=== PATIENT | female | born 1990 | race Caucasian/White ===

== ENCOUNTER 2016-06-02 20:57 | Emergency (ER) | payer SELFPAY ==
[2016-06-02 21:16] VITALS: BMI 29.0
--- NOTE | 2016-06-02 22:37 | PDOC ---
History of Present Illness - General History Source: Patient Exam Limitations: No Limitations - History of Present Illness Initial Comments: 06/02/16 22:46 Patient is a 26 year old female, , with no significant past medical history who presents to the ED accompanied by daughter who present to the ED with complaint of nausea, vomiting, cough, fever and headache. Patient reports 3 episodes of vomiting and constant nausea. Patient notes that she took 1 advil to alleviate the fever with no relief. She denies any recent travel. 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 <Marika Patel - Last Filed: 06/02/16 23:20> <Shahnaz Mckeon - Last Filed: 06/03/16 00:25> - General Chief Complaint: SIRS, Suspected/Possible Stated Complaint: HEADACHE/FEVER/PAIN Time Seen by Provider: 06/02/16 22:02 Past History <Marika Patel - Last Filed: 06/02/16 23:20> - Past Medical History Cardiac Disorders: Yes (no meds) HTN: Yes (no meds) Suicide Attempt (Hx): No - Immunization History Immunization Up to Date: Yes - Psycho/Social/Smoking Cessation Hx Anxiety: Yes Suicidal Ideation: No Smoking Status: No Smoking History: Never smoked Number of Cigarettes Smoked Daily: 0 Hx Alcohol Use: No Substance Use Type: None <hSahnaz Mckeon - Last Filed: 06/03/16 00:25> - Past Medical History Allergies/Adverse Reactions: Allergies Allergy/AdvReac Type Severity Reaction Status Date / Time No Known Allergies Allergy Verified 06/02/16 21:12 Home Medications: Ambulatory Orders Ibuprofen [Motrin -] 600 mg PO TID 06/02/16 Review of Systems - Review of Systems Able to Perform ROS?: Yes Comments:: 06/02/16 23:10 CONSTITUTIONAL: Present: fever, chills Absent: diaphoresis, generalized weakness, malaise, loss of appetite HEENT: Absent: rhinorrhea, nasal congestion, throat pain, throat swelling, difficulty swallowing, mouth swelling, ear pain, eye pain, visual Changes CARDIOVASCULAR: Absent: chest pain, syncope, palpitations, irregular heart rate, lightheadedness , peripheral edema RESPIRATORY: Present: cough Absent: shortness of breath, dyspnea with exertion, orthopnea, wheezing, stridor , hemoptysis GASTROINTESTINAL: Present: nausea, vomiting Absent: abdominal pain, abdominal distension, diarrhea, constipation, melena, hematochezia GENITOURINARY: Present: flank pain Absent: dysuria, frequency, urgency, hesitancy, hematuria, genital pain MUSCULOSKELETAL: Absent: myalgia, arthralgia, joint swelling SKIN: Absent: rash, itching, pallor HEMATOLOGIC/IMMUNOLOGIC: Absent: easy bleeding, easy bruising, lymphadenopathy, frequent infections ENDOCRINE: Absent: unexplained weight gain, unexplained weight loss, heat intolerance, cold intolerance NEUROLOGIC: Present: headache Absent:focal weakness or paresthesias, dizziness, unsteady gait, seizure, mental status changes, bladder or bowel incontinence PSYCHIATRIC: Absent: anxiety, depression, suicidal or homicidal ideation, hallucinations. <Marika Patel - Last Filed: 06/02/16 23:20> *Physical Exam - Vital Signs Last Vital Signs Temp Pulse Resp BP Pulse Ox 99 F 112 H 22 117/78 98 06/02/16 21:14 06/02/16 21:14 06/02/16 21:14 06/02/16 21:14 06/02/16 21:14 - Physical Exam Comments: 06/02/16 23:12 GENERAL: Well developed, well nourished. Awake and alert. No acute distress. HEENT: Normocephalic, atraumatic. PERRLA, EOMI. No conjunctival pallor. Sclera are non- icteric. Moist mucous membranes. +Oropharynx is errythematous. NECK: Supple. Full ROM. No JVD. Carotid pulses 2+ and symmetric, without bruits. No thyromegaly. No lymphadenopathy. CARDIOVASCULAR: Regular rate and rhythm. No murmurs, rubs, or gallops. Distal pulses are 2+ and symmetric. PULMONARY: No evidence of respiratory distress. Lungs clear to auscultation bilaterally. No wheezing, rales or rhonchi. ABDOMINAL: Soft. Non-tender. Non-distended. No rebound or guarding. No organomegaly. Normoactive bowel sounds. MUSCULOSKELETAL Normal range of motion at all joints. No bony deformities or tenderness. No CVA tenderness. EXTREMITIES: No cyanosis. No clubbing. No edema. No calf tenderness. SKIN: +Warm to touch and dry. Normal capillary refill. No rashes. No jaundice. NEUROLOGICAL: Alert, awake, appropriate. Cranial nerves 2-12 intact. No deficits to light touch and temperature in face, upper extremities and lower extremities. No motor deficits in the in face, upper extremities and lower extremities. Normoreflexic in the upper and lower extremities. Normal speech. PSYCHIATRIC: Cooperative. Good eye contact. Appropriate mood and affect. <Marika Patel - Last Filed: 06/02/16 23:20> - Vital Signs Last Vital Signs Temp Pulse Resp BP Pulse Ox 99 F 112 H 22 117/78 98 06/02/16 21:14 06/02/16 21:14 06/02/16 21:14 06/02/16 21:14 06/02/16 21:14 <Shahnaz Mckeon - Last Filed: 06/03/16 00:25> ED Treatment Course - LABORATORY CBC & Chemistry Diagram: 06/02/16 23:05 06/02/16 23:05 <Marika Patel - Last Filed: 06/02/16 23:20> - LABORATORY CBC & Chemistry Diagram: 06/02/16 23:05 06/02/16 23:05 <Shahnaz Mckeon - Last Filed: 06/03/16 00:25> *DC/Admit/Observation/Transfer - Attestations Scribe Attestion: 06/02/16 23:13 Documentation prepared by SAIGE Leroy, acting as medical program specialist for Shahnaz Mckeon MD. <Marika Patel - Last Filed: 06/02/16 23:20> <Shahnaz Mckeon - Last Filed: 06/03/16 00:25> Diagnosis at time of Disposition: Influenza due to influenza virus, type B Urinary tract infection Qualifiers: Urinary tract infection type: site unspecified Hematuria presence: without hematuria Qualified Code(s): N39.0 - Urinary tract infection, site not specified - Discharge Dispostion Disposition: HOME Condition at time of disposition: Stable - Patient Instructions Printed Discharge Instructions: DI for Influenza -- Adult, DI for Urinary Tract Infection (UTI) Additional Instructions: yOU HAVE THE FLU YOU ALSO HAVE A MILD UTI PLEASE TAKE MOTRIN OR TYLENOL FOR FEVER AND BODY ACHES STAY HYDRATED PLEASE JACQUARD LOOM CARD CHANGER YOUR PRESCRIPTIONS AT YOUR PHARMACY RETURN FOR ANY WORSENING SYMPTOMS
[2016-06-02] MEDS ORDERED: SODIUM CHLORIDE 1,000 ML IV STA (22:39)
[2016-06-02] MEDS ORDERED: ONDANSETRON 4 MG/2 ML VIAL IVPUSH ONE (22:40)
[2016-06-02] MEDS ORDERED: ACETAMINOPHEN 325 MG TABLET (FP) PO ONE (22:41)
[2016-06-02] MEDS ORDERED: ACETAMINOPHEN 325 MG TABLET (FP) ONE (22:45)
[2016-06-02] MEDS ORDERED: ONDANSETRON 4 MG/2 ML VIAL ONE (22:45)
[2016-06-02 23:16] LABS: BASOPHIL 0.3 % (0-2.0); EOSINOPHIL 0.2 % (0-4.5); MCH 30.7 pg (25.7-33.7); MCHC 33.3 g/dl (32.0-36.0); MEAN CELL VOLUME 92.2 fl (80-96); MEAN PLT VOLUME 9.5 fl (7.5-11.1); NEUTROPHILS 80.6 % (42.8-82.8); PLATELET COUNT 242 K/MM3 (134-434); RDW 13.3 % (11.6-15.6); WHITE BLOOD COUNT 10.4 K/mm3 (4.0-10.0)
[2016-06-02 23:24] LABS: URINE APPEARANCE CLOUDY; URINE BILIRUBIN NEGATIVE (NEGATIVE); URINE COLOR AMBER; URINE GLUCOSE (UA) NEGATIVE (NEGATIVE); URINE KETONE NEGATIVE (NEGATIVE); URINE NITRITE NEGATIVE (NEGATIVE); URINE UROBILINOGEN NEGATIVE E.U./dl (0.2-1.0)
[2016-06-02 23:26] LABS: URINE BLOOD 2+ (NEGATIVE); URINE LEUK ESTERASE 3+ (NEGATIVE); URINE PROTEIN 1+ (NEGATIVE)
[2016-06-02 23:28] LABS: URINE BACTERIA RARE /hpf (NONE SEEN); URINE MUCUS RARE; URINE RBC 11 /hpf (0-3); URINE WBC 99 /hpf (3-5)
[2016-06-03 00:07] LABS: ALBUMIN 3.2 g/dl (3.4-5.0); ANION GAP 10 (8-16); BILIRUBIN,TOTAL 0.5 mg/dL (0.2-1.0); CALCIUM 8.7 mg/dL (8.5-10.1); CO2 24 mmol/L (21-32); COCKROFT - GAULT 179.9195; CREATININE 0.6 mg/dL (0.55-1.02); GLUCOSE,RANDOM 109 mg/dL (74-106); SGOT/AST 11 U/L (15-37); SGPT/ALT 20 U/L (12-78)
[2016-06-03 00:08] LABS: ALK PHOS 86 U/L (45-117); TOT PROT 6.5 g/dl (6.4-8.2)
[2016-06-03] MEDS ORDERED: CEPHALEXIN MONOHYDRATE 500 MG CAPSULE (UD) PO ONE (00:22)
[2016-06-03 00:31] VITALS: BP 114/78; PULSE 116; TEMP 100.8
[2016-06-03] MEDS ORDERED: CEPHALEXIN MONOHYDRATE 250 MG CAPSULE (FP) ONE (00:33)
== END 2016-06-03 00:40 | disposition home or self-care (01) ==
LOC: JER 20:57
PROC: 3E033GC Introduction of Other Therapeutic Substance into Peripheral Vein, Percutaneous Approach (ICD-10-PCS; principal; 2016-06-02)
PROC: 3E0337Z Introduction of Electrolytic and Water Balance Substance into Peripheral Vein, Percutaneous Approach (ICD-10-PCS; 2016-06-02)
DX: N39.0 Urinary tract infection, site not specified (principal); J10.1 Influenza due to other identified influenza virus with other respiratory manifestations; I51.9 Heart disease, unspecified; F41.9 Anxiety disorder, unspecified
CPT/HCPCS: 36415; 80053; 81003; 81015; 84703; 85025; 87040; 87070; 87430; 87804; 99284-25

== ENCOUNTER 2016-06-03 19:03 | Emergency (ER) | payer SELFPAY ==
[2016-06-03 19:24] VITALS: BMI 29.0
--- NOTE | 2016-06-03 19:33 | PDOC ---
History of Present Illness - History of Present Illness Initial Comments: 06/03/16 20:00 Patient is a 26 year old female with no significant medical hx who is presenting to the ED via EMS for fever, body aches, frontal headache, and tachycardia. Patient was seen in the ED yesterday for nausea, vomiting, cough, fever and headache. She states that her nausea and vomiting have resolved. The patient took Tylenol today for her headache which offered no relief and decided to return to the ER for further evaluation. <Gema Gillette - Last Filed: 06/03/16 20:00> <Shahnaz Mckeon - Last Filed: 06/03/16 20:52> - General Chief Complaint: SIRS, Suspected/Possible Stated Complaint: HEADACHE Time Seen by Provider: 06/03/16 19:25 Past History <Gema Gillette - Last Filed: 06/03/16 20:00> - Past Medical History Cardiac Disorders: Yes (no meds) HTN: Yes (no meds) Suicide Attempt (Hx): No - Immunization History Immunization Up to Date: Yes - Psycho/Social/Smoking Cessation Hx Anxiety: Yes Suicidal Ideation: No Smoking Status: No Smoking History: Never smoked Number of Cigarettes Smoked Daily: 0 Hx Alcohol Use: No Drug/Substance Use Hx: No Substance Use Type: None <Shahnaz Mckeon - Last Filed: 06/03/16 20:52> - Past Medical History Allergies/Adverse Reactions: Allergies Allergy/AdvReac Type Severity Reaction Status Date / Time No Known Allergies Allergy Verified 06/03/16 19:17 Home Medications: Ambulatory Orders Ibuprofen [Motrin -] 600 mg PO TID 06/02/16 Cephalexin Monohydrate [Keflex -] 500 mg PO BID #14 capsule 06/03/16 Ondansetron [Zofran Odt -] 4 mg SL TID #6 od.tablet 06/03/16 Review of Systems - Review of Systems Comments:: 06/03/16 20:00 CONSTITUTIONAL: Present: fever, chills Absent: diaphoresis, generalized weakness, malaise, loss of appetite HEENT: Absent: rhinorrhea, nasal congestion, throat pain, throat swelling, difficulty swallowing, mouth swelling, ear pain, eye pain, visual changes CARDIOVASCULAR: Present: tachycardia Absent: chest pain, syncope, palpitations, irregular heart rate, lightheadedness , peripheral edema RESPIRATORY: Absent: cough, shortness of breath, dyspnea with exertion, orthopnea, wheezing, stridor, hemoptysis GASTROINTESTINAL: Absent: abdominal pain, abdominal distension, nausea, vomiting, diarrhea, constipation, melena, hematochezia GENITOURINARY: Absent: dysuria, frequency, urgency, hesitancy, hematuria, flank pain, genital pain MUSCULOSKELETAL: Present: myalgia Absent: arthralgia, joint swelling SKIN: Absent: rash, itching, pallor HEMATOLOGIC/IMMUNOLOGIC: Absent: easy bleeding, easy bruising, lymphadenopathy, frequent infections ENDOCRINE: Absent: unexplained weight gain, unexplained weight loss, heat intolerance, cold intolerance NEUROLOGIC: Present: headache Absent: focal weakness or paresthesia, dizziness, unsteady gait, seizure, mental status changes, bladder or bowel incontinence. PSYCHIATRIC: Absent: anxiety, depression, suicidal or homicidal ideation, hallucinations <Gema Gillette - Last Filed: 06/03/16 20:00> *Physical Exam - Vital Signs Last Vital Signs Temp Pulse Resp BP Pulse Ox 101.7 F H 124 H 24 125/74 98 06/03/16 19:48 06/03/16 19:17 06/03/16 19:17 06/03/16 19:17 06/03/16 19:17 - Physical Exam Comments: 06/03/16 20:01 GENERAL: Well developed, well nourished. Awake and alert. No acute distress. HEENT: Normocephalic, atraumatic. PERRLA, EOMI. No conjunctival pallor. Sclera are non- icteric. Moist mucous membranes. Oropharynx is clear. NECK: Supple. Full ROM. No JVD. Carotid pulses 2+ and symmetric, without bruits. No thyromegaly. No lymphadenopathy. CARDIOVASCULAR: Tachycardia. No murmurs, rubs, or gallops. Distal pulses are 2+ and symmetric. PULMONARY: No evidence of respiratory distress. Lungs clear to auscultation bilaterally. No wheezing, rales or rhonchi. ABDOMINAL: Soft. Non-tender. Non-distended. No rebound or guarding. No organomegaly. Normoactive bowel sounds. MUSCULOSKELETAL: Normal range of motion at all joints. No bony deformities or tenderness. No CVA tenderness. EXTREMITIES: No cyanosis. No clubbing. No edema. No calf tenderness. SKIN: Warm and dry. Normal capillary refill. No rashes. No jaundice. NEUROLOGICAL: Alert, awake, appropriate. Cranial nerves 2-12 intact. Normal speech. Gait is normal without ataxia. PSYCHIATRIC: Cooperative. Good eye contact. Appropriate mood and affect. <Gema Gillette - Last Filed: 06/03/16 20:00> - Vital Signs Last Vital Signs Temp Pulse Resp BP Pulse Ox 99.9 F H 124 H 24 125/74 98 06/03/16 19:17 06/03/16 19:17 06/03/16 19:17 06/03/16 19:17 06/03/16 19:17 <Shahnaz Mckeon - Last Filed: 06/03/16 20:52> ED Treatment Course - Medications Given in the ED: ED Medications Discontinued Medications Generic Name Dose Route Start Last Admin Trade Name Freq PRN Reason Stop Dose Admin Ketorolac Tromethamine 60 mg 06/03/16 19:34 06/03/16 19:43 Toradol Injection - IVPUSH 06/03/16 19:35 60 mg ONCE ONE Administration Ondansetron HCl 4 mg 06/03/16 19:35 06/03/16 19:43 Zofran Injection IVPUSH 06/03/16 19:36 4 mg ONCE ONE Administration <Gema Gillette - Last Filed: 06/03/16 20:00> *DC/Admit/Observation/Transfer - Attestations Scribe Attestion: 06/03/16 20:01 Documentation prepared by Gema Gillette, acting as medical radiation therapist for Shahnaz Mckeon MD. <Gema Gillette - Last Filed: 06/03/16 20:00> <Shahnaz Mckeon - Last Filed: 06/03/16 20:52> Diagnosis at time of Disposition: Influenza B - Discharge Dispostion Disposition: HOME Condition at time of disposition: Stable - Patient Instructions Printed Discharge Instructions: DI for Fever (Symptom) -- Adult, DI for Influenza -- Adult Additional Instructions: PLEASE TAKE TYLENOL OR MOTRIN FOR FEVER AND BODY ACHES TRY TO STAY HYDRATED REST
[2016-06-03] MEDS ORDERED: KETOROLAC TROMETHAMINE 60 MG/2 ML VIAL IVPUSH ONE (19:34)
[2016-06-03] MEDS ORDERED: SODIUM CHLORIDE 1,000 ML IV STA (19:35)
[2016-06-03] MEDS ORDERED: ONDANSETRON 4 MG/2 ML VIAL IVPUSH ONE (19:35)
[2016-06-03] MEDS ORDERED: KETOROLAC TROMETHAMINE 60 MG/2 ML VIAL ONE (19:40)
[2016-06-03] MEDS ORDERED: ONDANSETRON 4 MG/2 ML VIAL ONE (19:40)
[2016-06-03 20:51] VITALS: BP 120/67; PULSE 112; TEMP 98.7
== END 2016-06-03 20:58 | disposition home or self-care (01) ==
LOC: JER 19:03
PROC: 3E0333Z Introduction of Anti-inflammatory into Peripheral Vein, Percutaneous Approach (ICD-10-PCS; principal; 2016-06-03)
PROC: 3E033GC Introduction of Other Therapeutic Substance into Peripheral Vein, Percutaneous Approach (ICD-10-PCS; 2016-06-03)
PROC: 3E0337Z Introduction of Electrolytic and Water Balance Substance into Peripheral Vein, Percutaneous Approach (ICD-10-PCS; 2016-06-03)
DX: J10.1 Influenza due to other identified influenza virus with other respiratory manifestations (principal)
CPT/HCPCS: 99283-25

== ENCOUNTER 2016-12-24 22:59 | Emergency (ER) | payer OTHER ==
[2016-12-25 00:07] VITALS: BP 111/59; PULSE 92; TEMP 98.2; BMI 29.7
--- NOTE | 2016-12-25 01:26 | PDOC ---
*Physical Exam - Vital Signs Last Vital Signs Temp Pulse Resp BP Pulse Ox 98.2 F 92 H 18 111/59 100 12/25/16 00:06 12/25/16 00:06 12/25/16 00:06 12/25/16 00:06 12/25/16 00:06
[2016-12-25 02:03] LABS: URINE APPEARANCE SLCLOUDY; URINE BILIRUBIN NEGATIVE (NEGATIVE); URINE BLOOD 1+ (NEGATIVE); URINE COLOR LTYELLOW; URINE GLUCOSE (UA) NEGATIVE (NEGATIVE); URINE KETONE NEGATIVE (NEGATIVE); URINE NITRITE NEGATIVE (NEGATIVE); URINE PROTEIN NEGATIVE (NEGATIVE); URINE UROBILINOGEN NEGATIVE mg/dL (0.2-1.0)
[2016-12-25 02:10] LABS: URINE MUCUS RARE; URINE RBC 14; URINE WBC 1
[2016-12-25 02:13] LABS: BASOPHIL 0.5 % (0-2.0); EOSINOPHIL 1.5 % (0-4.5); MCHC 33.3 g/dl (32.0-36.0); MEAN CELL VOLUME 93.3 fl (80-96); MEAN PLT VOLUME 9.2 fl (7.5-11.1); NEUTROPHILS 37.3 % (42.8-82.8); PLATELET COUNT 303 K/MM3 (134-434); RDW 13.7 % (11.6-15.6); WHITE BLOOD COUNT 5.9 K/mm3 (4.0-10.0)
[2016-12-25 02:25] LABS: INR 0.99 (0.82-1.09); PROTHROMBIN TIME (PATIENT) 11.2 SEC (9.98-11.88)
[2016-12-25 02:37] LABS: ALBUMIN 3.4 g/dl (3.4-5.0); ANION GAP 8 (8-16); BILIRUBIN,TOTAL 0.2 mg/dL (0.2-1.0); CALCIUM 8.2 mg/dL (8.5-10.1); CO2 25 mmol/L (21-32); CREATININE 0.5 mg/dL (0.55-1.02); GLUCOSE,RANDOM 88 mg/dL (74-106); MAGNESIUM 1.9 mg/dL (1.8-2.4); SGOT/AST 9 U/L (15-37); SGPT/ALT 25 U/L (12-78); TOT PROT 6.8 g/dl (6.4-8.2)
[2016-12-25 02:39] LABS: ALK PHOS 85 U/L (45-117); CPK 114 IU/L (26-192); TROPONIN I < 0.02 ng/ml (0.00-0.05)
[2016-12-25] MEDS ORDERED: MAG HYDROX/AL HYDROX/SIMETH 355 ML ORAL.SUSP PO ONE (03:00)
[2016-12-25] MEDS ORDERED: PANTOPRAZOLE SODIUM 40 MG VIAL IVPUSH ONE (03:00)
[2016-12-25] MEDS ORDERED: FAMOTIDINE 20 MG/50 ML IVPB 20 MG/50 ML MG IVPB ONE ×2 (03:00→03:05)
[2016-12-25] MEDS ORDERED: MAG HYDROX/AL HYDROX/SIMETH 30 ML UNIT-DOSE CUP ONE (03:05)
[2016-12-25] MEDS ORDERED: PANTOPRAZOLE SODIUM 40 MG VIAL ONE (03:05)
--- NOTE | 2016-12-25 03:25 | PDOC ---
History of Present Illness - General Chief Complaint: Chest Pain Stated Complaint: CHES PAIN Time Seen by Provider: 12/25/16 01:23 - History of Present Illness Initial Comments: 12/25/16 03:23 CHIEF COMPLAINT: chest pain HISTORY OF PRESENT ILLNESS: 26 yo F s/p recent elective c/o of midsternal chest pain x 3 days, worse with inspiration. Patient reports as a "burning, or sharp" pain that moves up her down her mid sternum. She denies fever, chills, NVD, shortness of breath, palpitations. 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 PAST MEDICAL HISTORY: Denies past medical history FAMILY HISTORY: Denies SOCIAL HISTORY: Denies tobacco, alcohol, illicit drug use. SURGICAL HISTORY: Denies ALLERGIES: No known drug allergies REVIEW OF SYSTEMS General/Constitutional: Denies fever or chills. Denies weakness, weight change. HEENT: Denies change in vision. Denies ear pain or discharge. Denies sore throat. Cardiovascular: "I have too much pain in the middle here, it goes up and down like this." Respiratory: Denies cough, wheezing, or hemoptysis. Gastrointestinal: Denies nausea, vomiting, diarrhea or constipation. Genitourinary: Denies dysuria, frequency, or change in urination. Musculoskeletal: Denies joint or muscle swelling or pain. Denies neck or back pain. Skin: Denies rash. PHYSICAL EXAM General Appearance: Well-appearing, appropriately dressed. No apparent distress , no intoxication. HEENT: EOMI, PERRLA, normal ENT inspection, normal voice, TMs normal, pharynx normal. No conjunctival pallor. No photophobia, scleral icterus. Respiratory/Chest: Lungs CTAB. Cardiovascular: RRR. S1, S2. Vascular Pulses: Dorsalis-Pedis (R): 2+, Dorsalis-Pedis (L): 2+ Gastrointestinal/Abdominal: Normal bowel sounds. Abdomen soft, non-distended. No tenderness or rebound tenderness. No organomegaly, pulsatile mass, guarding , hernia, hepatomegaly, splenomegaly. Musculoskeletal/Extremities: Normal inspection. FROM of all extremities, normal capillary refill. Pelvis Stable. No CVA tenderness. No tenderness to extremities, pedal edema, swelling, erythema or deformity. Integumentary: Appropriate color, dry, warm. No cyanosis, erythema, jaundice or rash Neurologic: escrow representative II-XII intact. Fully oriented, alert. Appropriate mood/affect. Motor strength 5/5. No appreciable EOM palsy, facial droop or sensory deficit. Past History - Past Medical History Allergies/Adverse Reactions: Allergies Allergy/AdvReac Type Severity Reaction Status Date / Time No Known Allergies Allergy Verified 12/25/16 00:04 Home Medications: Ambulatory Orders Famotidine [Pepcid] 20 mg PO DAILY #10 tablet 12/25/16 Cardiac Disorders: Yes (no meds) COPD: No HTN: Yes (no meds) - Immunization History Immunization Up to Date: Yes - Suicide/Smoking/Psychosocial Hx Smoking Status: No Smoking History: Never smoked Number of Cigarettes Smoked Daily: 0 Hx Alcohol Use: No Drug/Substance Use Hx: No Substance Use Type: None *Physical Exam - Vital Signs Last Vital Signs Temp Pulse Resp BP Pulse Ox 98.2 F 92 H 18 111/59 100 12/25/16 00:06 12/25/16 00:06 12/25/16 00:06 12/25/16 00:06 12/25/16 00:06 ED Treatment Course - LABORATORY CBC & Chemistry Diagram: 12/25/16 01:56 12/25/16 01:56 - ADDITIONAL ORDERS Additional order review: Laboratory Results 12/25/16 12/25/16 12/25/16 01:56 01:56 01:56 PT with INR 11.20 INR 0.99 D-Dimer 269 H Sodium 136 Potassium 3.8 Chloride 103 Carbon Dioxide 25 Anion Gap 8 BUN 12 D Creatinine 0.5 L Creat Clearance w eGFR > 60 Random Glucose 88 Calcium 8.2 L Magnesium 1.9 Total Bilirubin 0.2 D AST 9 L ALT 25 D Alkaline Phosphatase 85 Creatine Kinase 114 Troponin I < 0.02 Total Protein 6.8 Albumin 3.4 Beta HCG, Quant 5340.6 Urine Color Urine Appearance Urine pH Ur Specific [place] Urine Protein Urine Glucose (UA) Urine Ketones Urine Blood Urine Nitrite Urine Bilirubin Urine Urobilinogen Urine WBC (Auto) Urine RBC (Auto) Ur Epithelial Cells Urine Mucus Urine HCG, Qual 12/25/16 01:50 PT with INR INR D-Dimer Sodium Potassium Chloride Carbon Dioxide Anion Gap BUN Creatinine Creat Clearance w eGFR Random Glucose Calcium Magnesium Total Bilirubin AST ALT Alkaline Phosphatase Creatine Kinase Troponin I Total Protein Albumin Beta HCG, Quant Urine Color Ltyellow Urine Appearance Slcloudy Urine pH 5.0 D Ur Specific [place] 1.015 Urine Protein Negative Urine Glucose (UA) Negative Urine Ketones Negative Urine Blood 1+ H Urine Nitrite Negative Urine Bilirubin Negative Urine Urobilinogen Negative Urine WBC (Auto) 1 Urine RBC (Auto) 14 Ur Epithelial Cells Moderate Urine Mucus Rare Urine HCG, Qual Positive 12/25/16 01:56 RBC 3.85 MCV 93.3 MCHC 33.3 RDW 13.7 MPV 9.2 Neutrophils % 37.3 L D Lymphocytes % 54.0 H D Monocytes % 6.7 Eosinophils % 1.5 D Basophils % 0.5 - RADIOLOGY Radiology Studies Ordered: Category Date Time Status CHEST PA & LAT [RAD] Stat Radiology 12/25/16 01:53 Taken - Medications Given in the ED: ED Medications Discontinued Medications Generic Name Dose Route Start Last Admin Trade Name Freq PRN Reason Stop Dose Admin Al Hydroxide/Mg Hydroxide 30 ml 12/25/16 03:00 12/25/16 03:15 Mylanta Suspension - PO 12/25/16 03:01 30 ml ONCE ONE Administration Pantoprazole Sodium 40 mg 12/25/16 03:00 12/25/16 03:15 Protonix Iv IVPUSH 12/25/16 03:01 40 mg ONCE ONE Administration Medical Decision Making - Medical Decision Making 26 yo F s/p recent elective c/o of midsternal chest pain x 3 days, worse with inspiration. Patient is well appearing and in no apparent distress. -EKG, CXR -CBC, CMP, PT/INR, Mg, trop, D-dimer D-dimer 269, unlikely DVT or PE. Clinical presentation most consistent with GERD. -IVF, Pepcid, Protonix, Maalox Patient reports feeling better and states she wants to go home. At this time she reports all her pain has resolved. Advised patient of signs and symptoms for return to ER; patient verbalized understanding and agrees to plan. *DC/Admit/Observation/Transfer Diagnosis at time of Disposition: GERD (gastroesophageal reflux disease) Qualifiers: Esophagitis presence: with esophagitis Qualified Code(s): K21.0 - Gastro- esophageal reflux disease with esophagitis - Discharge Dispostion Disposition: HOME Condition at time of disposition: Stable Admit: No - Prescriptions Prescriptions: Famotidine [Pepcid] 20 mg PO DAILY #10 tablet - Referrals Referrals: Chantal Botello MD [Staff Physician] - - Patient Instructions Printed Discharge Instructions: DI for Gastroesophageal Reflux Disease (GERD), DI for Atypical Chest Pain Additional Instructions: Please take medication as prescribed. Follow up with your primary care doctor within the next 2-3 days. If symptoms persist past 5-7 days, please follow up with gastroenterology. If you develop any new shortness of breath, chest pain, palpitations, or any new or worsening symptoms, please return to the ER immediately. - Post Discharge Activity
--- NOTE | 2016-12-25 10:53 | EKG ---
Test Reason : Blood Pressure : / mmHG Vent. Rate : 089 BPM Atrial Rate : 089 BPM P-R Int : 136 ms QRS Dur : 096 ms QT Int : 368 ms P-R-T Axes : 042 023 020 degrees QTc Int : 447 ms NORMAL SINUS RHYTHM INCOMPLETE RIGHT BUNDLE BRANCH BLOCK BORDERLINE ECG WHEN COMPARED WITH ECG OF 07-JUL-2014 14:07, NO SIGNIFICANT CHANGE WAS FOUND Confirmed by GILBERTO SAWYER MD ([id number]) on 12/25/2016 10:52:35 AM Referred By: Confirmed By:GILBERTO SAWYER MD
== END 2016-12-25 05:22 | disposition home or self-care (01) ==
LOC: JER 22:59
PROC: 3E033GC Introduction of Other Therapeutic Substance into Peripheral Vein, Percutaneous Approach (ICD-10-PCS; principal; 2016-12-24)
DX: K21.0 Gastro-esophageal reflux disease with esophagitis (principal); I10 Essential (primary) hypertension
CPT/HCPCS: 36415; 71020-TC; 80053; 81003; 81015; 82550; 83735; 84484; 84702; 84703; 85025; 85379; 85610; 87086; 93005; 93010; 99284-25

== ENCOUNTER 2017-01-04 23:25 | Emergency (ER) | payer OTHER ==
[2017-01-05 00:20] VITALS: BP 120/76; PULSE 88; TEMP 97.6; BMI 27.4
[2017-01-05 00:30] LABS: BASOPHIL 0.8 % (0-2.0); EOSINOPHIL 2.8 % (0-4.5); MCH 31.4 pg (25.7-33.7); MCHC 33.7 g/dl (32.0-36.0); MEAN CELL VOLUME 92.9 fl (80-96); MEAN PLT VOLUME 9.3 fl (7.5-11.1); NEUTROPHILS 49.5 % (42.8-82.8); PLATELET COUNT 309 K/MM3 (134-434); RDW 13.1 % (11.6-15.6); WHITE BLOOD COUNT 5.7 K/mm3 (4.0-10.0)
[2017-01-05] MEDS ORDERED: ACETAMINOPHEN 500 MG TABLET (FP) PO STA (01:11)
[2017-01-05] MEDS ORDERED: ACETAMINOPHEN 325 MG TABLET (FP) ONE (01:12)
--- NOTE | 2017-01-05 01:44 | PDOC ---
History of Present Illness - General History Source: Patient Exam Limitations: No Limitations - History of Present Illness Initial Comments: 01/05/17 01:46 The patient is a 26 year old female, A2, with no significant past medical history, who presents to the emergency department with vaginal bleeding and abdominal pain onset today. She reports that [facility]. Today she notes that she has gone through roughly 5-6 pads due to the heavy bleeding. She reports that her regular menstrual periods are not as heavy as this current vaginal bleeding. She describes her abdominal pain as a cramping sensation, without radiation or modifying factors. The patient denies chest pain, shortness of breath, headache and dizziness. Denies fever, chills, nausea, vomit, diarrhea and constipation. Denies dysuria, frequency, urgency and hematuria. Allergies: None Past surgical history: None reported Social history: No alcohol, tobacco or drug use reported <Doug Niño - Last Filed: 01/05/17 01:46> <Shahnaz Mckeon - Last Filed: 01/05/17 03:24> - General Chief Complaint: Vaginal Bleeding Stated Complaint: VAGINAL BLEEDING Time Seen by Provider: 01/04/17 23:33 Past History <Doug Niño - Last Filed: 01/05/17 01:46> - Past Medical History Cardiac Disorders: Yes (no meds) COPD: No HTN: Yes (no meds) - Immunization History Immunization Up to Date: Yes - Suicide/Smoking/Psychosocial Hx Smoking Status: No Smoking History: Never smoked Have you smoked in the past 12 months: No Number of Cigarettes Smoked Daily: 0 Information on smoking cessation initiated: No Hx Alcohol Use: No Drug/Substance Use Hx: No Substance Use Type: None <Shahnaz Mckeon - Last Filed: 01/05/17 03:24> - Past Medical History Allergies/Adverse Reactions: Allergies Allergy/AdvReac Type Severity Reaction Status Date / Time No Known Allergies Allergy Verified 01/05/17 00:18 Home Medications: Ambulatory Orders Famotidine [Pepcid] 20 mg PO DAILY #10 tablet 12/25/16 Review of Systems - Review of Systems Able to Perform ROS?: Yes Comments:: 01/05/17 01:46 GENERAL/CONSTITUTIONAL: No fever or chills. No weakness. HEAD, EYES, EARS, NOSE AND THROAT: No change in vision. No ear pain or discharge. No sore throat.- CARDIOVASCULAR: No chest pain or shortness of breath RESPIRATORY: No cough, wheezing, or hemoptysis. GASTROINTESTINAL: (+) Abdominal pain. No nausea, vomiting, diarrhea or constipation. GENITOURINARY: (+) Vaginal bleeding. No dysuria, frequency, or change in urination. MUSCULOSKELETAL: No joint or muscle swelling or pain. No neck or back pain. SKIN: No rash NEUROLOGIC: No headache, vertigo, loss of consciousness, or change in strength/ sensation. ENDOCRINE: No increased thirst. No abnormal weight change HEMATOLOGIC/LYMPHATIC: No anemia, easy bleeding, or history of blood clots. ALLERGIC/IMMUNOLOGIC: No hives or skin allergy. <Doug Niño - Last Filed: 01/05/17 01:46> *Physical Exam - Vital Signs Last Vital Signs Temp Pulse Resp BP Pulse Ox 97.6 F 88 20 120/76 100 01/05/17 00:18 01/05/17 00:18 01/05/17 00:18 01/05/17 00:18 01/05/17 00:18 - Physical Exam Comments: 01/05/17 01:47 GENERAL: Awake, alert, and fully oriented, in no acute distress HEAD: No signs of trauma, normocephalic, atraumatic EYES: PERRLA, EOMI, sclera anicteric, conjunctiva clear ENT: Auricles normal inspection, hearing grossly normal, nares patent, oropharynx clear without exudates. Moist mucosa NECK: Normal ROM, supple, no lymphadenopathy, JVD, or masses LUNGS: No distress, speaks full sentences, clear to auscultation bilaterally HEART: Regular rate and rhythm, normal S1 and S2, no murmurs, rubs or gallops, peripheral pulses normal and equal bilaterally. ABDOMEN: Soft, nontender, normoactive bowel sounds. No guarding, no rebound. No masses EXTREMITIES : Normal inspection, Normal range of motion, no edema. No clubbing or cyanosis. NEUROLOGICAL: Cranial nerves II through XII grossly intact. Normal speech, normal gait, no focal sensorimotor deficits SKIN: Warm, Dry, normal turgor, no rashes or lesions noted. VAGINAL EXAM: No huge blood clots noted. Mild to moderate blood in vaginal canal. <Doug Niño - Last Filed: 01/05/17 01:46> - Vital Signs Last Vital Signs Temp Pulse Resp BP Pulse Ox 97.6 F 88 20 120/76 100 01/05/17 00:18 01/05/17 00:18 01/05/17 00:18 01/05/17 00:18 01/05/17 00:18 <Shahnaz Mckeon - Last Filed: 01/05/17 03:24> ED Treatment Course - LABORATORY CBC & Chemistry Diagram: 01/05/17 00:16 - ADDITIONAL ORDERS Additional order review: Laboratory Results 01/05/17 01/05/17 00:16 00:16 Beta HCG, Quant 1627.3 Serum , Qual Positive 01/05/17 00:16 RBC 3.85 MCV 92.9 MCHC 33.7 RDW 13.1 MPV 9.3 Neutrophils % 49.5 D Lymphocytes % 36.9 D Monocytes % 10.0 Eosinophils % 2.8 D Basophils % 0.8 - Medications Given in the ED: ED Medications Discontinued Medications Generic Name Dose Route Start Last Admin Trade Name Freq PRN Reason Stop Dose Admin Acetaminophen 975 mg 01/05/17 01:11 01/05/17 01:17 Tylenol - PO 01/05/17 01:12 Not Given ONCE STA <Doug Niño - Last Filed: 01/05/17 01:46> - LABORATORY CBC & Chemistry Diagram: 01/05/17 00:16 - ADDITIONAL ORDERS Additional order review: Laboratory Results 01/05/17 01/05/17 00:16 00:16 Beta HCG, Quant 1627.3 Serum , Qual Positive 01/05/17 00:16 RBC 3.85 MCV 92.9 MCHC 33.7 RDW 13.1 MPV 9.3 Neutrophils % 49.5 D Lymphocytes % 36.9 D Monocytes % 10.0 Eosinophils % 2.8 D Basophils % 0.8 - RADIOLOGY Radiology Studies Ordered: Category Date Time Status TRANSVAGINAL US PREG [US] Stat Ultrasound 01/05/17 01:13 Ordered - Medications Given in the ED: ED Medications Discontinued Medications Generic Name Dose Route Start Last Admin Trade Name Freq PRN Reason Stop Dose Admin Acetaminophen 975 mg 01/05/17 01:11 01/05/17 01:17 Tylenol - PO 01/05/17 01:12 Not Given ONCE STA <Shahnaz Mckeon - Last Filed: 01/05/17 03:24> Medical Decision Making - Medical Decision Making 01/05/17 03:04 26-year-old female presents because her IUD that was placed December 29 spontaneous came out. SHe is not having sexual intercourse at the time. She didn't pull the string. She said she just started to have significant cramping and vaginal bleeding and the bleeding became severe and she noted that the IUD was in one of the clots. The patient was on December 13 and went to [facility] and was given methot[facility]ate. She said she was given 4 pills to take She then returned to [facility] on December 29 and had pelvic ultrasound done and she was told everything was okay and she had the IUD placed that day -she said she was 9 weeks 1 day on Dec 13 today her bhcg is about 1600. On Dec 25 is was > 5000 pelvic US no pole ,? some retained products PLAN [facility] FOLLOW UP . 01/05/17 03:15 <Shahnaz Mckeon - Last Filed: 01/05/17 03:24> *DC/Admit/Observation/Transfer - Attestations Scribe Attestion: 01/05/17 01:47 Documentation prepared by Doug Niño, acting as medical billing and coding specialist for Shahnaz Mckeon MD <Doug Niño - Last Filed: 01/05/17 01:46> <Shahnaz Mckeon - Last Filed: 01/05/17 03:24> Diagnosis at time of Disposition: Prior methotrexate therapy, Pelvic cramping, Positive blood test IUD migration Qualifiers: Encounter type: initial encounter Qualified Code(s): T83.89XA - Other specified complication of genitourinary prosthetic devices, implants and grafts , initial encounter - Discharge Dispostion Disposition: HOME Condition at time of disposition: Stable - Referrals Referrals: Radha Moreno [Primary Care Provider] - - Patient Instructions Printed Discharge Instructions: DI for Vaginal Bleeding During Additional Instructions: YOUR IUD CAME OUT AND YOU NEED TO SEE YOUR CARDIAC CATHETERIZATION TECHNOLOGIST SOON POSSIBLE ALSO YOUR BHCG IS 1627 AND THIS NEEDS TO BE FOLLOWED AND REPEATED YOU NEED TO HAVE A REPEAT PELVIC ULTRASOUND - Post Discharge Activity
== END 2017-01-05 03:38 | disposition home or self-care (01) ==
LOC: JER 23:25
DX: T83.89XA Other specified complication of genitourinary prosthetic devices, implants and grafts, initial encounter (principal); O03.6 Delayed or excessive hemorrhage following complete or unspecified spontaneous abortion
CPT/HCPCS: 36415; 76817-TC; 84702; 84703; 85025; 99283-25

== ENCOUNTER 2018-02-06 01:56 | Emergency (ER) | payer SELFPAY ==
[2018-02-06 02:32] VITALS: BMI 28.2
--- NOTE | 2018-02-06 02:40 | PDOC ---
History of Present Illness - General Chief Complaint: Facial Droop Stated Complaint: ALLERGIC REACTION Time Seen by Provider: 02/06/18 02:40 History Source: Patient - History of Present Illness Timing/Duration: momentarily Severity: mild Past History - Travel Traveled outside of the country in the last 30 days: No Close contact w/someone who was outside of country & ill: No - Past Medical History Allergies/Adverse Reactions: Allergies Allergy/AdvReac Type Severity Reaction Status Date / Time No Known Allergies Allergy Verified 01/05/17 00:18 Home Medications: Ambulatory Orders Valacyclovir HCl [Valtrex] 1,000 mg PO TID #21 tablet 02/06/18 predniSONE [Deltasone -] 60 mg PO DAILY #15 tablet 02/06/18 Cardiac Disorders: Yes (no meds) COPD: No HTN: Yes (no meds) - Immunization History Immunization Up to Date: Yes - Suicide/Smoking/Psychosocial Hx Smoking Status: No Smoking History: Never smoked Have you smoked in the past 12 months: No Number of Cigarettes Smoked Daily: 0 Hx Alcohol Use: No Drug/Substance Use Hx: No Substance Use Type: None Review of Systems - Review of Systems Constitutional: No: Symptoms Reported, See HPI, Chills, Diaphoresis, Fever, Loss of Appetite, Malaise, Night Sweats, Weakness, Weight Stable, Unintentional Wgt. Loss, Unexplained wgt Loss, Other HEENTM: Yes: Mouth Pain (on left), Other (facial paralyisis on the right.) Respiratory: No: Symptoms reported, See HPI, Cough, Orthopnea, Shortness of Breath, SOB with Exertion, SOB at Rest, Stridor, Wheezing, Productive cough, Hemoptysis, Other Cardiac (ROS): No: Symptoms Reported, See HPI, Chest Pain, Edema, Irregular Heart Rate, Lightheadedness, Palpitations, Syncope, Chest Tightness, Other ABD/GI: No: Symptoms Reported, See HPI, Abdominal Distended, Abd. Pain w/ defecation, Blood Streaked Bowels, Constipated, Diarrhea, Difficulty Swallowing , Nausea, Poor Appetite, Poor Fluid Intake, Rectal Bleeding, Vomiting, Indigestion, Abdominal cramping, Tarry Stools, Other : No: Symptoms Reported, See HPI, Burning, Dysuria, Discharge, Frequency, Flank Pain, Hematuria, Incontinence, Pain, Urgency, Testicular Mass, Testicular Swelling, Lesions, Testicular Pain, Other Musculoskeletal: No: Symptoms Reported, See HPI, Back Pain, Gout, Joint Pain, Joint Swelling, Muscle Pain, Muscle Weakness, Neck Pain, Joint Stiffness, Other Integumentary: No: Symptoms Reported, See HPI, Bruising, Change in Color, Change in Hair/Nails, Dryness, Erythema, Flushing, Lesions, Lumps, Pallor, Pruritus, Rash, Sweating, Other Neurological: No: Symptoms reported, See HPI, Headache, Numbness, Paresthesia, Pre-Existing Deficit, Seizure, Tingling, Tremors, Weakness, Unsteady Gait, Ataxia, Dizziness, Other *Physical Exam - Vital Signs Last Vital Signs Temp Pulse Resp BP Pulse Ox 98.2 F 101 H 19 121/82 98 02/06/18 02:08 02/06/18 02:08 02/06/18 02:08 02/06/18 02:08 02/06/18 02:08 - Physical Exam General Appearance: Yes: Nourished, Appropriately Dressed HEENT: positive: EOMI, SUSI, Normal ENT Inspection, Normal Voice, TMs Normal, Pharynx Normal, Other (Pt has left face movement and movement of the left forehead; unclear right forehead wrinking - I will get a CT scan to evaluate for central deficits.) Neck: positive: Trachea midline, Supple. negative: Tender Respiratory/Chest: positive: Lungs Clear, Normal Breath Sounds. negative: Chest Tender Cardiovascular: positive: Regular Rhythm, Regular Rate, S1, S2 Gastrointestinal/Abdominal: positive: Normal Bowel Sounds, Soft Musculoskeletal: positive: Normal Inspection. negative: CVA Tenderness Extremity: positive: Normal Capillary Refill, Normal Inspection, Normal Range of Motion Integumentary: positive: Normal Color, Dry, Warm Neurologic: positive: Fully Oriented, Alert, Normal Mood/Affect, Normal Response , Motor Strength 5/5, Other (facial paralysis). negative: teaching specialists II-XII NML intact , Facial Droop Moderate Sedation - Procedure Monitoring Vital Signs: Procedure Monitoring Vital Signs Temperature 98.2 F 02/06/18 02:08 Pulse Rate 101 H 02/06/18 02:08 Respiratory Rate 19 02/06/18 02:08 Blood Pressure 121/82 02/06/18 02:08 O2 Sat by Pulse Oximetry (%) 98 02/06/18 02:08 Medical Decision Making - Medical Decision Making 02/06/18 05:16 Patient Name: JAZMINE SOLIS THIS IS A PRELIMINARY REPORT FROM [facility] DATE OF SERVICE: 2018-02-06 04:26:00 IMAGES: 141 Exam: CT head without IV contrast. Clinical indication:Right facial decreased movement. Comparison:None available. Technique: Axial unenhanced CT images from the skull base through the brain were obtained followed by coronal and sagital reformats. Findings: The visualized bony structures are unremarkable. The visualized paranasal sinuses and mastoid air cells are clear. There is no evidence of intra-or extra-axial hemorrhage. The ventricles and basilar cisterns are unremarkable. There is no evidence of intracranial mass, acute infarct, or midline shift. Impression: Negative unenhanced CT of the brain Pt stable for D/C with meds for bells palsy *DC/Admit/Observation/Transfer Diagnosis at time of Disposition: Eisenberg's palsy - Discharge Dispostion Disposition: HOME Condition at time of disposition: Stable Decision to Admit order: No - Prescriptions Prescriptions: predniSONE [Deltasone -] 60 mg PO DAILY #15 tablet Valacyclovir HCl [Valtrex] 1,000 mg PO TID #21 tablet - Referrals - Patient Instructions Printed Discharge Instructions: Eisenberg's Palsy - Post Discharge Activity
[2018-02-06] MEDS ORDERED: valACYclovir HCL 1000 MG TABLET PO ONE (02:44)
[2018-02-06] MEDS ORDERED: ARTIFICIAL TEARS (POLYVINYL ALCOHOL) OPTH DROPS OU ONE (02:44)
[2018-02-06] MEDS ORDERED: predniSONE 10 MG TABLET (UD) ONE (03:31)
[2018-02-06] MEDS ORDERED: predniSONE 20 MG TABLET (UD) ONE (03:31)
[2018-02-06] MEDS ORDERED: predniSONE 20 MG TABLET (UD) PO SCH ×3 (03:34→10:00)
[2018-02-06 04:23] VITALS: BP 123/78; PULSE 99; TEMP 97.6
== END 2018-02-06 05:55 | disposition home or self-care (01) ==
LOC: JER 01:56
DX: G51.0 Bell's palsy (principal); I10 Essential (primary) hypertension
CPT/HCPCS: 70450-TC; 84703; 99284-25

== ENCOUNTER 2018-04-13 14:00 | Emergency (ER) | payer OTHER ==
[2018-04-13 14:12] VITALS: BP 127/79; PULSE 87; TEMP 98.6; BMI 96.8
--- NOTE | 2018-04-13 14:15 | PDOC ---
Rapid Medical Evaluation Chief Complaint: Respiratory Time Seen by Provider: 04/13/18 14:14 Medical Evaluation: Allergies Allergy/AdvReac Type Severity Reaction Status Date / Time No Known Allergies Allergy Verified 04/13/18 14:08 Vital Signs Temp Pulse Resp BP Pulse Ox 98.6 F 87 18 127/79 100 04/13/18 14:10 04/13/18 14:10 04/13/18 14:10 04/13/18 14:10 04/13/18 14:10 04/13/18 14:14 I have performed a brief in-person evaluation of this patient. The patient presents with a chief complaint of: Tactile fever, chills, sore throat, body aches and headache since last night Pertinent physical exam findings:heart: RRR. lungs CTAB. no acute distress I have ordered the following: rapid flu. rapid strep test The patient will proceed to the ED for further evaluation. Discharge Disposition - Diagnosis Malaise and fatigue - Discharge Dispostion Condition at time of disposition: Stable - Referrals - Patient Instructions - Post Discharge Activity
--- NOTE | 2018-04-13 14:45 | PDOC ---
History of Present Illness - General Chief Complaint: Respiratory Stated Complaint: Nausea/Vomiting Time Seen by Provider: 04/13/18 14:14 History Source: Patient Exam Limitations: No Limitations - History of Present Illness Initial Comments: 04/13/18 14:46 Here with complaints of acute onset of chills, body aches, fevers with sore throat pain and moist nonproductive cough since yesterday evening. Timing/Duration: reports: getting worse Severity: reports: mild, moderate Associated Symptoms: reports: chest pain/soreness, cough, dizziness, fever/ chills, headache, nasal congestion Past History - Travel Traveled outside of the country in the last 30 days: No Close contact w/someone who was outside of country & ill: No - Past Medical History Allergies/Adverse Reactions: Allergies Allergy/AdvReac Type Severity Reaction Status Date / Time No Known Allergies Allergy Verified 04/13/18 14:08 Home Medications: Ambulatory Orders Oseltamivir Phosphate [Tamiflu -] 75 mg PO BID #10 capsule 04/13/18 Cardiac Disorders: Yes (no meds) COPD: No HTN: Yes (no meds) - Immunization History Immunization Up to Date: Yes - Suicide/Smoking/Psychosocial Hx Smoking Status: No Smoking History: Never smoked Have you smoked in the past 12 months: No Number of Cigarettes Smoked Daily: 0 Hx Alcohol Use: No Drug/Substance Use Hx: No Substance Use Type: None Review of Systems - Review of Systems Able to Perform ROS?: Yes Is the patient limited [place] proficient: Yes Constitutional: Yes: Symptoms Reported, See HPI, Chills, Fever, Loss of Appetite , Malaise HEENTM: Yes: Symptoms Reported, See HPI, Nose Congestion, Throat Pain, Difficulty Swallowing Respiratory: Yes: Symptoms reported, See HPI, Cough. No: Wheezing Musculoskeletal: Yes: Symptoms Reported, See HPI, Muscle Pain All Other Systems: Reviewed and Negative *Physical Exam - Vital Signs Last Vital Signs Temp Pulse Resp BP Pulse Ox 98.6 F 87 18 127/79 100 04/13/18 14:10 04/13/18 14:10 04/13/18 14:10 04/13/18 14:10 04/13/18 14:10 - Physical Exam General Appearance: Yes: Nourished, Appropriately Dressed, Apparent Distress, Mild Distress HEENT: positive: SUSI, TMs Normal, Pharynx Normal Neck: positive: Supple. negative: Tender Respiratory/Chest: positive: Lungs Clear, Normal Breath Sounds Gastrointestinal/Abdominal: positive: Normal Bowel Sounds, Soft. 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 NML intact, Fully Oriented, Alert, Normal Mood/ Affect, Normal Response, Motor Strength 5/5 Moderate Sedation - Procedure Monitoring Vital Signs: Procedure Monitoring Vital Signs Temperature 98.6 F 04/13/18 14:10 Pulse Rate 87 04/13/18 14:10 Respiratory Rate 18 04/13/18 14:10 Blood Pressure 127/79 04/13/18 14:10 O2 Sat by Pulse Oximetry (%) 100 04/13/18 14:10 Progress Note - Progress Note Progress Note: Influenza testing negative however patient has all clinical evidence of influenza therefore will treat with Tamiflu *DC/Admit/Observation/Transfer Diagnosis at time of Disposition: Influenzal acute upper respiratory infection - Discharge Dispostion Disposition: HOME Condition at time of disposition: Stable Decision to Admit order: No - Prescriptions Prescriptions: Oseltamivir Phosphate [Tamiflu -] 75 mg PO BID #10 capsule - Referrals - Patient Instructions Printed Discharge Instructions: DI for Viral Upper Respiratory Infection -- Adult Additional Instructions: Rest, drink lots of fluids: Teas, water, soups, Pedialyte Saltwater gargles Steamy showers/seem to face break up mucus Old-fashioned treatments help! Avoid contact with others until fevers and cough resolved as this is very contagious Lots of handwashing and good hygiene Continue [id number] medications for symptomatic relief Tylenol or Motrin for fever and pain Take all of Tamiflu as directed: 1 tab every 12 hours for 5 days Followup with private physician in one to 2 days as needed or if worsening Return to emergency department for worsened symptoms, fevers, dehydration Influenza takes between 5 and 7 days for resolution To not participate in any activity, work, or school until fevers and cough are gone for at least one day - Post Discharge Activity Forms/Work/School Notes: Back to Work
== END 2018-04-13 15:26 | disposition home or self-care (01) ==
LOC: JERFT 14:00
DX: J11.1 Influenza due to unidentified influenza virus with other respiratory manifestations (principal)
CPT/HCPCS: 87070; 87804; 87880; 99281-25

== ENCOUNTER 2018-04-21 17:58 | Emergency (ER) | payer OTHER ==
[2018-04-21 18:05] VITALS: BP 130/87; PULSE 101; TEMP 97.4; BMI 29.7
[2018-04-21] MEDS ORDERED: diphenhydrAMINE HCL 25 MG CAPSULE (FP) PO ONE ×2 (18:05→18:42)
[2018-04-21] MEDS ORDERED: RANITIDINE HCL 150 MG TABLET (FP) PO ONE (18:05)
--- NOTE | 2018-04-21 18:05 | PDOC ---
Rapid Medical Evaluation Time Seen by Provider: 04/21/18 18:02 Medical Evaluation: Allergies Allergy/AdvReac Type Severity Reaction Status Date / Time No Known Allergies Allergy Verified 04/13/18 14:08 04/21/18 18:02 I have performed a brief in-person evaluation of this patient. The patient presents with a chief complaint of: Rash after eating lentil soup and taking APAP Pertinent physical exam findings: No drooling/stridor/wheezing. Hives present to trunk and extremities. I have ordered the following: Benadryl, zantac The patient will proceed to the ED for further evaluation. Discharge Disposition - Diagnosis Urticaria - Referrals - Patient Instructions - Post Discharge Activity
[2018-04-21] MEDS ORDERED: RANITIDINE HCL 150 MG TABLET (FP) ONE (18:42)
[2018-04-21] MEDS ORDERED: DEXAMETHASONE SOD PHOSPHATE 10 MG/1 ML VIAL ONE (18:45)
[2018-04-21] MEDS ORDERED: DEXAMETHASONE LIQUID 0.5 MG/5 ML 240 ML BULK BOTTLE PO ONE (18:46)
--- NOTE | 2018-04-21 18:51 | PDOC ---
History of Present Illness - General Chief Complaint: Allergic Reaction Stated Complaint: ALLERGIC REACTION Time Seen by Provider: 04/21/18 18:02 - History of Present Illness Initial Comments: 04/21/18 18:47 28-year-old female without comorbidities presents for evaluation of an itchy rash which developed after eating a bowl of lentil soup she has no difficulty breathing or shortness of breath Past History - Past Medical History Allergies/Adverse Reactions: Allergies Allergy/AdvReac Type Severity Reaction Status Date / Time No Known Allergies Allergy Verified 04/13/18 14:08 Home Medications: Ambulatory Orders Oseltamivir Phosphate [Tamiflu -] 75 mg PO BID #10 capsule 04/13/18 Cardiac Disorders: Yes (no meds) COPD: No HTN: Yes (no meds) - Immunization History Immunization Up to Date: Yes - Suicide/Smoking/Psychosocial Hx Smoking Status: No Smoking History: Never smoked Have you smoked in the past 12 months: No Number of Cigarettes Smoked Daily: 0 Hx Alcohol Use: No Drug/Substance Use Hx: No Substance Use Type: None Review of Systems - Review of Systems Respiratory: No: Cough, Shortness of Breath, Wheezing Integumentary: Yes: Pruritus, Rash *Physical Exam - Vital Signs Last Vital Signs Temp Pulse Resp BP Pulse Ox 97.4 F L 101 H 20 130/87 100 04/21/18 18:02 04/21/18 18:02 04/21/18 18:02 04/21/18 18:02 04/21/18 18:02 - Physical Exam Comments: 04/21/18 18:49 HEAD: NC/AT EYES: Conjuntiva clear Ears: Canals and TM's normal NOSE: No d/c THROAT: Moist mucous membrances, oral pharanx clear, uvula midline NECK: Supple without adenopathy CARDIAC: S1 S2 LUNGS: CTA Full and Equal breath sounds ABDOMEN: Soft NT ND MS: Full ROM in all joints without edema NEUROLOGIC: No gross sensory or motor deficits, NVID SKIN: Normal color and temperature resolving wheals on bilateral upper extremities and shoulders as compared to a picture she showed me on her cell phone which showed raised wheals Moderate Sedation - Procedure Monitoring Vital Signs: Procedure Monitoring Vital Signs Temperature 97.4 F L 04/21/18 18:02 Pulse Rate 101 H 04/21/18 18:02 Respiratory Rate 20 04/21/18 18:02 Blood Pressure 130/87 03/13/19 18:02 O2 Sat by Pulse Oximetry (%) 100 04/21/18 18:02 ED Treatment Course - Medications Given in the ED: ED Medications Discontinued Medications Generic Name Dose Route Start Last Admin Trade Name Dani PRN Reason Stop Dose Admin Diphenhydramine HCl 50 mg 04/21/18 18:05 04/21/18 18:43 Benadryl - PO 04/21/18 18:06 50 mg ONCE ONE Administration Ranitidine HCl 150 mg 04/21/18 18:05 04/21/18 18:43 Zantac - PO 04/21/18 18:06 150 mg ONCE ONE Administration Medical Decision Making - Medical Decision Making 04/21/18 18:50 Resolving ALLERGIC rash. Will treat with Decadron H2-monica and the drill follow-up with PCP *DC/Admit/Observation/Transfer Diagnosis at time of Disposition: Urticaria - Discharge Dispostion Disposition: HOME Condition at time of disposition: Stable Decision to Admit order: No - Referrals Referrals: Yoanna Rodriguez FNP [Primary Care Provider] - - Patient Instructions Printed Discharge Instructions: DI for General Allergic Reactions Additional Instructions: He may continue with Benadryl at home for itching as directed. Return to the emergency room should symptoms worsen and follow-up with your primary care physician in one to 2 days for further evaluation and treatment options. - Post Discharge Activity
== END 2018-04-21 18:59 | disposition home or self-care (01) ==
LOC: JERFT 17:58
DX: L50.0 Allergic urticaria (principal); T78.1XXA Other adverse food reactions, not elsewhere classified, initial encounter
CPT/HCPCS: 99281-25

== ENCOUNTER 2018-08-25 22:20 | Emergency (ER) | payer OTHER ==
[2018-08-25 22:33] VITALS: BMI 29.8
[2018-08-26] MEDS ORDERED: METOCLOPRAMIDE HCL INJECTION 10 MG/2 ML VIAL IVPUSH ONE (00:09)
[2018-08-26] MEDS ORDERED: KETOROLAC TROMETHAMINE 30 MG/1 ML VIAL IVPUSH ONE (00:09)
[2018-08-26] MEDS ORDERED: SODIUM CHLORIDE 0.9% 500 ML INFUS.BAG IV ONE (00:09)
--- NOTE | 2018-08-26 00:09 | PDOC ---
History of Present Illness - General Chief Complaint: Headache Stated Complaint: HEADACHE Time Seen by Provider: 08/25/18 23:14 - History of Present Illness Initial Comments: 08/26/18 00:06 CHIEF COMPLAINT: headache HISTORY OF PRESENT ILLNESS: 28 yo 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 Patient reports she has taking ibuprofen w/o relief. Denies nausea but endorses photophobia. Patient states she has had history of headaches "but not as bad as this." LMP 2 days ago. Denies any chance of . No recent travel or sick contacts. PAST MEDICAL HISTORY: Denies past medical history FAMILY HISTORY: Denies SOCIAL HISTORY: Denies tobacco, alcohol, illicit drug use. SURGICAL HISTORY: Denies ALLERGIES: No known drug allergies REVIEW OF SYSTEMS General/Constitutional: Denies fever or chills. Denies weakness, weight change. HEENT: Photophobia. Denies change in vision. Denies ear pain or discharge. Denies sore throat. Cardiovascular: Denies chest pain or shortness of breath. Respiratory: Denies cough, wheezing, or hemoptysis. Gastrointestinal: Denies nausea, vomiting, diarrhea or constipation. Denies rectal bleeding. Genitourinary: Denies dysuria, frequency, or change in urination. Musculoskeletal: Denies joint or muscle swelling or pain. Denies neck or back pain. Skin and breasts: Denies rash or easy bruising. Neurologic: Headache x 1 week. Denies vertigo, loss of consciousness, or loss of sensation. PHYSICAL EXAM General Appearance: Well-appearing, appropriately dressed. No apparent distress , no intoxication. HEENT: EOMI, PERRLA, normal ENT inspection, normal voice, TMs normal, pharynx normal. No conjunctival pallor. No photophobia, scleral icterus. Neck: Supple. Trachea midline. No tenderness, rigidity, carotid bruit, stridor , lymphadenopathy, or thyromegaly. Respiratory/Chest: Lungs CTAB. No shortness of breath, chest tenderness, respiratory distress, accessory muscle use. No crackles, rales, rhonchi, stridor , wheezing, dullness Cardiovascular: RRR. S1, S2. No JVD, murmur, bradycardia, tachycardia. Vascular Pulses: Dorsalis-Pedis (R): 2+, Dorsalis-Pedis (L): 2+ Gastrointestinal/Abdominal: Normal bowel sounds. Abdomen soft, non-distended. No tenderness or rebound tenderness. No organomegaly, pulsatile mass, guarding , hernia, hepatomegaly, splenomegaly. Lymphatic: No adenopathy, tenderness. Musculoskeletal/Extremities: Normal inspection. FROM of all extremities, normal capillary refill. Pelvis Stable. No CVA tenderness. No tenderness to extremities, pedal edema, swelling, erythema or deformity. Integumentary: Appropriate color, dry, warm. 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 Fully oriented, alert. Appropriate mood/affect. Motor strength 5/5. No appreciable EOM palsy, facial droop or sensory deficit. A&Ox3, follow commands, respond appropriately CN2-12: conjugate gaze, pupil round, equal and reactive to light. Visual field full to confrontation. EOMI without nystagmus, pursuit is smooth without saccade. Facial sensation and muscle activation intact bilaterally. Hearing intact bilaterally. Palate elevate symmetrically. Shoulder shrug and neck turn full strength. Tongue protrude midline. Motor: UE and LE strength 5/5 throughout bilaterally. Muscle tone and bulk normal. Reflex: biceps brachioradialis triceps patellar achilles L 2+ 2+ 2+ 2+ 2+ R 2+ 2+ 2+ 2+ 2+ Plantar reflex downwards bilaterally. Cerebellar: Rapid-alternating movement with regular rhythm without bradykinesia. Eatiso-ba-oqgp and xdby-oa-anqj intact bilaterally without dysmetria or overshoot. Gait narrow based. No shuffling. Full hip flexion and knee flexion. Negative Romberg No involuntary movement noted. No pronator drift. No clonus. 08/26/18 01:39 Past History - Past Medical History Allergies/Adverse Reactions: Allergies Allergy/AdvReac Type Severity Reaction Status Date / Time No Known Allergies Allergy Verified 08/25/18 22:34 Home Medications: Ambulatory Orders Oseltamivir Phosphate [Tamiflu -] 75 mg PO BID #10 capsule 04/13/18 Cardiac Disorders: Yes (no meds) COPD: No HTN: Yes (no meds) - Immunization History Immunization Up to Date: Yes - Suicide/Smoking/Psychosocial Hx Smoking Status: No Smoking History: Never smoked Have you smoked in the past 12 months: No Number of Cigarettes Smoked Daily: 0 Hx Alcohol Use: No Drug/Substance Use Hx: No Substance Use Type: None *Physical Exam - Vital Signs Last Vital Signs Temp Pulse Resp BP Pulse Ox 98.0 F 86 18 134/94 99 08/25/18 22:30 08/25/18 22:30 08/25/18 22:30 08/25/18 22:30 08/25/18 22:30 Medical Decision Making - Medical Decision Making 08/26/18 00:25 28 yo 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 -Toradol, Reglan, Benadryl -Fluids 08/26/18 01:39 Patient reassessed, at this time she states she feels better and is ready to go home. Advised patient to take medication as prescribed and follow up with neurology if symptoms persist. Advised patient of signs and symptoms for return to ED. Patient verbalized understanding and agrees to plan. *DC/Admit/Observation/Transfer Diagnosis at time of Disposition: Migraine Qualifiers: Migraine type: unspecified Status migrainosus presence: without status migrainosus Intractability: not intractable Qualified Code(s): G43.909 - Migraine, unspecified, not intractable, without status migrainosus - Discharge Dispostion Disposition: HOME Condition at time of disposition: Stable Decision to Admit order: No - Referrals Referrals: Bobby Montero [Primary Care Provider] - Abdullahi Birmingham MD [Staff Physician] - - Patient Instructions Printed Discharge Instructions: DI for Migraine Print Language: UPPER SORBIAN - Post Discharge Activity
[2018-08-26] MEDS ORDERED: METOCLOPRAMIDE HCL INJECTION 10 MG/2 ML VIAL ONE (00:48)
[2018-08-26] MEDS ORDERED: KETOROLAC TROMETHAMINE 30 MG/1 ML VIAL ONE (00:48)
[2018-08-26 02:07] VITALS: BP 130/72; PULSE 74; TEMP 98.6
== END 2018-08-26 02:13 | disposition home or self-care (01) ==
LOC: JER 22:20
PROC: 3E0333Z Introduction of Anti-inflammatory into Peripheral Vein, Percutaneous Approach (ICD-10-PCS; principal; 2018-08-25)
PROC: 3E0337Z Introduction of Electrolytic and Water Balance Substance into Peripheral Vein, Percutaneous Approach (ICD-10-PCS; 2018-08-25)
PROC: 3E033GC Introduction of Other Therapeutic Substance into Peripheral Vein, Percutaneous Approach (ICD-10-PCS; 2018-08-25)
DX: G43.909 Migraine, unspecified, not intractable, without status migrainosus (principal)
CPT/HCPCS: 99282-25

== ENCOUNTER 2018-10-08 22:34 | Emergency (ER) | payer OTHER ==
[2018-10-08 22:55] VITALS: BMI 29.7
--- NOTE | 2018-10-09 01:06 | PDOC ---
History of Present Illness <Eduin Dodson - Last Filed: 10/09/18 06:19> - History of Present Illness Initial Comments: Ms. Glenda Santana is a 28 y/o female with PMH of left mireles's palsy, presenting today with headache and lightheadedness that started 3 days ago associated with photophobia. Reports that the headache is bilateral and in the temporal/frontal areas. Reports that the headache worsens at 5pm every day and goes on throughout the night. Difficulty sleeping. Denies nausea/vomiting. Reports 1 day of fever that resolved on its own. Denies weakness, chest pain, shortness of breath. PMH: no hx of migraines, no hx of strokes or brain bleeds SurgHx: none SocHx: no etoh, no drugs <Roel Lindsey - Last Filed: 10/09/18 07:04> - General Chief Complaint: Headache Stated Complaint: HEADACHES Time Seen by Provider: 10/09/18 00:39 Past History <Eduin Dodson - Last Filed: 10/09/18 06:19> - Past Medical History Cardiac Disorders: Yes (no meds) COPD: No HTN: Yes (no meds) - Immunization History Immunization Up to Date: Yes - Suicide/Smoking/Psychosocial Hx Smoking Status: No Smoking History: Never smoked Have you smoked in the past 12 months: No Number of Cigarettes Smoked Daily: 0 Information on smoking cessation initiated: No Hx Alcohol Use: No Drug/Substance Use Hx: No Substance Use Type: None <Roel Lindsey - Last Filed: 10/09/18 07:04> - Past Medical History Allergies/Adverse Reactions: Allergies Allergy/AdvReac Type Severity Reaction Status Date / Time No Known Allergies Allergy Verified 10/09/18 00:25 Home Medications: Ambulatory Orders NK [No Known Home Medication] 10/09/18 Review of Systems - Review of Systems Comments:: GENERAL/CONSTITUTIONAL: Reports fever. No chills. No weakness._ HEAD, EYES, EARS, NOSE AND THROAT: No change in vision. Reports photophobia. No change in hearing. No sore throat._ CARDIOVASCULAR: No chest pain or shortness of breath. RESPIRATORY: Denies cough, hemoptysis_ GASTROINTESTINAL: No nausea, vomiting, diarrhea or constipation._ GENITOURINARY: No dysuria, frequency, or change in urination._ MUSCULOSKELETAL: No joint or muscle swelling or pain. Reports neck pain. No back pain. SKIN: No rash_ NEUROLOGIC: Reports headache and lightheadedness. No vertigo, loss of consciousness, or change in strength/sensation._ ENDOCRINE: No increased thirst. No abnormal weight change_ HEMATOLOGIC/LYMPHATIC: No anemia, easy bleeding, or history of blood clots._ ALLERGIC/IMMUNOLOGIC: No hives or skin allergy._ <Roel Lindsey - Last Filed: 10/09/18 07:04> *Physical Exam - Vital Signs Last Vital Signs Temp Pulse Resp BP Pulse Ox 97.6 F 79 20 90/53 L 98 10/09/18 05:05 10/09/18 05:05 10/09/18 05:05 10/09/18 05:05 10/09/18 05:05 <Eduin Dodson - Last Filed: 10/09/18 06:19> - Vital Signs Last Vital Signs Temp Pulse Resp BP Pulse Ox 98.0 F 94 H 18 128/74 100 10/08/18 22:52 10/08/18 22:52 10/08/18 22:52 10/08/18 22:52 10/08/18 22:52 - Physical Exam Comments: GENERAL: Awake, alert, and oriented to person/place/time, in no acute distress_ HEAD: No signs of trauma, normocephalic, atraumatic _ EYES: PERRLA, EOMI, sclera anicteric, conjunctiva clear. No papilledema. ENT: Hearing grossly normal, nares patent, oropharynx clear without exudates. No uvular deviation. Moist mucosa_ NECK: Normal ROM, supple, no lymphadenopathy, JVD, or masses_ LUNGS: No distress, speaks in full sentences, clear to auscultation bilaterally _ HEART: Regular rate and rhythm, normal S1 and S2, no murmurs appreciated, peripheral pulses normal and equal bilaterally._ ABDOMEN: Soft, nontender, normoactive bowel sounds. No guarding, no rebound. No masses_ EXTREMITIES: Normal inspection, Normal range of motion, no edema. No clubbing or cyanosis_ SKIN: Warm, Dry, normal turgor, no rashes or lesions noted_ Neuro CN II-XII tested and intact. Sensation intact to sharp/dull differentiation in all extremities. Motor: Normal tone and bulk. No abnormal movements appreciated. No pronator drift. Strength tested and 5/5 in bilateral wrist flexion/extension, elbow flexion/extension, shoulder abduction, straight leg raise, knee flexion/ extension, ankle dorsiflexion/plantarflexion. Patient ambulates with a steady gait. Coordination: Finger to nose and heel to baptiste testing intact bilaterally. Reflexes: Brachioradialis, biceps, and patellar reflexes WNL and symmetric bilaterally. Babinski with downgoing toes bilaterally. <Roel Lindsey - Last Filed: 10/09/18 07:04> Procedures - Lumbar Puncture Indication: Pseudotumor Cerebri, Headache CT Scan: Yes Betadine Prep: Yes Position: Right lateral decubitus Site: L3-L4 Local Anesthesia: 1% Lidocaine with epi Volume(ml): 0 Lumbar Puncture Kit: Adult Needle Size(gauge): 25 Opening Pressure(mmHg): unable to obtain Closing Pressure(mmHg): unable to obtain Traumatic Tap: No Complications: Dry Tap <Eduin Dodson - Last Filed: 10/09/18 06:19> ED Treatment Course - LABORATORY CBC & Chemistry Diagram: 10/09/18 01:35 10/09/18 01:35 - ADDITIONAL ORDERS Additional order review: Laboratory Results 10/09/18 10/09/18 10/09/18 01:35 01:35 01:35 PT with INR 11.80 INR 1.00 PTT (Actin FS) 32.2 Sodium Potassium Chloride Carbon Dioxide Anion Gap BUN Creatinine Est GFR (CKD-EPI)AfAm Est GFR (CKD-EPI)NonAf Random Glucose Calcium Total Bilirubin AST ALT Alkaline Phosphatase Total Protein Albumin Serum , Qual Negative 10/09/18 01:35 PT with INR INR PTT (Actin FS) Sodium 140 Potassium 4.2 Chloride 107 Carbon Dioxide 28 Anion Gap 5 L BUN 10.1 Creatinine 0.6 Est GFR (CKD-EPI)AfAm 141.76 Est GFR (CKD-EPI)NonAf 122.31 Random Glucose 119 H Calcium 9.0 Total Bilirubin 0.2 AST 21 ALT 25 Alkaline Phosphatase 111 Total Protein 6.2 L Albumin 3.2 L Serum , Qual 10/09/18 01:35 RBC 3.87 MCV 92.6 MCHC 32.4 RDW 13.5 MPV 9.3 Neutrophils % 29.2 L D Lymphocytes % 57.8 H D Monocytes % 7.4 Eosinophils % 4.9 H Basophils % 0.7 - RADIOLOGY Radiology Studies Ordered: Category Date Time Status HEAD CT WITHOUT CONTRAST [CT] Stat CT Scan 10/09/18 01:[address] W/O CONTRAST [CT] Stat CT Scan 10/09/18 01:18 Taken - Medications Given in the ED: ED Medications Discontinued Medications Generic Name Dose Route Start Last Admin Trade Name Dani PRN Reason Stop Dose Admin Diphenhydramine HCl 25 mg 10/09/18 01:19 10/09/18 01:47 Benadryl Injection - IVPUSH 10/09/18 01:20 25 mg ONCE ONE Administration Ketorolac Tromethamine 30 mg 10/09/18 05:56 10/09/18 06:19 Toradol Injection - IVPUSH 10/09/18 05:57 30 mg ONCE ONE Administration Metoclopramide HCl 10 mg 10/09/18 01:19 10/09/18 01:47 Reglan Injection - IVPUSH 10/09/18 01:20 10 mg ONCE ONE Administration <Eduin Dodson - Last Filed: 10/09/18 06:19> - LABORATORY CBC & Chemistry Diagram: 10/09/18 01:35 10/09/18 01:35 <Roel Lindsey - Last Filed: 10/09/18 07:04> Medical Decision Making - Medical Decision Making 28F presenting with 3 days of bilateral frontal/temporal headache and photophobia. No nausea/vomiting. 1 day fever. DDx includes cluster WATKINS vs migraines vs less likely meningitis or SAH. -CBC, CMP, coags, test -CT head and sinuses -reglan and benadryl 10/09/[address] head and sinuses show no acute process or pathology. Labs reviewed and wnl. 10/09/18 05:49 LP attempted. Unable to obtain CSF fluid. 10/09/18 07:02 Patient reports headache has improved. Plan to d/c home, f/u with neurologist. <Roel Lindsey - Last Filed: 10/09/18 07:04> *DC/Admit/Observation/Transfer <Eduin Dodson - Last Filed: 10/09/18 06:19> <Roel Lindsey - Last Filed: 10/09/18 07:04> Diagnosis at time of Disposition: Headache Qualifiers: Headache type: unspecified Headache chronicity pattern: unspecified pattern Intractability: not intractable Qualified Code(s): R51 - Headache - Discharge Dispostion Disposition: HOME Condition at time of disposition: Stable - Referrals Referrals: Josh Neumann DO [Staff Physician] - - Patient Instructions Printed Discharge Instructions: DI for Headache Additional Instructions: Please make a follow up appointment with neurology (Dr. Neumann or a neurologist of your choice). If you experience any new, worsening, or concerning symptoms, including severe headache, changes in vision, high fever, weakness, chest pain, shortness of breath, or any other symptoms, please return to the emergency department.
[2018-10-09] MEDS ORDERED: METOCLOPRAMIDE HCL INJECTION 10 MG/2 ML VIAL IVPUSH ONE (01:19)
[2018-10-09] MEDS ORDERED: METOCLOPRAMIDE HCL INJECTION 10 MG/2 ML VIAL ONE (01:26)
[2018-10-09 01:48] LABS: BASO % 0.7 % (0-2.0); EOS % 4.9 % (0-4.5); HEMATOCRIT 35.9 % (32.4-45.2); HEMOGLOBIN 11.6 GM/dL (10.7-15.3); LYMPH % 57.8 % (8-40); MCHC 32.4 g/dl (32.0-36.0); MEAN CELL VOLUME 92.6 fl (80-96); MEAN PLT VOLUME 9.3 fl (7.5-11.1); MONO % 7.4 % (3.8-10.2); NEUT % 29.2 % (42.8-82.8); PLATELET COUNT 299 K/MM3 (134-434); RBC 3.87 M/mm3 (3.60-5.2); RDW 13.5 % (11.6-15.6); WHITE BLOOD COUNT 6.3 K/mm3 (4.0-10.0)
--- NOTE | 2018-10-09 01:59 | PDOC ---
Documentation entered by Diana Hoffman SCRIBE, acting as scribe for Amanda Cade MD. Amanda Cade MD: This documentation has been prepared by the Yasmin costello Xhesika, SCRIBE, under my direction and personally reviewed by me in its entirety. I confirm that the documentation accurately reflects all work, treatment, procedures, and medical decision making performed by me. Attending Attestation - Resident Resident Name: Roel Lindsey - ED Attending Attestation I have performed the following: I have examined & evaluated the patient, The case was reviewed & discussed with the resident, I agree w/resident's findings & plan - HPI HPI: 10/09/18 01:23 The patient is a 28 year old female with a significant PMH of L [place] Palsy who presents to the emergency department for 3 days of headache. The patient describes the headache as gradual, located at her temporal and frontal regions, worsened at night and associated with photophobia, lightheadedness, nausea, and fever (yesterday, resolved). The patient notes she took Tylenol and Motrin with no relief of symptoms. Patient denies any family history of migraines or HTN. The patient denies chest pain, shortness of breath. Denies chills, cough, vomiting, diarrhea and constipation. Denies dysuria, frequency, urgency and hematuria. Allergies: NKDA - Physicial Exam PE: 10/09/18 01:24 GENERAL: Awake, alert, and fully oriented, in no acute distress. HEAD: No signs of trauma. (+) photophobia. EYES: PERRLA, EOMI, sclera anicteric, conjunctiva clear ENT: Auricles normal inspection, hearing grossly normal, nares patent, oropharynx clear without exudates. Moist mucosa NECK: Normal ROM, supple, no lymphadenopathy, JVD, or masses LUNGS: Breath sounds equal, clear to auscultation bilaterally. No wheezes, and no crackles HEART: Regular rate and rhythm, normal S1 and S2, no murmurs, rubs or gallops ABDOMEN: Soft, nontender, normoactive bowel sounds. No guarding, no rebound. No masses EXTREMITIES: Normal range of motion, no edema. No clubbing or cyanosis. No cords, erythema, or tenderness NEUROLOGICAL: Cranial nerves II through XII grossly intact. Normal speech, normal gait SKIN: Warm, Dry, normal turgor, no rashes or lesions noted. - Medical Decision Making 10/09/18 04:13 Patient Name: JAZMINE SOLIS THIS IS A PRELIMINARY REPORT FROM [facility] DATE OF SERVICE: 2018-10-09 03:05:23 IMAGES: 191 EXAM: HEAD CT WITHOUT CONTRAST HISTORY: Headache COMPARISON: None. FINDINGS: No evidence of hemorrhage, acute territorial infarction, mass effect, midline shift, hydrocephalus, or extra-axial collections. No hyperdense arterial or venous sign Clear paranasal sinuses are mastoid air cells, middle ear cavities The calvarium and overlying soft tissues are unremarkable. IMPRESSION: 1. No acute intracranial pathology 10/09/18 19:25 Attempt at spinal tap unsuccessful and pt is refusing further attempts. She understands that an intracranial bleed cannot be definitively diagnosed any other way. Pt is feeling better after treatment in the ER and she will follow with neurology.
[2018-10-09 02:01] LABS: PROTHROMBIN TIME (PATIENT) 11.8 SEC (9.7-13.0)
[2018-10-09 02:23] LABS: ALBUMIN 3.2 g/dl (3.4-5.0); BILIRUBIN,TOTAL 0.2 mg/dL (0.2-1); BLOOD UREA NITROGEN 10.1 mg/dL (7-18); CREATININE 0.6 mg/dL (0.55-1.3); POTASSIUM 4.2 mmol/L (3.5-5.1); TOT PROT 6.2 g/dl (6.4-8.2)
[2018-10-09] MEDS ORDERED: LIDOCAINE HCL 2% (20ML MULTI-DOSE VIAL) NR ONE (05:11)
[2018-10-09] MEDS ORDERED: KETOROLAC TROMETHAMINE 30 MG/1 ML VIAL IVPUSH ONE (05:56)
[2018-10-09] MEDS ORDERED: KETOROLAC TROMETHAMINE 30 MG/1 ML VIAL ONE (06:13)
[2018-10-09] MEDS ORDERED: ACETAMINOPHEN/CAFFEINE/BUTALBITAL 1 TAB PO ONE (06:40)
[2018-10-09] MEDS ORDERED: ACETAMINOPHEN/CAFFEINE/BUTALBITAL 1 TAB ONE (07:15)
[2018-10-09 07:30] VITALS: BP 108/77; PULSE 85; TEMP 97.8
== END 2018-10-09 07:28 | disposition home or self-care (01) ==
LOC: JER 22:34
PROC: 00JU3ZZ Inspection of Spinal Canal, Percutaneous Approach (ICD-10-PCS; principal; 2018-10-08)
PROC: 3E0333Z Introduction of Anti-inflammatory into Peripheral Vein, Percutaneous Approach (ICD-10-PCS; 2018-10-08)
PROC: 3E033GC Introduction of Other Therapeutic Substance into Peripheral Vein, Percutaneous Approach (ICD-10-PCS; 2018-10-08)
PROC: 3E033GC Introduction of Other Therapeutic Substance into Peripheral Vein, Percutaneous Approach (ICD-10-PCS; 2018-10-08)
DX: R51 Headache (principal)
CPT/HCPCS: 36415; 62270; 70450-TC; 70486-TC; 80053; 84703; 85025; 85610; 85730; 96374; 96375; 99283-25

== ENCOUNTER 2019-02-10 22:21 | Emergency (ER) | payer OTHER ==
[2019-02-10 22:34] VITALS: BP 118/71; PULSE 94; TEMP 98.2; BMI 29.0
[2019-02-11] MEDS ORDERED: diphenhydrAMINE HCL 25 MG CAPSULE (FP) PO ONE ×2 (01:14→01:27)
--- NOTE | 2019-02-11 01:14 | PDOC ---
History of Present Illness - General Chief Complaint: Itching Stated Complaint: ALLERGY History Source: Patient Exam Limitations: No Limitations - History of Present Illness Initial Comments: 02/11/19 01:20 28F denies pmh here with diffuse urticaria. Pt states that she noted itchiness to her arms and trunk starting yesterday and saw raised welts where she was itching and where ever she scratched. Denies any new soaps, detergents, perfumes, changes in living situation, exposures to novel substances or environmental irritants. No sick contacts, recent travel, f/c, n/v, d/c Past History - Past Medical History Allergies/Adverse Reactions: Allergies Allergy/AdvReac Type Severity Reaction Status Date / Time No Known Allergies Allergy Verified 02/11/19 00:09 Home Medications: Ambulatory Orders NK [No Known Home Medication] 10/09/18 Cardiac Disorders: Yes (no meds) COPD: No HTN: Yes (no meds) - Immunization History Immunization Up to Date: Yes - Psycho Social/Smoking Cessation Hx Smoking Status: No Smoking History: Never smoked Have you smoked in the past 12 months: No Number of Cigarettes Smoked Daily: 0 Hx Alcohol Use: No Drug/Substance Use Hx: No Substance Use Type: None Review of Systems - Review of Systems Able to Perform ROS?: Yes Constitutional: No: Symptoms Reported, See HPI, Chills, Diaphoresis, Fever, Loss of Appetite, Malaise, Night Sweats, Weakness, Weight Stable, Unintentional Wgt. Loss, Unexplained wgt Loss, Other HEENTM: No: Symptoms Reported, See HPI, Eye Pain, Blurred Vision, Tearing, Recent change in vision, Double Vision, Cataracts, Ear Pain, Ocular Prothesis, Ear Discharge, Nose Pain, Nose Congestion, Tinnitus, Nose Bleeding, Hearing Loss , Throat Pain, Throat Swelling, Mouth Pain, Dental Problems, Difficulty Swallowing, Mouth Swelling, Other Respiratory: No: Symptoms reported, See HPI, Cough, Orthopnea, Shortness of Breath, SOB with Exertion, SOB at Rest, Stridor, Wheezing, Productive cough, Hemoptysis, Other Cardiac (ROS): No: Symptoms Reported, See HPI, Chest Pain, Edema, Irregular Heart Rate, Lightheadedness, Palpitations, Syncope, Chest Tightness, Other ABD/GI: No: Symptoms Reported, See HPI, Abdominal Distended, Abd. Pain w/ defecation, Blood Streaked Bowels, Constipated, Diarrhea, Difficulty Swallowing , Nausea, Poor Appetite, Poor Fluid Intake, Rectal Bleeding, Vomiting, Indigestion, Abdominal cramping, Tarry Stools, Other : No: Symptoms Reported, See HPI, Burning, Dysuria, Discharge, Frequency, Flank Pain, Hematuria, Incontinence, Pain, Urgency, Testicular Mass, Testicular Swelling, Lesions, Testicular Pain, Other Musculoskeletal: No: Symptoms Reported, See HPI, Back Pain, Gout, Joint Pain, Joint Swelling, Muscle Pain, Muscle Weakness, Neck Pain, Joint Stiffness, Other Integumentary: Yes: See HPI, Pruritus Psychiatric: No: Anxiety, Depression, Frequent Crying, Stressors, Sleep Pattern Change, Emotional Problems, Mood Swings, Change in Appetite, Other Endocrine: No: Symptoms Reported, See HPI, Excessive Sweating, Flushing, Intolerance to Cold, Intolerance to Heat, Increased Hunger, Increased Thirst, Increased Urine, Unexplained Weight Gain, Unexplained Weight Loss, Change in Weight, Other Hematologic/Lymphatic: No: Symptoms Reported, See HPI, Anemia, Blood Clots, Easy Bleeding, Easy Bruising, Bleeding Diathesis, Lymph Node Abnormalities, Swollen Glands, Other *Physical Exam - Vital Signs Last Vital Signs Temp Pulse Resp BP Pulse Ox 98.2 F 94 H 19 118/71 99 02/10/19 22:31 02/10/19 22:31 02/10/19 22:31 02/10/19 22:31 02/10/19 22:31 - Physical Exam 02/11/19 01:23 GENERAL: Well-appearing, well-nourished. No apparent distress. HEENT: Normocephalic, atraumatic. PERRL, EOM intact, no oral swelling, masses CARDIOVASCULAR: Normal S1, S2. Regular rate and rhythm. PULMONARY: Clear to auscultation bilaterally. normal wob, no stridor ABDOMEN: Soft, non-distended, non-tender. EXTREMITIES: Normal ROM in all four extremities. No gross deformities. SKIN: diffuse urticaria, blanching, faint excoriations on arms NEUROLOGICAL: No focal neurological deficits. Medical Decision Making - Medical Decision Making 02/11/19 01:24 Patient here with about a day of urticaria unclear provocation No respiratory symptoms, no signs/symptoms of infectious etiology, No stigmata of infestation will give diphenhydramine and re-assess dispo per clinical course 02/11/19 03:32 Patient was not found when called for re-evaluation Likely eloped with friend who was seen and discharge earlier Discharge - Discharge Information Problems reviewed: Yes Clinical Impression/Diagnosis: Rash Condition: Improved Disposition: ELOPED - Admission No - Follow up/Referral - Patient Discharge Instructions - Post Discharge Activity
== END 2019-02-11 03:01 | disposition left against medical advice (07) ==
LOC: JER 22:21
DX: L50.9 Urticaria, unspecified (principal)
CPT/HCPCS: 99281-25

== ENCOUNTER 2019-09-20 16:12 | Inpatient (IN) | payer OTHER ==
[2019-09-20] MEDS ORDERED: LACTATED RINGERS SOLUTION 1,000 ML IV SCH (17:00)
[2019-09-20 18:26] LABS: EPI CELLS 32 /uL (0-25.1); HYALINE CASTS 1 /uL (0-3.1); URINE APPEARANCE CLOUDY; URINE BACTERIA 2891 /uL (0-1359); URINE BILIRUBIN NEGATIVE (NEGATIVE); URINE COLOR YELLOW; URINE GLUCOSE (UA) NEGATIVE (NEGATIVE); URINE KETONE NEGATIVE (NEGATIVE); URINE LEUK ESTERASE 3+ (NEGATIVE); URINE NITRITE NEGATIVE (NEGATIVE); URINE PROTEIN NEGATIVE (NEGATIVE); URINE RBC 12 /uL (0-23.9); URINE UROBILINOGEN 0.2 mg/dL (0.2-1.0); URINE WBC 224 /uL (0-25.8)
[2019-09-20 19:26] LABS: BASO % 0.4 % (0-2.0); HEMOGLOBIN 11.2 GM/dL (10.7-15.3); LYMPH % 33.2 % (8-40); MCH 29.5 pg (25.7-33.7); MCHC 33.1 g/dl (32.0-36.0); MEAN CELL VOLUME 89.1 fl (80-96); MEAN PLT VOLUME 11.3 fl (7.5-11.1); MONO % 8.5 % (3.8-10.2); NEUT % 56.9 % (42.8-82.8); PLATELET COUNT 112 K/MM3 (134-434); RBC 3.81 M/mm3 (3.60-5.2); RDW 15.9 % (11.6-15.6)
--- NOTE | 2019-09-20 19:58 | PD.OB.PROG ---
Past Medical History - Primary Care Physician Documenting Provider Type: Attending (Dr burch) - Admission Chief Complaint: 29 yo EGA 37 + weeks send from doctor's office for PIH evaluation, r/o labor History of Present Illness: 29 yo EGA 37 + weeks send from doctor's office for PIH evaluation, r/o labor denies WATKINS, visual disturbances, epigastric pain History Source: Patient Limitations to Obtaining History: No Limitations Patient Type: Established - Nursing Documentation Maternal Triage Index: Maternal Triage Index ( Priority 4, Non-urgent MFTI) Nursing Documentation Reviewed: Yes - Past Medical History ...: 3 ...Para: 1 ...Term: 1 ...: 0 ...Spon : 0 ...Induced : 1 ...Living Children: 1 ...LMP: 01/10/20 ... Weeks Gestation by Dates: 36.2 ...EDC by Dates: 10/16/19 ...EDC by Sono: 10/06/19 Heme/Onc: Thrombocytopenia Infectious Disease: Denies/None Psych: Denies/None Musculoskeletal: Denies/None Rheumatology: Denies/None ENT: Denies/None Endocrine: Denies/None Dermatology: Denies/None - Past Surgical History Past Surgical History: Yes: None - Smoking History Smoking history: Never smoked Have you smoked in the past 12 months: No Aproximately how many cigarettes per day: 0 - Alcohol/Substance Use Hx Alcohol Use: No History of Substance Use: reports: None - Social History History of Recent Travel: No Review of Systems - Review of Systems Constitutional: reports: Weakness Eyes: reports: No Symptoms HENT: reports: No Symptoms Neck: reports: No Symptoms Cardiovascular: reports: No Symptoms Respiratory: reports: No Symptoms Gastrointestinal: reports: No Symptoms Genitourinary: reports: Pain Breasts: reports: No Symptoms Reported Musculoskeletal: reports: No Symptoms Integumentary: reports: No Symptoms Neurological: reports: No Symptoms Endocrine: reports: No Symptoms Hematology/Lymphatic: reports: No Symptoms Psychiatric: reports: No Symptoms Physical Exam - Obstetrical Vital Signs: Vital Signs Temperature 98.0 F 09/20/19 17:28 Pulse Rate 92 H 09/20/19 17:28 Respiratory Rate 18 09/20/19 17:28 Blood Pressure 146/94 08/11/20 17:28 O2 Sat by Pulse Oximetry (%) Constitutional: Yes: Well Nourished, Anxious Cardiovascular: Yes: WNL Lungs: Clear to auscultation Breast(s): Yes: WNL - Abdominal Exam/OB Fundal Height: 38 Number of Fetuses: Single Presentation: Vertex Contractions: Yes Regularity: Irregular Intensity: Mild Monitor Mode: External Heart Rate Location: [facility] Category: I Accelerations: Uniform Decelerations: None - Vaginal Exam/OB Vaginal Exam Deferred: No Dilatation (cm): 1 Effacement (%): 50 Amniotic Membrane Status: Intact Presentation: Vertex/Position Station: -3 - Physical Exam Musculoskeletal: Yes: WNL Edema: LLE: 1+, RLE: 1+ Deep Tendon Reflex Grade: Normal +2 ...Motor Strength: WNL Psychiatric: Yes: WNL - Labs Lab Results: CBC, BMP 09/20/19 19:20 Problem List - Problems (1) PIH ( induced hypertension) Code(s): O13.9 - GESTATIONAL HTN W/O SIGNIFICANT PROTEINURIA, UNSP TRIMESTER (2) 37 weeks gestation of Code(s): Z3A.37 - 37 WEEKS GESTATION OF (3) Thrombocytopenia Code(s): D69.6 - THROMBOCYTOPENIA, UNSPECIFIED Assessment/Plan continue observation
[2019-09-20 20:06] LABS: BILIRUBIN,TOTAL 0.9 mg/dL (0.2-1); BLOOD UREA NITROGEN 4.1 mg/dL (7-18); CALCIUM 8.1 mg/dL (8.5-10.1); CREATININE 0.5 mg/dL (0.55-1.3); POTASSIUM 3.8 mmol/L (3.5-5.1); TOT PROT 5.3 g/dl (6.4-8.2)
[2019-09-20 20:24] LABS: URIC ACID 5.2 mg/dL (2.6-7.2)
[2019-09-20] MEDS ORDERED: DINOPROSTONE 10 MG VAGINAL SUPPOSITORY VG ONE ×2 (22:00→23:13)
[2019-09-20 22:05] LABS: INR 0.97 (0.83-1.09); PROTHROMBIN TIME (PATIENT) 11.4 SEC (9.7-13.0)
[2019-09-20 22:08] LABS: ACTIVATED PTT 26.9 SECONDS (25.2-36.5)
[2019-09-20 22:49] VITALS: BMI 36.3
--- NOTE | 2019-09-20 23:09 | HP ---
Past Medical History - Admission History Source: Patient Limitations to Obtaining History: No Limitations - Past Medical History ...: 3 ...Para: 1 ...Term: 1 ...: 0 ...Spon : 0 ...Induced : 1 ...Living Children: 1 ...Multiple Gestation: 0 ...LMP: 01/09/19 ... Weeks Gestation by Dates: 36.0 ...EDC by Dates: 10/18/19 ...EDC by Sono: 10/06/19 - Past Surgical History Past Surgical History: Yes: None Hx Myomectomy: No Hx Transabdominal Cerclage: No - Smoking History Smoking history: Never smoked Have you smoked in the past 12 months: No Aproximately how many cigarettes per day: 0 - Alcohol/Substance Use Hx Alcohol Use: No History of Substance Use: reports: None - Social History History of Recent Travel: No Home Medications - Allergies Allergies/Adverse Reactions: Allergies Allergy/AdvReac Type Severity Reaction Status Date / Time No Known Allergies Allergy Verified 06/22/19 18:27 - Home Medications Home Medications: Ambulatory Orders Pnv No.95/Ferrous Fum/Folic AC [ Vitamin Tablet] 1 each PO DAILY MDD 1 06/22/19 Review of Systems - Review of Systems Constitutional: reports: No Symptoms Cardiovascular: reports: No Symptoms Respiratory: reports: No Symptoms Gastrointestinal: reports: No Symptoms Genitourinary: reports: No Symptoms Physical Exam - Maternity Vital Signs: Vital Signs Temperature 98.3 F 09/20/19 22:00 Pulse Rate 94 H 09/20/19 20:45 Respiratory Rate 20 09/20/19 20:45 Blood Pressure 128/80 09/20/19 20:45 O2 Sat by Pulse Oximetry (%) Cardiovascular: Yes: WNL Lungs: Clear to auscultation - Abdominal Exam/OB Fundal Height: 40 Number of Fetuses: Single Presentation: Vertex Contractions: Yes Regularity: Irregular Intensity: Mild Monitor Mode: External Heart Rate (range): 140 Category: I Accelerations: Uniform Decelerations: None - Vaginal Exam/OB Vaginal Bleeding: No Amniotic Membrane Status: Intact Presentation: Vertex/Position Station: -3 - Labs Lab Results: CBC, BMP 09/20/19 19:20 09/20/19 19:20 Problem List - Problems (1) 37 weeks gestation of Assessment/Plan: [id number]@ 37w5d, GBS positive,GDMA1, Elevated BP, Thrombocytopenia, uric acid 5.2, edema of hands and legs upto lower abdomen.R/OePreeclampsia US -ANNIE-13.5cm,EFW-3437gm BP-145/92, 141/89 Discussed about size of fetus EFW Clinical- 3800,could be increased amniotic fluid.possibility of complications as a result of LGA, also discussed about diabetes in , [place] -fluid in stomach, hydrocele. Discussed possibility of baby staying in NICU.Patient understands ,verbalised understanding. No perneal lesions, on valtrex per Dr Hess, started at 36 weeks. Admit to labor and delivery Labs IV Cervidil Informed consent, also discussed, patient desires trial of labor Ampicillin close monitoring Problems reviewed: Yes Code(s): Z3A.37 - 37 WEEKS GESTATION OF (2) PIH ( induced hypertension) Problems reviewed: Yes Code(s): O13.9 - GESTATIONAL HTN W/O SIGNIFICANT PROTEINURIA, UNSP TRIMESTER (3) Thrombocytopenia Problems reviewed: Yes Code(s): D69.6 - THROMBOCYTOPENIA, UNSPECIFIED
[2019-09-20] MEDS ORDERED: AMPICILLIN - 2 GM in SODIUM CHLORIDE 100 ML IVPB ONE (23:15)
[2019-09-20] MEDS ORDERED: AMPICILLIN SODIUM 2 GM VIAL ONE (23:16)
[2019-09-21] MEDS ORDERED: BUTORPHANOL TARTRATE 1 MG/ML VIAL IVPB ONE (00:45)
[2019-09-21] MEDS ORDERED: BUTORPHANOL TARTRATE 2 MG/ML VIAL ONE ×2 (00:48→09:30)
[2019-09-21] MEDS ORDERED: AMPICILLIN SODIUM 1 GM VIAL ONE ×4 (03:23→14:33)
[2019-09-21] MEDS: AMPICILLIN - 1 GM in SODIUM CHLORIDE 100 ML IVPB SCH ×5 (03:30→14:39)
[2019-09-21] MEDS ORDERED: SODIUM CHLORIDE 100 ML IVPB ONE ×3 (07:01→14:33)
[2019-09-21] MEDS ORDERED: BUTORPHANOL TARTRATE 2 MG/ML VIAL IVPB ONE (09:45)
[2019-09-21 10:06] LABS: BASO % 0.3 % (0-2.0); EOS % 1.1 % (0-4.5); HEMATOCRIT 33.8 % (32.4-45.2); HEMOGLOBIN 11.2 GM/dL (10.7-15.3); LYMPH % 30.2 % (8-40); MCH 29.7 pg (25.7-33.7); MCHC 33.2 g/dl (32.0-36.0); MEAN CELL VOLUME 89.4 fl (80-96); MEAN PLT VOLUME 11.4 fl (7.5-11.1); MONO % 8.4 % (3.8-10.2); PLATELET COUNT 111 K/MM3 (134-434); RBC 3.78 M/mm3 (3.60-5.2); RDW 15.7 % (11.6-15.6); WHITE BLOOD COUNT 8.9 K/mm3 (4.0-10.0)
[2019-09-21 10:41] LABS: BILIRUBIN,TOTAL 0.3 mg/dL (0.2-1); BLOOD UREA NITROGEN 4.2 mg/dL (7-18); CALCIUM 8.6 mg/dL (8.5-10.1); CREATININE 0.4 mg/dL (0.55-1.3); POTASSIUM 3.9 mmol/L (3.5-5.1); TOT PROT 5.2 g/dl (6.4-8.2)
[2019-09-21] MEDS ORDERED: FENTANYL/BUPIVACAINE/NS/PF - PCEA - 50 ML DISP.SYRIN EP ONE (11:54)
[2019-09-21] MEDS ORDERED: PCA PUMP NR ONE (11:54)
[2019-09-21] MEDS ORDERED: OXYTOCIN 30 UNITS in 0.9% NS 30 UNIT/500 ML INFUS.BAG IVPB SCH (12:00)
[2019-09-21] MEDS ORDERED: ELECTROLYTE-148 SOLN 500 ML IV ONE (12:01)
[2019-09-21] MEDS ORDERED: OXYTOCIN 30 UNITS in 0.9% NS 30 UNIT/500 ML INFUS.BAG IVPB ONE (12:13)
--- NOTE | 2019-09-21 12:16 | PN ---
Progress Note (short form) - Note Progress Note: Patient s/p stadol Awaiting epidural FHR-140, moderate variability, positive acceleration, no decelerations, cat1 [place]- q2-4 VE- 2cm/50%/-3 start pitocin Continue trial of labor Discussed plan with patient and family member Problem List - Problems (1) 37 weeks gestation of Code(s): Z3A.37 - 37 WEEKS GESTATION OF (2) PIH ( induced hypertension) Code(s): O13.9 - GESTATIONAL HTN W/O SIGNIFICANT PROTEINURIA, UNSP TRIMESTER (3) Thrombocytopenia Code(s): D69.6 - THROMBOCYTOPENIA, UNSPECIFIED
[2019-09-21] MEDS ORDERED: LIDO 2%/EPI 1:200000 PRESRVFRE (20 ML SDVIAL) ONE ×2 (12:32→17:30)
[2019-09-21] MEDS ORDERED: BUPIVACAINE HCL/PF 0.25% (2.5MG/ML) 10 ML VIAL ONE (12:32)
[2019-09-21] MEDS: FENTANYL/BUPIVACAINE/NS/PF - PCEA - 50 ML DISP.SYRIN EP SCH (12:50)
[2019-09-21] MEDS: ELECTROLYTE-148 SOLN 1,000 ML IV SCH ×2 (13:00→17:55)
[2019-09-21] MEDS ORDERED: NALOXONE HCL 0.4 MG/ML VIAL IVPUSH PRN (13:18)
--- NOTE | 2019-09-21 15:12 | PN ---
Progress Note (short form) - Note Progress Note: Patient on pitocin VE- no cervical change FHR- 140, moderate variability,positive acceleration, no decelerations [place]- q2-4 min s/p epidural continue trial of labor continue ampicillin Problem List - Problems (1) 37 weeks gestation of Code(s): Z3A.37 - 37 WEEKS GESTATION OF (2) PIH ( induced hypertension) Code(s): O13.9 - GESTATIONAL HTN W/O SIGNIFICANT PROTEINURIA, UNSP TRIMESTER (3) Thrombocytopenia Code(s): D69.6 - THROMBOCYTOPENIA, UNSPECIFIED
[2019-09-21] MEDS ORDERED: CITRIC ACID/SODIUM CITRATE 30 ML UNIT-DOSE CUP PO ONE (17:21)
[2019-09-21] MEDS ORDERED: ceFAZolin 2 GRAM PREMIX BAG IVPB ONE (17:22)
--- NOTE | 2019-09-21 17:28 | PN ---
Progress Note (short form) - Note Progress Note: Patient examined ,no cervical change. patient at this time desires csection, failed induction, proceed with surgery Preeclampsia with elevated with BP and thrombocytopenia,GDMA1. Prepare for surgery. Ancef Problem List - Problems (1) 37 weeks gestation of Code(s): Z3A.37 - 37 WEEKS GESTATION OF (2) PIH ( induced hypertension) Code(s): O13.9 - GESTATIONAL HTN W/O SIGNIFICANT PROTEINURIA, UNSP TRIMESTER (3) Thrombocytopenia Code(s): D69.6 - THROMBOCYTOPENIA, UNSPECIFIED
[2019-09-21] MEDS ORDERED: ceFAZolin SODIUM 1 GM VIAL ONE (17:36)
[2019-09-21] MEDS ORDERED: OXYTOCIN 20 UNITS in 0.9% NS 20 UNIT/1,000 ML INFUS.BAG IV ONE ×2 (17:36→19:15)
[2019-09-21] MEDS ORDERED: OXYTOCIN 10 UNITS/ML VIAL ONE ×2 (17:55→18:00)
[2019-09-21] MEDS ORDERED: morphine SULFATE/PF 0.5 MG/ML (2cc Syringe - QUVA) ONE ×3 (18:00)
[2019-09-21] MEDS ORDERED: MIDAZOLAM HCL 2 MG/2 ML SINGLE DOSE VIAL ONE (18:05)
[2019-09-21] MEDS ORDERED: ONDANSETRON 4 MG/2 ML VIAL IVPUSH PRN (18:15)
[2019-09-21] MEDS ORDERED: morphine SULFATE/PF 0.5 MG/ML (2cc Syringe - QUVA) EP ONE (18:15)
--- NOTE | 2019-09-21 18:36 | PN ---
Progress Note (short form) - Note Progress Note: I assisted Dr. Botello at the c/section for the entirety of the case.
[2019-09-21 18:52] LABS: CORD BASE EXCESS -4.5 mmol/L (0-2); CORD HCO3 23.3 mmHg (20-29); CORD PCO2 52.4 mmHg (30-78); CORD pH 7.265 (7.14-7.44)
[2019-09-21 18:55] LABS: CORD HCO3 23.3 mmHg (20-29); CORD pH 7.186 (7.14-7.44)
--- NOTE | 2019-09-21 19:02 | OP ---
Operative Note - Note: Operative Date: 09/21/19 Pre-Operative Diagnosis: IUP@37w6d, R/o preeclampsia, Hypertensive disorder in , GDMA1, Thrombocytopenia,failed induction Operation: Primary csection Findings: Baby boy 7,9 [id number] [id number] Post-Operative Diagnosis: Same as Pre-op Surgeon: Juliette Botello Railroad Detective: Roel Sims Anesthesia: Epidural Estimated Blood Loss (mls): 900 Operative Report Dictated: Yes
[2019-09-21] MEDS ORDERED: ACETAMINOPHEN 1000 MG/100 ML VIAL (NON FORMULARY) IVPB ONE (19:16)
[2019-09-21] MEDS ORDERED: ACETAMINOPHEN INJECTION 100 ML IVPB ONE (19:40)
[2019-09-22] MEDS: CEFAZOLIN 1 GM/D5W 1 GM/50 ML BAG IVPB SCH ×3 (01:14→17:44)
[2019-09-22] MEDS: ACETAMINOPHEN 1000 MG/100 ML VIAL (NON FORMULARY) IVPB PRN ×2 (05:40→10:02)
--- NOTE | 2019-09-22 08:34 | PN ---
Progress Note (short form) - Note Progress Note: Anesthesia postop note 29 y/o F s/p epidural for labor and for section, duramorph for post op pain POD#1 vss, aaox3, pain well controlled, sensory motor intact distally, no back pain, no other complaints. No anesthesia complications.
[2019-09-22 09:05] LABS: BASO % 0.3 % (0-2.0); EOS % 0.3 % (0-4.5); HEMATOCRIT 32.5 % (32.4-45.2); HEMOGLOBIN 10.6 GM/dL (10.7-15.3); LYMPH % 20.9 % (8-40); MCH 29.3 pg (25.7-33.7); MCHC 32.6 g/dl (32.0-36.0); MEAN PLT VOLUME 11.8 fl (7.5-11.1); MONO % 8.2 % (3.8-10.2); NEUT % 70.3 % (42.8-82.8); PLATELET COUNT 110 K/MM3 (134-434); RBC 3.62 M/mm3 (3.60-5.2); RDW 15.6 % (11.6-15.6); WHITE BLOOD COUNT 9.7 K/mm3 (4.0-10.0)
[2019-09-22] MEDS: PRENATAL VITAMINS W/ FOLIC ACID TABLET (FP) PO SCH (09:10)
[2019-09-22] MEDS ORDERED: valACYclovir HCL 500 MG TABLET (FP) PO SCH (10:00)
[2019-09-22] MEDS: oxyCODONE HCL 5 MG TABLET PO PRN ×2 (17:05→21:35)
[2019-09-22] MEDS: SIMETHICONE 80 MG TAB.CHEW (FP) PO PRN ×2 (17:06→21:34)
[2019-09-22] MEDS: ACETAMINOPHEN 325 MG TABLET (FP) PO PRN ×2 (17:06→21:34)
[2019-09-22] MEDS ORDERED: BISACODYL 10 MG SUPP.RECT RC PRN (19:10)
[2019-09-22] MEDS: DOCUSATE SODIUM 100 MG CAPSULE (FP) PO SCH (21:35)
[2019-09-22] MEDS: FENTANYL/BUPIVACAINE/NS/PF - PCEA - 50 ML DISP.SYRIN EP SCH (21:36)
[2019-09-22] MEDS: AMPICILLIN - 1 GM in SODIUM CHLORIDE 100 ML IVPB SCH (23:44)
[2019-09-23] MEDS: SIMETHICONE 80 MG TAB.CHEW (FP) PO PRN ×4 (04:20→22:03)
[2019-09-23] MEDS: ACETAMINOPHEN 325 MG TABLET (FP) PO PRN ×2 (04:20→08:41)
[2019-09-23] MEDS: IBUPROFEN 600 MG TABLET (FP) PO PRN ×4 (04:21→22:03)
[2019-09-23] MEDS: PRENATAL VITAMINS W/ FOLIC ACID TABLET (FP) PO SCH (10:15)
[2019-09-23] MEDS: DOCUSATE SODIUM 100 MG CAPSULE (FP) PO SCH ×2 (10:15→22:02)
[2019-09-23] MEDS: oxyCODONE HCL 5 MG TABLET PO PRN ×2 (16:42→22:03)
[2019-09-23] MEDS ORDERED: valACYclovir HCL 500 MG TABLET (FP) PO ONE (18:38)
--- NOTE | 2019-09-23 21:05 | PN ---
Post Progress Note Post Day: 2 Type of Delivery: Primary C/S Vital Signs: Vital Signs Temperature 98.2 F 09/23/19 09:00 Pulse Rate 96 H 09/23/19 09:00 Respiratory Rate 20 09/23/19 09:00 Blood Pressure 127/79 09/23/19 09:00 O2 Sat by Pulse Oximetry (%) 95 09/22/19 22:00 Breast Exam: Yes: Soft Uterus: Yes: Fundus Firm, Fundus below umbilicus, Non-tender Abdomen/GI: Yes: Abdomen soft, Tolerating PO Lochia: Yes: Rubra Lochia, amount: Small Extremities: Yes: Calves non-tender Activity: Ambulating - Labs Labs: CBC WBC 9.7 K/mm3 (4.0-10.0) 09/22/19 08:05 RBC 3.62 M/mm3 (3.60-5.2) 09/22/19 08:05 Hgb 10.6 GM/dL (10.7-15.3) L 09/22/19 08:05 Hct 32.5 % (32.4-45.2) 09/22/19 08:05 MCV 90.0 fl (80-96) 09/22/19 08:05 MCH 29.3 pg (25.7-33.7) 09/22/19 08:05 MCHC 32.6 g/dl (32.0-36.0) 09/22/19 08:05 RDW 15.6 % (11.6-15.6) 09/22/19 08:05 Plt Count 110 K/MM3 (134-434) L 09/22/19 08:05 MPV 11.8 fl (7.5-11.1) H 09/22/19 08:05 Absolute Neuts (auto) 6.8 K/mm3 (1.5-8.0) 09/22/19 08:05 Neutrophils % 70.3 % (42.8-82.8) 09/22/19 08:05 Lymphocytes % 20.9 % (8-40) D 09/22/19 08:05 Monocytes % 8.2 % (3.8-10.2) 09/22/19 08:05 Eosinophils % 0.3 % (0-4.5) 09/22/19 08:05 Basophils % 0.3 % (0-2.0) 09/22/19 08:05 Nucleated RBC % 0 % (0-0) 09/22/19 08:05 Assessment/Plan S/P delivery. pod #2, , passed flatus Continue management.
--- NOTE | 2019-09-23 21:09 | DS ---
Physical Exam-TRACK EQUIPMENT OPERATOR Vital Signs: Vital Signs Temperature 98.2 F 09/23/19 09:00 Pulse Rate 96 H 09/23/19 09:00 Respiratory Rate 20 09/23/19 09:00 Blood Pressure 127/79 09/23/19 09:00 O2 Sat by Pulse Oximetry (%) 95 09/22/19 22:00 Constitutional: Yes: Well Nourished Eyes: Yes: WNL, Occular Prosthesis Neck: Yes: WNL Cardiovascular: Yes: WNL, S3 Respiratory: Yes: WNL Gastrointestinal: Yes: WNL Renal/: Yes: WNL Pelvis: Yes: WNL External Genitalia: Yes: Normal Vaginal Exam: Yes: Normal Cervix: Yes: Normal Uterus: Yes: Normal Adnexa: Normal: Bilateral ....Post : Yes: Uterus firm, Slight lochia rubra Breast(s): Yes: WNL Musculoskeletal: Yes: WNL Extremities: Yes: WNL Edema: Yes Edema: LLE: 1+, RLE: 1+ Integumentary: Yes: WNL Wound/Incision: Yes: Clean/Dry, Well Approximated Neurological: Yes: WNL ...Motor Strength: WNL Psychiatric: Yes: WNL Labs: CBC, BMP 09/22/19 08:05 09/21/19 09:52 Delivery - Delivery Type of Anesthesia: Epidural Episiotomy/Laceration: None EBL (cc): 500 Delivery, Single - Stages of Labor Date 1st Stage Initiatied: 09/21/19 Time 1st Stage Initiated: 09:00 Date of Delivery: 09/21/19 Time of Delivery: 18:00 Time Placenta Delivered: 18:01 - Condition of Infant Fence Manufacture Supervisor/Edge Plugger Present: Yes Name: Shane Carrillo Infant Gender: Male Weight: 4.423 kg Total Hours ROM (Hrs/Mins): 0/01 - 1 Minute Total Score: 7 5 Minutes Total Score: 9 - [place] Feeding Plan Initial Plan: Elected not to breastfeed exclusively throughout hospitalization Discharge Summary Problems reviewed: Yes Reason For Visit: INDUCTION OF LABOR Current Active Problems 37 weeks gestation of (Acute) PIH ( induced hypertension) (Acute) Thrombocytopenia (Acute) Condition: Stable - Instructions Disposition: HOME - Home Medications Comprehensive Discharge Medication List: Ambulatory Orders Pnv No.95/Ferrous Fum/Folic AC [ Vitamin Tablet] 1 each PO DAILY MDD 1 06/22/19
[2019-09-24] MEDS: ACETAMINOPHEN 325 MG TABLET (FP) PO PRN ×2 (04:54→09:25)
[2019-09-24] MEDS: oxyCODONE HCL 5 MG TABLET PO PRN (04:54)
[2019-09-24] MEDS: SIMETHICONE 80 MG TAB.CHEW (FP) PO PRN (04:55)
[2019-09-24] MEDS: IBUPROFEN 600 MG TABLET (FP) PO PRN (09:26)
[2019-09-24 10:00] LABS: BASO % 0.1 % (0-2.0); EOS % 2.5 % (0-4.5); HEMATOCRIT 34.8 % (32.4-45.2); HEMOGLOBIN 11.6 GM/dL (10.7-15.3); LYMPH % 37.3 % (8-40); MCHC 33.2 g/dl (32.0-36.0); MEAN CELL VOLUME 90.5 fl (80-96); MEAN PLT VOLUME 11.3 fl (7.5-11.1); MONO % 5.8 % (3.8-10.2); NEUT % 54.3 % (42.8-82.8); PLATELET COUNT 135 K/MM3 (134-434); RBC 3.85 M/mm3 (3.60-5.2); RDW 15.7 % (11.6-15.6); WHITE BLOOD COUNT 6.9 K/mm3 (4.0-10.0)
[2019-09-24] MEDS: DOCUSATE SODIUM 100 MG CAPSULE (FP) PO SCH (10:23)
[2019-09-24] MEDS: PRENATAL VITAMINS W/ FOLIC ACID TABLET (FP) PO SCH (10:24)
[2019-09-24 10:43] VITALS: BP 140/89; PULSE 102; TEMP 97.9
--- NOTE | 2019-09-24 16:43 | PN ---
Post Progress Note Post Day: 3 Type of Delivery: Primary C/S Vital Signs: Vital Signs Temperature 97.9 F 09/24/19 10:41 Pulse Rate 102 H 09/24/19 10:41 Respiratory Rate 20 09/24/19 10:41 Blood Pressure 140/89 09/24/19 10:41 O2 Sat by Pulse Oximetry (%) 96 09/24/19 10:41 Breast Exam: Yes: Soft Uterus: Yes: Fundus Firm, Fundus below umbilicus, Non-tender Abdomen/GI: Yes: Abdomen soft, Tolerating PO Lochia: Yes: Rubra Extremities: Yes: Calves non-tender Activity: Ambulating - Labs Labs: CBC WBC 6.9 K/mm3 (4.0-10.0) 09/24/19 08:24 RBC 3.85 M/mm3 (3.60-5.2) 09/24/19 08:24 Hgb 11.6 GM/dL (10.7-15.3) 09/24/19 08:24 Hct 34.8 % (32.4-45.2) 09/24/19 08:24 MCV 90.5 fl (80-96) 09/24/19 08:24 MCH 30.0 pg (25.7-33.7) 09/24/19 08:24 MCHC 33.2 g/dl (32.0-36.0) 09/24/19 08:24 RDW 15.7 % (11.6-15.6) H 09/24/19 08:24 Plt Count 135 K/MM3 (134-434) D 09/24/19 08:24 MPV 11.3 fl (7.5-11.1) H 09/24/19 08:24 Absolute Neuts (auto) 3.7 K/mm3 (1.5-8.0) 09/24/19 08:24 Neutrophils % 54.3 % (42.8-82.8) D 09/24/19 08:24 Lymphocytes % 37.3 % (8-40) D 09/24/19 08:24 Monocytes % 5.8 % (3.8-10.2) 09/24/19 08:24 Eosinophils % 2.5 % (0-4.5) D 09/24/19 08:24 Basophils % 0.1 % (0-2.0) 09/24/19 08:24 Nucleated RBC % 0 % (0-0) 09/24/19 08:24 Assessment/Plan S/P delivery, pod # 3, stable Discharge home.
--- NOTE | 2019-09-26 17:12 | PATH ---
Surgical Pathology Report Patient Name: LAURA LAMB Med. Rec. #: [id number] /Age/Gender: 1990 (Age: 29) / F Account: [id number] Location: [facility] OBS/AGILE SCRUM COACH Taken: 09/21/2019 Received: 09/22/2019 Reported: 09/26/2019 Physicians: Juliette Botello M.D. Specimen(s) Received PLACENTA Clinical History , failed induction, primary Final Diagnosis PLACENTA, SECTION: 740 G THIRD TRIMESTER PLACENTA WITH TRIVASCULAR UMBILICAL CORD AND UNREMARKABLE PLACENTAL MEMBRANES. Electronically Signed Pennie Hallman M.D. Gross Description The specimen is received fresh labeled placenta and is a 740 gram, 25.5 x 21.0 x 2.4 cm. placenta with attached membranes and umbilical cord. The attached membranes are gunderson, translucent with focal opacities and insert marginally. The umbilical cord measures 25 cm. in length and averages 1.3 cm. in diameter. The cord inserts eccentrically, 6.5 cm. to the nearest margin. No true knots or strictures are identified. Cut surface of the umbilical cord reveals 3 vessels. The surface is woody-blue with minimal fibrin deposition and appropriate caliber vessels. The maternal surface is red-brown with focal defects. Sectioning reveals red-brown, spongy parenchyma. No lesions are identified. Vermin Exterminator sections are submitted in three cassettes as follows: 1- membrane rolls and umbilical cord; 2-3- full thickness sections of placenta. /09/23/2019 [facility]09/23/2019
--- NOTE | 2019-09-28 14:56 | OP ---
DATE OF OPERATION: DATE OF DICTATION: 09/28/2019 PREOPERATIVE DIAGNOSIS: Intrauterine at 37 weeks and 6 days, rule out preeclampsia; hypertensive disease in ; gestational diabetes A1; thrombocytopenia; failed induction. POSTOPERATIVE DIAGNOSIS: Intrauterine at 37 weeks and 6 days, rule out preeclampsia; hypertensive disease in ; gestational diabetes A1; thrombocytopenia; failed induction. SURGEON: Juliette Botello MD LABORATORY SAMPLER: Josh Hill MD ANESTHESIA: Spinal. COMPLICATIONS: None. INDICATION: [id number] patient presented to labor and delivery, sent by for evaluation and induction of labor. Patient was 37 weeks and 6 days, had gestational diabetes, thrombocytopenia, and hypertension in , with areas of minimal variability improved on hydration. On assessment of the baby, baby was large for gestational age, and at this time discussion was held about complication of large babies. Patient insisted on having a vaginal delivery, so trial of labor was discussed. FINDINGS: Baby boy in cephalic presentation. Apgars 7 and 9. Weight 9 pounds 12 ounces. Normal uterus, tubes, and ovaries. Patient was started for trial of induction, but at some point during intrapartum care, patient did not have cervical dilation, so patient failed induction, and was discussed with the patient. At this point, patient agreed for , and was performed. DESCRIPTION OF PROCEDURE: Patient was taken to the operating room where spinal anesthesia was found to be adequate. She was then prepped and draped in a normal sterile fashion in a dorsal supine position with a leftward tilt. A Pfannenstiel skin incision was made with the scalpel and carried through the underlying layer of fascia. Fascia was incised in the midline and incision extended laterally. Baby was in cephalic presentation and delivered atraumatically. After this, the superior aspect of the fascial incision was grasped with Jurgen clamp, elevated, and from the underlying rectus muscle. Attention was then turned towards the inferior aspect of the incision, which in a similar fashion was grasped, tented up, and from the underlying rectus muscle. Rectus muscles were then in the midline, peritoneum identified, tented up and entered with Metzenbaum scissors. Peritoneal incision was extended superiorly and inferiorly, with good visualization of bladder and bowel. Bladder blade was inserted, lower uterine segment identified, and incision made. A bladder flap was created prior to this. The bladder blade was removed, baby boy in cephalic presentation, and delivered atraumatically. Nose and mouth were suctioned, cord was clamped and cut, and baby was handed over to waiting tool tender. Cord gases were sent and cord blood was sent. Placenta was then removed manually and completely. Uterus was exteriorized and cleared of all clots and debris. Uterine incision was then repaired with 0 Vicryl in a running locked fashion. A second layer of interrupted stitches was obtained for excellent hemostasis. Uterus was then returned back into the abdomen, excellent hemostasis confirmed. The gutters were cleared of all clots and debris and hemostasis confirmed. Peritoneum was then closed with 1 Vicryl in a running fashion. Rectus muscle then reapproximated with 1 Vicryl with interrupted stitches. Fascia was then closed with 0 Vicryl in a running fashion. Subcutaneous tissue was closed with 2-0 plain. Skin was closed with miranda. Patient tolerated the procedure well. Sponge, lap, and needle counts were correct x2, and excellent hemostasis confirmed throughout the procedure. Ancef 2 g was given prior to surgery. Patient was then transferred to recovery room in stable condition. MD NICANOR JORDAN/[id number]
== END 2019-09-24 14:10 | disposition home or self-care (01) | DRG 540 ==
LOC: JDEL 16:12 → JLDR 20:45 → J3W 09-21 20:40
PROVIDERS: ADMIT Obstetrics & Gynecology; ATTEND Obstetrics & Gynecology
PROC: 3E0P7VZ Introduction of Hormone into Female Reproductive, Via Natural or Artificial Opening (ICD-10-PCS; 2019-09-20)
PROC: 10D00Z1 Extraction of Products of Conception, Low, Open Approach (ICD-10-PCS; principal; 2019-09-21)
PROC: 3E033VJ Introduction of Other Hormone into Peripheral Vein, Percutaneous Approach (ICD-10-PCS; 2019-09-21)
DX: O36.63X0 Maternal care for excessive fetal growth, third trimester, not applicable or unspecified (principal); Z3A.37 37 weeks gestation of pregnancy; Z37.0 Single live birth; O61.0 Failed medical induction of labor; O24.420 Gestational diabetes mellitus in childbirth, diet controlled; O99.824 Streptococcus B carrier state complicating childbirth; O13.4 Gestational [pregnancy-induced] hypertension without significant proteinuria, complicating childbirth; O98.32 Other infections with a predominantly sexual mode of transmission complicating childbirth; A60.00 Herpesviral infection of urogenital system, unspecified; O99.12 Other diseases of the blood and blood-forming organs and certain disorders involving the immune mechanism complicating childbirth; D69.6 Thrombocytopenia, unspecified
CPT/HCPCS: 36415; 36600; 59025; 76819-TC; 80053; 81003; 82803; 82962; 84550; 85025; 85610; 85730; 86780; 86850; 86900; 86901; 87389; 88307-TC; J0131; U0003

== ENCOUNTER 2019-09-28 15:57 | Observation (INO) | payer OTHER ==
[2019-09-28 17:06] LABS: BASO % 0.7 % (0-2.0); EOS % 3.3 % (0-4.5); HEMATOCRIT 31.3 % (32.4-45.2); HEMOGLOBIN 10.4 GM/dL (10.7-15.3); MCH 30.1 pg (25.7-33.7); MCHC 33.3 g/dl (32.0-36.0); MEAN CELL VOLUME 90.3 fl (80-96); MEAN PLT VOLUME 9.7 fl (7.5-11.1); MONO % 7.9 % (3.8-10.2); NEUT % 50.1 % (42.8-82.8); PLATELET COUNT 257 K/MM3 (134-434); RBC 3.47 M/mm3 (3.60-5.2); RDW 16.4 % (11.6-15.6); WHITE BLOOD COUNT 6.2 K/mm3 (4.0-10.0)
[2019-09-28 17:13] LABS: EPI CELLS 24 /uL (0-25.1); HYALINE CASTS 0 /uL (0-3.1); PH,URINE 6.5 (5.0-8.0); URINE APPEARANCE CLEAR; URINE BACTERIA 645 /uL (0-1359); URINE BILIRUBIN NEGATIVE (NEGATIVE); URINE COLOR YELLOW; URINE GLUCOSE (UA) NEGATIVE (NEGATIVE); URINE KETONE NEGATIVE (NEGATIVE); URINE LEUK ESTERASE 3+ (NEGATIVE); URINE NITRITE NEGATIVE (NEGATIVE); URINE PROTEIN NEGATIVE (NEGATIVE); URINE RBC 9 /uL (0-23.9); URINE WBC 78 /uL (0-25.8)
--- NOTE | 2019-09-28 17:15 | PDOC ---
History of Present Illness - General Chief Complaint: Edema Stated Complaint: SENT BY PCP Time Seen by Provider: 09/28/19 16:26 History Source: Patient - History of Present Illness Initial Comments: 09/28/19 19:16 Eyal - [phone] (cell) [address] Nam/Antonino Past History - Medical History Allergies/Adverse Reactions: Allergies Allergy/AdvReac Type Severity Reaction Status Date / Time No Known Allergies Allergy Verified 06/22/19 18:27 Home Medications: Ambulatory Orders Pnv No.95/Ferrous Fum/Folic AC [ Vitamin Tablet] 1 each PO DAILY MDD 1 06/22/19 Acetaminophen 500 mg PO QID PRN #30 tablet 09/23/19 Docusate Sodium [Colace] 100 mg PO BID #20 capsule 09/23/19 Ibuprofen 600 mg PO Q6H PRN #30 tablet 09/23/19 Valacyclovir HCl [Valtrex] 500 mg PO DAILY #30 tablet 09/23/19 Asthma: No Cancer: No Cardiac Disorders: No COPD: No Diabetes: Yes (GESTATIONAL) HTN: No Seizures: No Thyroid Disease: No - Reproductive History Is Patient Now?: No - Immunization History Immunization Up to Date: Yes - Psycho-Social/Smoking History Smoking Status: No Smoking History: Never smoked Have you smoked in the past 12 months: No Number of Cigarettes Smoked Daily: 0 - Substance Abuse Hx (Audit-C & DAST Scrn) How often the patient has a drink containing alcohol: Never Score: In Men: 4 or > Positive; In Women: 3 or > Positive: 0 Screen Result (Pos requires Nsg. Audit-10AR): Negative In the last yr the pt used illegal drug/Rx for NonMed reason: No Score: Yes response is considered Positive: 0 Screen Result (Positive result requires Nsg. DAST-10): Negative *Physical Exam - Vital Signs Last Vital Signs Temp Pulse Resp BP Pulse Ox 98.5 F 95 H 18 149/93 99 09/28/19 16:02 09/28/19 16:02 09/28/19 16:02 09/28/19 16:02 09/28/19 16:02 ED Treatment Course - LABORATORY CBC & Chemistry Diagram: 09/28/19 16:45 09/28/19 16:45 - ADDITIONAL ORDERS Additional order review: Laboratory Results 09/28/19 17:00 Urine Color Yellow Urine Appearance Clear Urine pH 6.5 Ur Specific Junior 1.010 Urine Protein Negative Urine Glucose (UA) Negative Urine Ketones Negative Urine Blood 1+ H Urine Nitrite Negative Urine Bilirubin Negative Urine Urobilinogen 1.0 Ur Leukocyte Esterase 3+ H Urine WBC (Auto) 78 Urine RBC (Auto) 9 Urine Casts (Auto) 0 U Epithel Cells (Auto) 24 Urine Bacteria (Auto) 645 09/28/19 16:45 RBC 3.47 L MCV 90.3 MCHC 33.3 RDW 16.4 H MPV 9.7 D Neutrophils % 50.1 Lymphocytes % 38.0 Monocytes % 7.9 Eosinophils % 3.3 Basophils % 0.7 D Discharge - Follow up/Referral Referrals: Ulices Montes [Primary Care Provider] - - Patient Discharge Instructions - Post Discharge Activity
--- NOTE | 2019-09-28 17:15 | PDOC ---
Documentation entered by Ruthy Durbin SCRIBE, acting as scribe for Alison Guardado MD. Alison Guardado MD: This documentation has been prepared by the radhaibeRamakrishna Ana, SCRIBE, under my direction and personally reviewed by me in its entirety. I confirm that the documentation accurately reflects all work, treatment, procedures, and medical decision making performed by me. Attending Attestation - Resident Resident Name: TonyWinston - ED Attending Attestation I have performed the following: I have examined & evaluated the patient, The case was reviewed & discussed with the resident, I agree w/resident's findings & plan, Exceptions are as noted - HPI HPI: 09/28/19 16:30 29 year old female with a significant past medical history of hypertension , questionable blood clot associated with last , here 1 week s/p c section for failure to progress, c/o sob and leg edema. mild headache. denies blurry vision. no cp . no change to urine. 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 Patient said she experienced a little SOB last night. leg swelling is bilateral. Patient denies: chest pain or any other related symptoms. Allergies: NKDA 09/28/19 18:31 09/28/19 19:47 - Physicial Exam PE: 09/28/19 19:49 awake alert lungs clear bilat heart rrr no mrg abd soft nt nd ext bilat pitting edema. 2 + dp /pt pulses bilat. - Medical Decision Making 09/28/19 19:50 29 yto one week post s/p c section midly elevated bp, sob, leg edema. differential cardiomyopathy from , dvt or pe, chf, eclempsia. plan labs hiit labs, ekg dopplers. focused Echo. echo no rv strain, no pericardial effusion, mild decrease in conractility. dopplers leg negative. us lung noted bilat b lines at bases, and smal plueral effusion. plan to admit. will consult ob/ laborer tree tapping due to borderline eclempsia, no proteinuria. Discharge - Discharge Information Problems reviewed: Yes Clinical Impression/Diagnosis: CHF (congestive heart failure) Qualifiers: Heart failure type: unspecified Heart failure chronicity: acute Qualified Code(s): I50.9 - Heart failure, unspecified Condition: Improved Disposition: HOME - Follow up/Referral - Patient Discharge Instructions - Post Discharge Activity
[2019-09-28 17:38] LABS: ALBUMIN 2.3 g/dl (3.4-5.0); ALK PHOS 191 U/L (45-117); ANION GAP 9 MMOL/L (8-16); BILIRUBIN,TOTAL 0.2 mg/dL (0.2-1); BLOOD UREA NITROGEN 12.4 mg/dL (7-18); CALCIUM 8.2 mg/dL (8.5-10.1); CHLORIDE 111 mmol/L (98-107); CO2 22 mmol/L (21-32); CREATININE 0.5 mg/dL (0.55-1.3); GLUCOSE,RANDOM 98 mg/dL (74-106); N-TERMINAL BNP 448.9 pg/ml (5-125); POTASSIUM 3.9 mmol/L (3.5-5.1); SGOT/AST 54 U/L (15-37); SGPT/ALT 72 U/L (13-61); SODIUM 142 mmol/L (136-145); TOT PROT 5.6 g/dl (6.4-8.2)
[2019-09-28] MEDS ORDERED: ACETAMINOPHEN 325 MG TABLET (FP) PO ONE (19:58)
[2019-09-28] MEDS ORDERED: ACETAMINOPHEN 325 MG TABLET (FP) ONE (20:04)
--- NOTE | 2019-09-28 20:12 | PDOC ---
*Physical Exam - Vital Signs Last Vital Signs Temp Pulse Resp BP Pulse Ox 97.3 F L 91 H 16 137/88 99 09/28/19 18:26 09/28/19 18:26 09/28/19 18:26 09/28/19 18:26 09/28/19 18:26 - Physical Exam 09/28/19 20:18 29 F s/p a week ago, came to the ED with ongoing legs swelling. Post Csection wasn't complicated with infection, but did have elevated BP per patient. Patient denies recent traveling, F/C/N/V/D. She endorses bilaterally legs swelling ever since the surgery. In addition, she has headache. Denies Dysuria, discharge, increase frequency, blood in stool . Obgyn: Ty Cole. PMHX: as in HPI PSHX: see below Meds: Allergies: None Tob: denies Etoh: denies Rec drugs: denies PCP: ROS GENERAL/CONSTITUTIONAL: No fever or chills. No weakness. HEAD, EYES, EARS, NOSE AND THROAT: No change in vision. No ear pain or discharge. No sore throat. CARDIOVASCULAR: No chest pain or shortness of breath RESPIRATORY: No cough, wheezing, or hemoptysis. GASTROINTESTINAL: No nausea, vomiting, diarrhea or constipation. GENITOURINARY: No dysuria, frequency, or change in urination. MUSCULOSKELETAL: +legs swelling or pain. No neck or back pain. SKIN: No rash NEUROLOGIC: + headache, no vertigo, loss of consciousness, or change in strength/sensation. ENDOCRINE: No increased thirst. No abnormal weight change HEMATOLOGIC/LYMPHATIC: No anemia, easy bleeding, or history of blood clots. ALLERGIC/IMMUNOLOGIC: No hives or skin allergy. PE BP 133/88 GENERAL: Awake, alert, and fully oriented, in no acute distress HEAD: No signs of trauma, normocephalic, atraumatic EYES: PERRLA, EOMI, sclera anicteric, conjunctiva clear ENT: Auricles normal inspection, hearing grossly normal, nares patent, oropharynx clear without exudates. Moist mucosa NECK: Normal ROM, supple, no lymphadenopathy, JVD, or masses LUNGS: No distress, speaks full sentences, clear to auscultation bilaterally HEART: Regular rate and rhythm, normal S1 and S2, no murmurs, rubs or gallops, peripheral pulses normal and equal bilaterally. ABDOMEN: Soft. normoactive bowel sounds. No masses. Abdominal tenderness. horizontal csection wound (no sign of injection). EXTREMITIES : Normal inspection, Normal range of motion, +bilateral legs pitting edema. No clubbing or cyanosis. NEUROLOGICAL: Cranial nerves II through XII grossly intact. Normal speech, normal gait, no focal sensorimotor deficits SKIN: Warm, Dry, normal turgor, no rashes or lesions noted 09/28/19 21:01 09/28/19 21:01 ED Treatment Course - LABORATORY CBC & Chemistry Diagram: 09/28/19 16:45 09/28/19 16:45 - ADDITIONAL ORDERS Additional order review: Laboratory Results 09/28/19 09/28/19 09/28/19 17:00 17:00 16:45 Sodium 142 Potassium 3.9 Chloride 111 H Carbon Dioxide 22 Anion Gap 9 BUN 12.4 Creatinine 0.5 L Est GFR (CKD-EPI)AfAm 149.47 Est GFR (CKD-EPI)NonAf 128.97 Random Glucose 98 Calcium 8.2 L Total Bilirubin 0.2 AST 54 H ALT 72 H Alkaline Phosphatase 191 H Troponin I < 0.02 B-Natriuretic Peptide 448.9 H Total Protein 5.6 L Albumin 2.3 L Urine Color Yellow Urine Appearance Clear Urine pH 6.5 Ur Specific [place] 1.010 Urine Protein Negative Urine Glucose (UA) Negative Urine Ketones Negative Urine Blood 1+ H Urine Nitrite Negative Urine Bilirubin Negative Urine Urobilinogen 1.0 Ur Leukocyte Esterase 3+ H Urine WBC (Auto) 78 Urine RBC (Auto) 9 Urine Casts (Auto) 0 U Epithel Cells (Auto) 24 Urine Bacteria (Auto) 645 Ur Random Creatinine 32.0 U Random Total Protein 11.3 Protein/Creatinin Ratio 0.4 09/28/19 16:45 RBC 3.47 L MCV 90.3 MCHC 33.3 RDW 16.4 H MPV 9.7 D Neutrophils % 50.1 Lymphocytes % 38.0 Monocytes % 7.9 Eosinophils % 3.3 Basophils % 0.7 D - Medications Given in the ED: ED Medications Discontinued Medications Generic Name Dose Route Start Last Admin Trade Name Freq PRN Reason Stop Dose Admin Acetaminophen 650 mg 09/28/19 19:58 09/28/19 20:06 Tylenol - PO 09/28/19 19:59 650 mg ONCE ONE Administration Medical Decision Making - Medical Decision Making 09/28/19 20:24 Signout was given by day team. Called Dr. Cole. He agreed that this is not preeclamsia ( BP is not super elevated, no protein in urine). Duplex is negative, Blood work showed elevated AST, ALT, alhphos. UA showed +leukoesteras, elevated WBC---> asxm bacteuria. Admit to hospitalist for myocadiopathy vs CHF (elevated BNP 448) MBMD sent. 09/28/19 20:26 09/28/19 20:31 09/28/19 21:[address] Lizama. Discharge - Discharge Information Problems reviewed: Yes Clinical Impression/Diagnosis: CHF (congestive heart failure) Qualifiers: Heart failure type: unspecified Heart failure chronicity: acute Qualified Code(s): I50.9 - Heart failure, unspecified Condition: Good - Admission Yes - Follow up/Referral Referrals: Ulices Montes [Primary Care Provider] - - Patient Discharge Instructions - Post Discharge Activity
--- NOTE | 2019-09-28 21:44 | HP ---
CHIEF COMPLAINT: PCP: HISTORY OF PRESENT ILLNESS: Patient is a 29 year old female with a significant past medical history of hypertension, questionable blood clot associated with last , now 1week post (C- section due to failure to progress). C- section was not complicated by infection, however, patient had elevated BP post . She is now complaining of SOB x 1 day with worsening of leg swelling x1 day but has had leg swelling for 7months now. SOB of breath is only on exertion, reduced at rest. She denies chest pain, hemoptysis, nausea, chills, diarrhea, dysuria, discharge, increase frequency or fresh or dark blood in stool . Patient states that she was not treated for hypertensive during . However, in prior pregancy, she said she had to see a chief solution architect and was on antihypertensives for a couple of months post ER course was notable for: (1) (2) (3) Recent Travel: None PAST SURGICAL HISTORY: : Social History: Smoking:None Alcohol:None Drugs: None Allergies No Known Allergies. Parity: HOME MEDICATIONS: Home Medications Medication Instructions Recorded Pnv No.95/Ferrous Fum/Folic AC 1 each PO DAILY MDD 1 06/22/19 [ Vitamin Tablet] Acetaminophen 500 mg PO QID PRN #30 tablet 09/23/19 Docusate Sodium [Colace] 100 mg PO BID #20 capsule 09/23/19 Ibuprofen 600 mg PO Q6H PRN #30 tablet 09/23/19 Valacyclovir HCl [Valtrex] 500 mg PO DAILY #30 tablet 09/23/19 REVIEW OF SYSTEMS: Negative except as in body of history FHx: Can't remember Vital Signs - 24 hr 09/28/19 09/28/19 16:02 18:26 Temperature 98.5 F 97.3 F L Pulse Rate 95 H Pulse Rate [ 91 H Left Radial] Respiratory 18 16 Rate Blood Pressure 149/93 Blood Pressure 137/88 [Right Arm] O2 Sat by Pulse 99 99 Oximetry (%) PHYSICAL EXAMINATION: GENERAL: Awake, alert, and fully oriented, in no acute distress. HEAD: Normal with no signs of trauma. NECK: Normal range of motion, supple without lymphadenopathy, JVD, or masses. LUNGS: Crackles on b/l lung bases. HEART: Regular rate and rhythm, S1 and S2 without murmur, rub or gallop. ABDOMEN: Mild tenderness at incision site, no erythema UPPER EXTREMITIES: 2+ pulses, warm, well-perfused. No cyanosis. No clubbing. No peripheral edema. LOWER EXTREMITIES: B/L pitting pedal edema up to knee PSYCHIATRIC: Cooperative. Good eye contact. Appropriate mood and affect. SKIN: Warm, normal turgor. Laboratory Results - last 24 hr 09/28/19 09/28/19 09/28/19 16:45 16:45 17:00 WBC 6.2 RBC 3.47 L Hgb 10.4 L Hct 31.3 L MCV 90.3 MCH 30.1 MCHC 33.3 RDW 16.4 H Plt Count 257 D MPV 9.7 D Absolute Neuts (auto) 3.1 Neutrophils % 50.1 Lymphocytes % 38.0 Monocytes % 7.9 Eosinophils % 3.3 Basophils % 0.7 D Nucleated RBC % 0 Sodium 142 Potassium 3.9 Chloride 111 H Carbon Dioxide 22 Anion Gap 9 BUN 12.4 Creatinine 0.5 L Est GFR (CKD-EPI)AfAm 149.47 Est GFR (CKD-EPI)NonAf 128.97 Random Glucose 98 Calcium 8.2 L Total Bilirubin 0.2 AST 54 H ALT 72 H Alkaline Phosphatase 191 H Troponin I < 0.02 B-Natriuretic Peptide 448.9 H Total Protein 5.6 L Albumin 2.3 L Urine Color Yellow Urine Appearance Clear Urine pH 6.5 Ur Specific [place] 1.010 Urine Protein Negative Urine Glucose (UA) Negative Urine Ketones Negative Urine Blood 1+ H Urine Nitrite Negative Urine Bilirubin Negative Urine Urobilinogen 1.0 Ur Leukocyte Esterase 3+ H Urine WBC (Auto) 78 Urine RBC (Auto) 9 Urine Casts (Auto) 0 U Epithel Cells (Auto) 24 Urine Bacteria (Auto) 645 Ur Random Creatinine U Random Total Protein Protein/Creatinin Ratio 09/28/19 17:00 WBC RBC Hgb Hct MCV MCH MCHC RDW Plt Count MPV Absolute Neuts (auto) Neutrophils % Lymphocytes % Monocytes % Eosinophils % Basophils % Nucleated RBC % Sodium Potassium Chloride Carbon Dioxide Anion Gap BUN Creatinine Est GFR (CKD-EPI)AfAm Est GFR (CKD-EPI)NonAf Random Glucose Calcium Total Bilirubin AST ALT Alkaline Phosphatase Troponin I B-Natriuretic Peptide Total Protein Albumin Urine Color Urine Appearance Urine pH Ur Specific [place] Urine Protein Urine Glucose (UA) Urine Ketones Urine Blood Urine Nitrite Urine Bilirubin Urine Urobilinogen Ur Leukocyte Esterase Urine WBC (Auto) Urine RBC (Auto) Urine Casts (Auto) U Epithel Cells (Auto) Urine Bacteria (Auto) Ur Random Creatinine 32.0 U Random Total Protein 11.3 Protein/Creatinin Ratio 0.4 ASSESSMENT/PLAN: POST CARDIOMYOPATHY Likely Dialated Cardiomyopathy: -New onet SOB -Worsening leg swelling -<1week post -serial cardiac enzymes and EKG -Metoprolol 12.5 stat then daily -Add low dose ACEi if BP is high. BP now 136/100 and 10mg daily ACEI given -ECHO -IV 40mg stat lasix given -Iv lasix 40 daily. Patient made 1500ml urine after stat lasix -strict intake-output -Daily weights. Limit allowed <3-4kg/24hrs -Cardiology consulted overnight over the phone. Agree with plan, Official consult in AM -BP monitoring hourly -Augmentin 875mg bid x5days -varnish remover consulted: -No preeclamsia -Abd US -Lipid profile, A1C and TSH stat Sodium restricted diet #POSSIBLE IRON DEFIENCY ANEMIA: -Reduced Hb and Hematocrit BUT MCV 90 -RDW >16 -F/U results of iron studies and treat as necessary #Asymptomatic bacteruria: -UA shows Abhijeet Esterase: 3+, Bacteria 645 Blood likely from SHOW - Augmentin 875mg b.d x 5 days #TRANSAMINITIS: -Continue to avoid alcohol #FEN: -Strict i/o chart -Continue to monitor Mg,Phos, CPK and replete prn -Sodium controlled diet #DISPOSITION: -Admit to tele -DVt ppx: Levonox 40mg -F/U all pending labs Family Medical History Family History: Unremarkable Visit type - Emergency Visit Emergency Visit: Yes ED Registration Date: 09/28/19 Care time: The patient presented to the Emergency Department on the above date and was hospitalized for further evaluation of their emergent condition. - New Patient This patient is new to me today: Yes Date on this admission: 09/28/19 - Critical Care Critical Care patient: No ATTENDING PHYSICIAN STATEMENT I saw and evaluated the patient. I reviewed the resident's note and discussed the case with the resident. I agree with the resident's findings and plan as documented. SUBJECTIVE: OBJECTIVE: ASSESSMENT AND PLAN:
[2019-09-28] MEDS ORDERED: metoPROLOL SUCCINATE 25 MG TAB.SR.24H (FP) ONE (22:38)
[2019-09-28] MEDS ORDERED: FUROSEMIDE 40 MG/4 ML INJECTABLE VIAL IVPUSH ONE (22:38)
[2019-09-28] MEDS: metoPROLOL SUCCINATE 25 MG TAB.SR.24H (FP) PO SCH (22:44)
[2019-09-28] MEDS ORDERED: FUROSEMIDE 40 MG/4 ML INJECTABLE VIAL ONE (22:45)
--- NOTE | 2019-09-28 22:56 | CONSULT ---
Consult - text type - Consultation Consultation Note: Pt receives care with [facility]; please refer to OP note from recent C/S for reference. Please consult the OB cotton baler for Chu Butcher MD
--- NOTE | 2019-09-28 23:56 | PN ---
<Sydney Poe - Last Filed: 09/29/19 00:34> Teaching Attending Note ATTENDING PHYSICIAN STATEMENT I saw and evaluated the patient. I reviewed the resident's note and discussed the case with the resident. I agree with the resident's findings and plan as documented. SUBJECTIVE: OBJECTIVE: ASSESSMENT AND PLAN: <EduardasunitaSarmad serrato - Last Filed: 09/29/19 06:53> Teaching Attending Note Name of Resident: Sydney Poe ATTENDING PHYSICIAN STATEMENT I saw and evaluated the patient. I reviewed the resident's note and discussed the case with the resident. I agree with the resident's findings and plan as documented. SUBJECTIVE: 29 years old F with Hx of HTN s/p c section - 1 week post presented to hospital with shortness of breath and LE edema. Shortness of breath is more exertional . Her exercise tolerance was decreased. She denies chest pain, nausea,vomiting,fever, dysuria, urgency or frequency, diarrhea, constipation OBJECTIVE: Last Vital Signs Temp Pulse Resp BP Pulse Ox 97.3 F L 91 H 16 137/88 99 09/28/19 18:26 09/28/19 18:26 09/28/19 18:26 09/28/19 18:26 09/28/19 18:26 General Appearance: obese, notb willian cute distress HEENT: positive: EOMI, SUSI, Normal ENT Inspection, Normal Voice Neck: positive: Trachea midline, Normal Thyroid Respiratory/Chest: positive: Lungs Clear b/l, no added sounds Cardiovascular: positive: Regular Rhythm, Regular Rate, S1, S2, No MRG Gastrointestinal/Abdominal: positive: Normal Bowel Sounds, Flat, Soft Musculoskeletal: positive:peripheral pulses 2+, pitting edema b/l LE Integumentary: positive: Normal Color, Dry, Warm Neurologic: positive: hay rake operator II-XII NML intact, A&ox3, no focal neurologic deficit ASSESSMENT AND PLAN: Suspected cardiomyopathy with Acute CHF Asymptomatic bacteruria Transaminitis Admit to tele serial cardiac enzymes and EKG metoprolol 12.5 daily and lisinopril 10 mg daily. Adjust as per BP recordings and ECHO findings ECHO Iv lasix 40 daily include now strict intake output daily weights cardiology consulted overnight over the phone. Agree with plan, Official consult in AM mg,phos CPK BP and hr MONITORING Augmentin short course DVt ppx artificial snow making machine operator is on board. no preeclamsia Abd US discussed with staff in details Discussed plan with MOTORCOACH OPERATOR attending regional agronomist over the phone
[2019-09-29 02:20] LABS: CHOLESTEROL 161 mg/dL (50-200); HDL CHOLESTEROL 46 mg/dL (40-60); LDL CHOLESTEROL (ONLY SJRH) 84 mg/dL (5-100); TRIGLYCERIDES 243 mg/dL (0-150)
[2019-09-29] MEDS ORDERED: SIMETHICONE 40 MG/0.6 ML BOTTLE PO PRN (03:49)
[2019-09-29 04:02] VITALS: BMI 32.5
[2019-09-29] MEDS ORDERED: PT OWN MED DRAWER 7, Y5N ONE (06:38)
[2019-09-29 07:22] LABS: BASO % 0.5 % (0-2.0); EOS % 3.6 % (0-4.5); HEMATOCRIT 31.9 % (32.4-45.2); HEMOGLOBIN 10.6 GM/dL (10.7-15.3); LYMPH % 34.6 % (8-40); MCH 29.8 pg (25.7-33.7); MCHC 33.3 g/dl (32.0-36.0); MEAN CELL VOLUME 89.6 fl (80-96); MEAN PLT VOLUME 9.7 fl (7.5-11.1); NEUT % 52.3 % (42.8-82.8); PLATELET COUNT 261 K/MM3 (134-434); RBC 3.56 M/mm3 (3.60-5.2); WHITE BLOOD COUNT 5.8 K/mm3 (4.0-10.0)
[2019-09-29 07:50] LABS: ALBUMIN 2.4 g/dl (3.4-5.0); BLOOD UREA NITROGEN 9.3 mg/dL (7-18); CALCIUM 8.1 mg/dL (8.5-10.1); CREATININE 0.4 mg/dL (0.55-1.3); MAGNESIUM 1.9 mg/dL (1.8-2.4); PHOSPHOROUS 4.7 mg/dL (2.5-4.9); POTASSIUM 3.9 mmol/L (3.5-5.1); TOT PROT 5.7 g/dl (6.4-8.2)
[2019-09-29 07:58] LABS: BILIRUBIN,TOTAL 0.3 mg/dL (0.2-1)
[2019-09-29] MEDS: AMOX TR/POT CLAV 875MG/125MG TABLETS (FP) PO SCH ×2 (08:45→17:00)
--- NOTE | 2019-09-29 09:25 | PN ---
Physical Exam: SUBJECTIVE: Patient seen and examined at bedside. c/o increasing BL LE swelling and BL feet pain, pt also endorsing moist non-productive cough, denies chest pain, lightheadedness, dizziness, palpitations, SOB. OBJECTIVE: This is a 29 y.o. female 1 week post- ( on 09/21/2019) with hx of HTN and questionable blood clot after last in 2011 who presented to the ED c/o SOB, BL LE edema, and dyspnea on exertion. Pt states after her first , she was found to have hypertension and was s tarted on antihypertensives for a few months. Pt also reports she received antihypertensives during her hospital stay after this recent delivery for elevated BP. Pt denies prior episodes, chest pain, nausea, vomiting, dizziness, lightheadedness, productive cough, changes in bladder/bowel habits, urgency, burning, frequency. In the ED pt was found to be mildly hypertensive, bedside echo showed no rv strain, no pericardial effusion, and mild decrease in contractility. Abd US 09/28/19 = small BL pleural effusions, small amount ascites, and prominent hepatic veins possibly from fluid overload UA 3+ leuks, neg protein Vascular Study neg for DVT B/L Vital Signs Period Temp Pulse Resp BP Sys/Sanders Pulse Ox Last 24 Hr 97.3 F-98.5 F 74-95 16-20 103-149/58-99 96-100 GENERAL: The patient is awake, alert, and fully oriented, in no acute distress. HEAD: Normal with no signs of trauma. EYES: PERRL, extraocular movements intact, sclera anicteric, conjunctiva clear. No ptosis. ENT: Ears normal, nares patent, oropharynx clear without exudates, moist mucous membranes. NECK: Trachea midline, full range of motion, supple. LUNGS: +moist non-productive cough, breath sounds equal, clear to auscultation bilaterally, no wheezes, no crackles, no accessory muscle use. HEART: Regular rate and rhythm, S1, S2 without murmur, rub or gallop. ABDOMEN: Soft, tender at incision site, nondistended, normoactive bowel sounds, no guarding, no rebound, no hepatosplenomegaly, no masses. EXTREMITIES: BL LE non-pitting edema from feet to knees, no upper extremity edema, all extremities warm, dry, 2+ BL radial pulses, cap refill <3sec BL upper and lower extremities NEUROLOGICAL: Cranial nerves II through XII grossly intact. Normal speech, gait not observed. PSYCH: Normal mood, normal affect. SKIN: lower abdomen incision clean, dry, intact, warm, dry, normal turgor, no rashes or lesions noted Laboratory Results - last 24 hr 09/28/19 09/28/19 09/28/19 16:45 16:45 17:00 WBC 6.2 RBC 3.47 L Hgb 10.4 L Hct 31.3 L MCV 90.3 MCH 30.1 MCHC 33.3 RDW 16.4 H Plt Count 257 D MPV 9.7 D Absolute Neuts (auto) 3.1 Neutrophils % 50.1 Lymphocytes % 38.0 Monocytes % 7.9 Eosinophils % 3.3 Basophils % 0.7 D Nucleated RBC % 0 Retic Count Sodium 142 Potassium 3.9 Chloride 111 H Carbon Dioxide 22 Anion Gap 9 BUN 12.4 Creatinine 0.5 L Est GFR (CKD-EPI)AfAm 149.47 Est GFR (CKD-EPI)NonAf 128.97 Random Glucose 98 Hemoglobin A1c % Calcium 8.2 L Phosphorus Magnesium Iron TIBC Iron Saturation Unsaturated IBC Ferritin Total Bilirubin 0.2 AST 54 H ALT 72 H Alkaline Phosphatase 191 H Troponin I < 0.02 B-Natriuretic Peptide 448.9 H Total Protein 5.6 L Albumin 2.3 L Triglycerides 243 H Cholesterol 161 Total LDL Cholesterol 84 HDL Cholesterol 46 Lipase TSH 2.50 Urine Color Yellow Urine Appearance Clear Urine pH 6.5 Ur Specific [place] 1.010 Urine Protein Negative Urine Glucose (UA) Negative Urine Ketones Negative Urine Blood 1+ H Urine Nitrite Negative Urine Bilirubin Negative Urine Urobilinogen 1.0 Ur Leukocyte Esterase 3+ H Urine WBC (Auto) 78 Urine RBC (Auto) 9 Urine Casts (Auto) 0 U Epithel Cells (Auto) 24 Urine Bacteria (Auto) 645 Ur Random Creatinine U Random Total Protein Protein/Creatinin Ratio 09/28/19 09/29/19 09/29/19 17:00 01:20 06:27 WBC 5.8 RBC 3.56 L Hgb 10.6 L Hct 31.9 L MCV 89.6 MCH 29.8 MCHC 33.3 RDW 16.0 H Plt Count 261 MPV 9.7 Absolute Neuts (auto) 3.0 Neutrophils % 52.3 Lymphocytes % 34.6 Monocytes % 9.0 Eosinophils % 3.6 Basophils % 0.5 Nucleated RBC % 0 Retic Count Sodium Potassium Chloride Carbon Dioxide Anion Gap BUN Creatinine Est GFR (CKD-EPI)AfAm Est GFR (CKD-EPI)NonAf Random Glucose Hemoglobin A1c % 6.5 H Calcium Phosphorus Magnesium Iron TIBC Iron Saturation Unsaturated IBC Ferritin Total Bilirubin AST ALT Alkaline Phosphatase Troponin I B-Natriuretic Peptide Total Protein Albumin Triglycerides Cholesterol Total LDL Cholesterol HDL Cholesterol Lipase TSH Urine Color Urine Appearance Urine pH Ur Specific [place] Urine Protein Urine Glucose (UA) Urine Ketones Urine Blood Urine Nitrite Urine Bilirubin Urine Urobilinogen Ur Leukocyte Esterase Urine WBC (Auto) Urine RBC (Auto) Urine Casts (Auto) U Epithel Cells (Auto) Urine Bacteria (Auto) Ur Random Creatinine 32.0 U Random Total Protein 11.3 Protein/Creatinin Ratio 0.4 09/29/19 09/29/19 06:27 06:27 WBC RBC Hgb Hct MCV MCH MCHC RDW Plt Count MPV Absolute Neuts (auto) Neutrophils % Lymphocytes % Monocytes % Eosinophils % Basophils % Nucleated RBC % Retic Count Cancelled Sodium 141 Potassium 3.9 Chloride 108 H Carbon Dioxide 24 Anion Gap 9 BUN 9.3 Creatinine 0.4 L Est GFR (CKD-EPI)AfAm 160.86 Est GFR (CKD-EPI)NonAf 138.79 Random Glucose 92 Hemoglobin A1c % Calcium 8.1 L Phosphorus 4.7 Magnesium 1.9 Iron 36 L TIBC 415 Iron Saturation 8 L Unsaturated IBC 379 H Ferritin 60.0 Total Bilirubin 0.3 AST 48 H ALT 66 H Alkaline Phosphatase 191 H Troponin I B-Natriuretic Peptide Total Protein 5.7 L Albumin 2.4 L Triglycerides Cholesterol Total LDL Cholesterol HDL Cholesterol Lipase 79 TSH Cancelled Urine Color Urine Appearance Urine pH Ur Specific [place] Urine Protein Urine Glucose (UA) Urine Ketones Urine Blood Urine Nitrite Urine Bilirubin Urine Urobilinogen Ur Leukocyte Esterase Urine WBC (Auto) Urine RBC (Auto) Urine Casts (Auto) U Epithel Cells (Auto) Urine Bacteria (Auto) Ur Random Creatinine U Random Total Protein Protein/Creatinin Ratio Active Medications Generic Name Dose Route Start Last Admin Trade Name Freq PRN Reason Stop Dose Admin Acetaminophen 650 mg 09/29/19 09:08 Tylenol - PO Q6H PRN PAIN LEVEL 6-10 Amoxicillin/Clavulanate Potassium 1 tab 09/29/19 08:00 Augmentin - 875mg Tablet PO BID@0800,1730 [facility] Enoxaparin Sodium 40 mg 09/29/19 10:00 Lovenox - SQ DAILY JEROD Furosemide 40 mg 09/29/19 10:00 Lasix Injection - IVPUSH DAILY JEROD Lisinopril 10 mg 09/29/19 10:00 Prinivil PO DAILY JEROD Metoprolol Succinate 12.5 mg 09/28/19 22:00 09/28/19 22:44 Toprol Xl - PO 12.5 mg DAILY JEROD Administration Non-Formulary Medication 1 tab 09/29/19 10:00 95/Iron Fum/Folic/Dha [ + Dha Combo Pack] PO DAILY JEROD Simethicone 40 mg 09/29/19 03:49 09/29/19 06:31 Mylicon Liquid - PO 40 mg QID PRN Administration INDIGESTION ASSESSMENT/PLAN: 29 yr old female with hx of HTN, questionable blood clot in past after first , 1-week post ( on 09/21/2019) presenting with likely post- cardiomyopathy and asymptomatic bacteuria see problem list Diet: sodium controlled diet Activity: oob as tolerated, PT ordered Problem List - Problems (1) cardiomyopathy Assessment/Plan: BL LE non-pitting edema, vascular study (-) DVT echo ordered for today (right ventricle is normal, +mild to moderate MR, mild tricuspid regurgitation) seen by cardiology on lasix 40mg daily - continue for now will f/u with cardiology re: home lasix monitor daily weights close cardiology follow up when discharged Problems reviewed: Yes Code(s): O90.3 - PERIPARTUM CARDIOMYOPATHY (2) Asymptomatic bacteriuria, Assessment/Plan: UA 3+ leuks continue augmentin PO x5 days Problems reviewed: Yes Code(s): O99.89 - OTH DISEASES AND CONDITIONS COMPL PREG/CHLDBRTH; R82.71 - BACTERIURIA (3) Transaminitis Assessment/Plan: trending down monitor daily Abd US negative for acute hepatic pathology Code(s): R74.0 - NONSPEC ELEV OF LEVELS OF TRANSAMNS & LACTIC ACID DEHYDRGNSE (4) Iron deficiency anemia Code(s): D50.9 - IRON DEFICIENCY ANEMIA, UNSPECIFIED (5) Hypertension, condition or complication Assessment/Plan: discussed with Dr. Hess - pt does not have hx of HTN and does need feel pt is pre-eclamptic pt presented to ED with high BP controlled on lisinopril 10mg daily and toprol 12.5 mg daily monitor vital signs f/u with chicken stuffer and PCP after DC to determine if pt needs to continue antihypertensives, continue for now Code(s): O16.5 - UNSPECIFIED MATERNAL HYPERTENSION, COMP THE PUERPERIUM (6) Gestational diabetes mellitus Assessment/Plan: hgb a1c 6.5 pt reports hx of gestational diabetes reports checking blood sugar twice at home daily check bgm ac/hs surveillance officer consult f/u after DC for repeat hgb a1c Code(s): O24.419 - GESTATIONAL DIABETES MELLITUS IN , UNSP CONTROL (7) Shortness of breath on exertion Assessment/Plan: check d-dimer if elevated or if echo shows right heart strain, order cta Code(s): R06.02 - SHORTNESS OF BREATH (8) Prophylactic use of low molecular weight heparin for venous thromboembolism Assessment/Plan: VTE prophylaxis = Lovenox 40mg SQ daily Code(s): Z79.01 - PENITENTIARY (CURRENT) USE OF ANTICOAGULANTS Visit type - Emergency Visit Emergency Visit: Yes ED Registration Date: 09/28/19 Care time: The patient presented to the Emergency Department on the above date and was hospitalized for further evaluation of their emergent condition. - New Patient This patient is new to me today: Yes Date on this admission: 09/29/19 - Critical Care Critical Care patient: No - Discharge Referral Referred to [facility] No
[2019-09-29] MEDS ORDERED: HYDROCHLOROTHIAZIDE 12.5 MG CAPSULE (FP) PO SCH (10:00)
--- NOTE | 2019-09-29 10:16 | CON.CARD ---
Consult Consult Specialty:: Cardiology Referred by:: carole Reason for Consultation:: SOB, edema - History of Present Illness Chief Complaint: sob edema History of Present Illness: 29 year old woman with history of HTN during s/p c section - 1 week post who was admitted with shortness of breath on exertion and LE edema that has been worsening since DC. No chest pain, orthopnea, pnd. No palpitations, dizziness or syncope. ECG is normal duplex was negative for DVT. TnI negative. abd ultrasound showed ascites and pleural effusions. - History Source History Provided By: Patient, Medical Record - Past Medical History ...LMP: 10/07/18 ...: No - Past Surgical History Past Surgical History: Yes: None - Alcohol/Substance Use Hx Alcohol Use: No History of Substance Use: reports: None - Smoking History Smoking history: Never smoked Have you smoked in the past 12 months: No Aproximately how many cigarettes per day: 0 - Social History History of Recent Travel: No Home Medications - Allergies Allergies/Adverse Reactions: Allergies Allergy/AdvReac Type Severity Reaction Status Date / Time No Known Allergies Allergy Verified 09/28/19 23:34 - Home Medications Home Medications: Ambulatory Orders Acetaminophen [Pain Reliever] 500 mg PO QID PRN 09/29/19 Docusate Sodium [Colace] 100 mg PO 09/29/19 Ibuprofen 600 mg PO Q6H PRN 09/29/19 95/Iron Fum/Folic/Dha [ + Dha Combo Pack] 1 tab PO DAILY 09/29/19 Valacyclovir HCl [Valacyclovir] 500 mg PO DAILY 09/29/19 Vital Signs: Vital Signs Temperature 98.1 F 09/29/19 06:00 Pulse Rate 92 H 09/29/19 06:00 Respiratory Rate 20 09/29/19 06:00 Blood Pressure 103/58 L 09/29/19 06:00 O2 Sat by Pulse Oximetry (%) 96 09/29/19 06:00 Constitutional: Yes: No Distress, Calm Eyes: Yes: EOM Intact HENT: Yes: Atraumatic, Normocephalic Neck: Yes: Trachea Midline Respiratory: Yes: Dullness (bilat bases), Rales (bilat bases) Gastrointestinal: Yes: Normal Bowel Sounds, Soft Cardiovascular: Yes: Regular Rate and Rhythm JVD: Yes Carotid Bruit: No PMI: Non-Displaced Heart Sounds: Yes: S1, S2 Musculoskeletal: Yes: WNL Extremities: Yes: WNL Edema: Yes Edema: LLE: 2+, RLE: 2+ Peripheral Pulses WNL: Yes - Other Data Labs, Other Data: CBC, BMP 09/29/19 06:27 09/29/19 06:27 Troponin, BNP 09/28/19 16:45 Troponin I < 0.02 B-Natriuretic Peptide 448.9 H Troponin, BNP 09/28/19 16:45 Troponin I < 0.02 B-Natriuretic Peptide 448.9 H Imaging - Results Chest X-ray: Report Reviewed (mild chf) EKG: Report Reviewed (normal ecg) Assessment/Plan 29 year old woman with history of HTN during s/p c section - 1 week post who was admitted with shortness of breath on exertion and LE edema that has been worsening since DC. No chest pain, orthopnea, pnd. No palpitations, dizziness or syncope. ECG is normal duplex was negative for DVT. TnI negative. abd ultrasound showed ascites and pleural effusions. bnp elevated IMP: -rule out peripartum cardiomyopathy -continue IV lasix. -follow BNP and transaminases -echo -will follow with you.
[2019-09-29] MEDS: LISINOPRIL 10 MG TABLET (FP) PO SCH (10:20)
[2019-09-29] MEDS: metoPROLOL SUCCINATE 25 MG TAB.SR.24H (FP) PO SCH (10:20)
[2019-09-29] MEDS: FUROSEMIDE 40 MG/4 ML INJECTABLE VIAL IVPUSH SCH (10:21)
[2019-09-29] MEDS: ENOXAPARIN NA (PORCINE) 40 MG/0.4 ML DISP.SYRIN SQ SCH (10:23)
--- NOTE | 2019-09-29 11:41 | PN ---
Progress Note (short form) - Note Progress Note: S/P delivery, pod # 8, with complain of pains in both lower limbs and groin. History of gestational diabetes on during . No history of hypertension as stated in the History and physical. Presently working diagnosis of cardiomyopathy, VSS, afebrile Pelvis - Wound with seristrips and dry Extremeties - Edema ++, pulses + Plan - cardiomyopathy to exclude other obstetric complications Continue management as per medicine and cardiology.
[2019-09-29 11:46] LABS: RETICULOCYTES 2.65 % (0.5-1.5)
[2019-09-29] MEDS: PRENATAL VITAMINS W/ FOLIC ACID TABLET (FP) PO SCH (11:47)
--- NOTE | 2019-09-29 13:20 | ECHO ---
Name: LAURA LAMB Exam:Adult Echocardiogram Study Date: 09/29/2019 10:52 AM Age: 29 yrs Reason For Study: sob bilateral leg sweling post MMode/2D Measurements & Calculations IVSd: 0.94 cm Ao root diam: 2.6 cm LVIDd: 4.8 cm LA dimension: 3.9 cm LVIDs: 2.9 cm LVPWd: 1.0 cm LVPWs: 1.4 cm EDV(Teich): 108.6 ml ESV(Teich): 33.3 ml LVOT diam: 1.9 cm LAV (MOD-bp): 84.0 ml RV S Jason: 14.5 cm/sec Doppler Measurements & Calculations MV E max jason: 111.1 cm/sec Ao V2 max: 144.8 cm/sec MV A max jason: 44.4 cm/sec Ao max P.4 mmHg MV E/A: 2.5 DESIREE(V,D): 2.3 cm2 MV dec time: 0.11 sec LV V1 max P.9 mmHg MR max jason: 356.8 cm/sec LV V1 max: 111.1 cm/sec MR max P.1 mmHg TR max jason: 270.7 cm/sec PA V2 max: 89.6 cm/sec TR max P.4 mmHg PA max P.2 mmHg Med Peak E' Jason: 8.6 cm/sec Pulm Sys Jason: 55.6 cm/sec Med E/e': 13.0 Pulm Sanders Jason: 39.2 cm/sec Lat Peak E' Jason: 11.4 cm/sec Pulm S/D: 1.4 Lat E/e': 9.7 Procedure A complete two-dimensional transthoracic echocardiogram was performed (2D, M-mode, Doppler and color flow Doppler). Left Ventricle The left ventricular size, thickness and function are normal. Ejection Fraction = 60-65%. The left ve ntricular wall motion is normal. Right Ventricle The right ventricle is normal in size and function. Atria Normal left and right atrial size and function. Mitral Valve There is mild to moderate mitral regurgitation. Tricuspid Valve There is mild tricuspid regurgitation. Right ventricular systolic pressure is normal. Aortic Valve The aortic valve is trileaflet. No hemodynamically significant valvular aortic stenosis. No aortic regurgitation is present. Pulmonic Valve There is no pulmonic valvular regurgitation. Great Vessels The aortic root is normal size. Pericardium/Pleura There is no pericardial effusion. Interpretation Summary The left ventricular size, thickness and function are normal The right ventricle is normal in size and function. There is mild to moderate mitral regurgitation. There is mild tricuspid regurgitation. MD Juanpablo Malik 09/29/2019 01:20 PM
--- NOTE | 2019-09-29 15:43 | CON.PULM ---
Consult Consult Specialty:: PULM/CCM Referred by:: Hospitalist Reason for Consultation:: Pleural effusion - History of Present Illness Chief Complaint: SOB History of Present Illness: 29 F, past medical history of HTN during . No other medical issues. S/P C section 1 week ago. Developed bilateral LE edema, orthopnea, and shortness of breath on exertion. No fever or chills. No COVID19 contacts. No CP. No hemoptysis. CXR: Pulmonary vascular congestion and pleural effusion. Dupplex was negative for DVT. Abdominal ultrasound: ascites and pleural effusions. No personal or family history of VTE. - History Source History Provided By: Patient Limitations to Obtaining History: No Limitations - Past Medical History Pulmonary: No: Asthma, Bronchitis, Cancer, COPD, O2 Dependent, Pneumonia, Previously Intubated, Pulmonary Embolus, Pulmonary Fibrosis, Sleep Apnea ...LMP: 10/07/18 ...: No - Past Surgical History Past Surgical History: Yes: None - Alcohol/Substance Use Hx Alcohol Use: No History of Substance Use: reports: None - Smoking History Smoking history: Never smoked Have you smoked in the past 12 months: No Aproximately how many cigarettes per day: 0 - Social History History of Recent Travel: No Home Medications - Allergies Allergies/Adverse Reactions: Allergies Allergy/AdvReac Type Severity Reaction Status Date / Time No Known Allergies Allergy Verified 09/28/19 23:34 - Home Medications Home Medications: Ambulatory Orders Acetaminophen [Pain Reliever] 500 mg PO QID PRN 09/29/19 Docusate Sodium [Colace] 100 mg PO 09/29/19 Ibuprofen 600 mg PO Q6H PRN 09/29/19 95/Iron Fum/Folic/Dha [ + Dha Combo Pack] 1 tab PO DAILY 09/29/19 Valacyclovir HCl [Valacyclovir] 500 mg PO DAILY 09/29/19 Review of Systems - Review of Systems Constitutional: denies: Chills, Fever, Night Sweats, Unintentional Wgt. Loss Eyes: reports: No Symptoms HENT: reports: No Symptoms Neck: reports: No Symptoms Cardiovascular: reports: Edema, Shortness of Breath. denies: Chest Pain, Palpitations Respiratory: reports: Orthopnea, Snoring, SOB, SOB on Exertion. denies: Cough, Hemoptysis, Wheezing Genitourinary: reports: No Symptoms Breasts: reports: No Symptoms Reported Musculoskeletal: reports: No Symptoms Integumentary: reports: No Symptoms Neurological: reports: No Symptoms Endocrine: reports: No Symptoms Hematology/Lymphatic: reports: No Symptoms Psychiatric: reports: No Symptoms Physical Exam Vital Sings: Vital Signs Temperature 98.6 F 09/29/19 13:25 Pulse Rate 103 H 09/29/19 13:53 Respiratory Rate 18 09/29/19 13:25 Blood Pressure 140/90 09/29/19 13:25 O2 Sat by Pulse Oximetry (%) 98 09/29/19 13:53 Constitutional: Yes: No Distress, Obese Eyes: Yes: Conjunctiva Clear, EOM Intact HENT: Yes: Atraumatic, Normocephalic Neck: Yes: Supple, Trachea Midline Cardiovascular: Yes: Regular Rate and Rhythm Respiratory: Yes: Diminished, SOB on Exertion. No: Accessory Muscle Use, Rales, Rhonchi, SOB, Stridor, Tachypnea, Wheezes ...Inspection: Yes: WNL ...Clubbing: No Gastrointestinal: Yes: Normal Bowel Sounds, Soft, Abdomen, Obese Renal/: Yes: WNL Musculoskeletal: Yes: WNL Extremities: Yes: WNL Edema: Yes Peripheral Pulses WNL: Yes Integumentary: Yes: WNL Neurological: Yes: WNL, Alert, Oriented ...Motor Strength: WNL Psychiatric: Yes: WNL, Alert, Oriented Labs: CBC, BMP 09/29/19 06:27 09/29/19 06:27 Imaging - Results Chest X-ray: Report Reviewed, Image Reviewed Problem List - Problems (1) Pleural effusion Code(s): J90 - PLEURAL EFFUSION, NOT ELSEWHERE CLASSIFIED (2) Pulmonary vascular congestion Code(s): R09.89 - OTH SYMPTOMS AND SIGNS INVOLVING THE CIRC AND RESP SYSTEMS (3) CHF (congestive heart failure) Code(s): I50.9 - HEART FAILURE, UNSPECIFIED Qualifiers: Heart failure type: unspecified Heart failure chronicity: acute Qualified Code(s): I50.9 - Heart failure, unspecified (4) Hypertension, condition or complication Code(s): O16.5 - UNSPECIFIED MATERNAL HYPERTENSION, COMP THE PUERPERIUM (5) Iron deficiency anemia Code(s): D50.9 - IRON DEFICIENCY ANEMIA, UNSPECIFIED (6) cardiomyopathy Code(s): O90.3 - PERIPARTUM CARDIOMYOPATHY (7) Shortness of breath on exertion Code(s): R06.02 - SHORTNESS OF BREATH Assessment/Plan IMP: D-dimer noted: No DVT by US. Do Not suspect PE. Symptoms referable to likely post- cardiomyopathy. PLAN: ECHO Lasix Supplemental O2 as needed VTE prophylaxis No need for CTA Cardiology evaluation Will follow Thank you. Dr Quinn
--- NOTE | 2019-09-29 16:55 | EKG ---
Test Reason : Blood Pressure : / mmHG Vent. Rate : 094 BPM Atrial Rate : 094 BPM P-R Int : 124 ms QRS Dur : 086 ms QT Int : 350 ms P-R-T Axes : 019 016 023 degrees QTc Int : 437 ms POOR DATA QUALITY, INTERPRETATION MAY BE ADVERSELY AFFECTED NORMAL SINUS RHYTHM NORMAL ECG WHEN COMPARED WITH ECG OF 25-DEC-2016 02:31, NO SIGNIFICANT CHANGE WAS FOUND Confirmed by SILVERIO LOCKE, GILBERTO ([id number]) on 09/29/2019 4:55:37 PM Referred By: Confirmed By:GILBERTO SAWYER MD
[2019-09-29] MEDS: ACETAMINOPHEN 325 MG TABLET (FP) PO PRN (16:59)
[2019-09-29] MEDS ORDERED: traMADol HCL 50 MG TABLET PO ONE (20:54)
[2019-09-30] MEDS: ACETAMINOPHEN 325 MG TABLET (FP) PO PRN (05:10)
[2019-09-30] MEDS: AMOX TR/POT CLAV 875MG/125MG TABLETS (FP) PO SCH (07:59)
[2019-09-30] MEDS ORDERED: PT OWN MED DRAWER 7, Y5N ONE (09:11)
[2019-09-30 09:13] VITALS: BP 135/98; PULSE 83; TEMP 98.8
[2019-09-30] MEDS: metoPROLOL SUCCINATE 25 MG TAB.SR.24H (FP) PO SCH (09:13)
[2019-09-30] MEDS: LISINOPRIL 10 MG TABLET (FP) PO SCH (09:14)
[2019-09-30] MEDS: ENOXAPARIN NA (PORCINE) 40 MG/0.4 ML DISP.SYRIN SQ SCH (09:14)
[2019-09-30] MEDS: PRENATAL VITAMINS W/ FOLIC ACID TABLET (FP) PO SCH (09:15)
[2019-09-30] MEDS: FUROSEMIDE 40 MG/4 ML INJECTABLE VIAL IVPUSH SCH (09:15)
--- NOTE | 2019-09-30 10:05 | PN ---
Progress Note, Physician Chief Complaint: no new complaints tele neg History of Present Illness: 29 year old woman with history of HTN during s/p c section - 1 week post who was admitted with shortness of breath on exertion and LE edema that has been worsening since DC. No chest pain, orthopnea, pnd. No palpitations, dizziness or syncope. ECG is normal duplex was negative for DVT. TnI negative. abd ultrasound showed ascites and pleural effusions. echo 09/29/19 normal EF - Current Medication List Current Medications: Active Medications Acetaminophen (Tylenol -) 650 mg PO Q6H PRN PRN Reason: PAIN LEVEL 6-10 Last Admin: 09/30/19 05:10 Dose: 650 mg Documented by: Amoxicillin/Clavulanate Potassium (Augmentin - 875mg Tablet) 1 tab PO BID@0800,1730 [facility] Last Admin: 09/30/19 07:59 Dose: 1 tab Documented by: Enoxaparin Sodium (Lovenox -) 40 mg SQ DAILY [facility] Last Admin: 09/30/19 09:14 Dose: 40 mg Documented by: Furosemide (Lasix Injection -) 40 mg IVPUSH DAILY [facility] Last Admin: 09/30/19 09:15 Dose: 40 mg Documented by: Lisinopril (Prinivil) 10 mg PO DAILY [facility] Last Admin: 09/30/19 09:14 Dose: 10 mg Documented by: Metoprolol Succinate (Toprol Xl -) 12.5 mg PO DAILY [facility] Last Admin: 09/30/19 09:13 Dose: 12.5 mg Documented by: Multivit/Folic Acid/Iron ( Vitamins (Sjr) -) 1 tab PO DAILY [facility] Last Admin: 09/30/19 09:15 Dose: 1 tab Documented by: Simethicone (Mylicon Liquid -) 40 mg PO QID PRN PRN Reason: INDIGESTION Last Admin: 09/29/19 06:31 Dose: 40 mg Documented by: - Objective Vital Signs: Vital Signs Temperature 98.8 F 09/30/19 09:12 Pulse Rate 83 09/30/19 09:12 Respiratory Rate 18 09/30/19 09:12 Blood Pressure 135/98 09/30/19 09:12 O2 Sat by Pulse Oximetry (%) 99 09/30/19 09:12 Constitutional: Yes: No Distress, Calm Eyes: Yes: EOM Intact HENT: Yes: Normocephalic Neck: Yes: Trachea Midline Cardiovascular: Yes: Regular Rate and Rhythm Respiratory: Yes: Dullness (bilat bases) Gastrointestinal: Yes: Soft, Ascites Extremities: Yes: WNL Edema: Yes Edema: LLE: 1+, RLE: 1+ Peripheral Pulses WNL: Yes Labs: CBC, BMP 09/29/19 06:27 09/29/19 06:27 Assessment/Plan 29 year old woman with history of HTN during s/p c section - 1 week post who was admitted with shortness of breath on exertion and LE edema that has been worsening since DC. No chest pain, orthopnea, pnd. No palpitations, dizziness or syncope. ECG is normal duplex was negative for DVT. TnI negative. abd ultrasound showed ascites and pleural effusions. bnp elevated echo 09/29/19 normal EF. IMP: -There is NO evidence of peripartum cardiomyopathy. -continue IV lasix. -Her edema is due to low oncotic pressure, low protein and low albumin. -echo is normal. -no proteinuria, needs workup for poor hepatic synthetic function. -will follow as needed.
--- NOTE | 2019-09-30 11:28 | PN ---
Progress Note (short form) - Note Progress Note: PULMONARY AWAKE/ALERT WANTS TO GO HOME FEELS WELL LESS SOB VSS/AFEBRILE ANICTERIC CLEAR LUNG EDOUARD S1S2 BS+ NO EDEMA LABS/MEDS/NOTES/IMAGES/ECHO/CARDIO CONSULT REVIEWED POST- DYSPNEA THOUGHT TO BE SECONDARY TO LOW ALBUMIN WITH REDUCED ONCOTIC PRESSURES/ ECHO NORMAL STABLE FROM PULMONARY STANDPOINT NO OBJECTION TO OUTPATIENT FOLLOW UP Alessandro LONG MD
[2019-09-30 11:56] LABS: BASO % 0.7 % (0-2.0); EOS % 3.6 % (0-4.5); HEMATOCRIT 39.7 % (32.4-45.2); HEMOGLOBIN 13.3 GM/dL (10.7-15.3); LYMPH % 40.9 % (8-40); MCH 30.1 pg (25.7-33.7); MCHC 33.4 g/dl (32.0-36.0); MEAN CELL VOLUME 89.9 fl (80-96); MEAN PLT VOLUME 9.4 fl (7.5-11.1); MONO % 8.2 % (3.8-10.2); NEUT % 46.6 % (42.8-82.8); PLATELET COUNT 345 K/MM3 (134-434); RBC 4.41 M/mm3 (3.60-5.2); RDW 16.2 % (11.6-15.6); WHITE BLOOD COUNT 6.6 K/mm3 (4.0-10.0)
[2019-09-30 12:19] LABS: ALBUMIN 2.9 g/dl (3.4-5.0); BILIRUBIN,TOTAL 0.4 mg/dL (0.2-1); BLOOD UREA NITROGEN 13.5 mg/dL (7-18); CALCIUM 9.1 mg/dL (8.5-10.1); CREATININE 0.6 mg/dL (0.55-1.3); MAGNESIUM 2.3 mg/dL (1.8-2.4); POTASSIUM 4.4 mmol/L (3.5-5.1); TOT PROT 7.1 g/dl (6.4-8.2)
--- NOTE | 2019-09-30 12:32 | DS ---
Physical Exam: SUBJECTIVE: Patient seen and examined at bedside. She denies any shortness of breath or lower extremity pain. Feels as though her feet are less swollen. She has a follow up appointment on Thursday with her PCP. Overnight had mild pain of c section site. OBJECTIVE: This is a 29 y.o. female 1 week post- ( on 09/21/2019) with hx of HTN, gestational diabetes and questionable blood clot after last in 2011 who presented to the ED on 09/28/2019 with complaints of SOB, BL LE edema, and dyspnea on exertion. Pt states after her first , she was found to have hypertension and was started on antihypertensives for a few months. Patient also reports she received antihypertensives during her hospital stay after this recent delivery for elevated BP. Pt denies prior episodes, chest pain, nausea, vomiting, dizziness, lightheadedness, productive cough, changes in bladder/bowel habits, urgency, burning, frequency. In the ED pt was found to be mildly hypertensive, bedside echo showed no rv strain, no pericardial effusion, and mild decrease in contractility. She was evaluated by pulmonary and cardiology during her stay. She had an echocardiogram which was normal. Her edema improved and her shortness of breath resolved. per cardiology, her edema is likely secondary to low oncotic pressure due to low protein and low albumin (both values have improved on today's labs). patient has been given a referral to follow up with a GI specialist. Abd US 09/28/19 = small BL pleural effusions, small amount ascites, and prominent hepatic veins possibly from fluid overload UA 3+ leuks, neg protein Vascular Study neg for DVT B/L SEE PROBLEM LIST BELOW: Vital Signs Period Temp Pulse Resp BP Sys/Sanders Pulse Ox Last 24 Hr 98.1 F-98.8 F 77-103 18-18 126-140/74-98 96-99 PHYSICAL EXAM GENERAL: The patient is awake, alert, and fully oriented, in no acute distress. HEAD: Normal with no signs of trauma. EYES: PERRL, extraocular movements intact, sclera anicteric, conjunctiva clear. No ptosis. ENT: Ears normal, nares patent, oropharynx clear without exudates, moist mucous membranes. NECK: Trachea midline, full range of motion, supple. LUNGS: +moist non-productive cough, breath sounds equal, clear to auscultation bilaterally, no wheezes, no crackles, no accessory muscle use. HEART: Regular rate and rhythm, S1, S2 without murmur, rub or gallop. ABDOMEN: Soft, tender at incision site, nondistended, normoactive bowel sounds, no guarding, no rebound, no hepatosplenomegaly, no masses. EXTREMITIES: BL mild LE non-pitting edema on knees, no upper extremity edema, all extremities warm, dry, 2+ BL radial pulses, cap refill <3sec BL upper and lower extremities NEUROLOGICAL: Normal speech, gait steady PSYCH: Normal mood, normal affect. SKIN: lower abdomen incision clean, dry, intact, warm, dry, normal turgor, no rashes or lesions notedd LABS Laboratory Results - last 24 hr 09/28/19 09/29/19 09/29/19 20:50 13:30 13:45 WBC RBC Hgb Hct MCV MCH MCHC RDW Plt Count MPV Absolute Neuts (auto) Neutrophils % Lymphocytes % Monocytes % Eosinophils % Basophils % Nucleated RBC % D-Dimer 9088 H Sodium Potassium Chloride Carbon Dioxide Anion Gap BUN Creatinine Est GFR (CKD-EPI)AfAm Est GFR (CKD-EPI)NonAf POC Glucometer Random Glucose Calcium Magnesium Total Bilirubin AST ALT Alkaline Phosphatase Total Protein Albumin Stool Occult Blood Negative COVID-19 ([facility]) Not detected 09/30/19 09/30/19 09/30/19 05:46 10:40 10:40 WBC 6.6 RBC 4.41 Hgb 13.3 Hct 39.7 D MCV 89.9 MCH 30.1 MCHC 33.4 RDW 16.2 H Plt Count 345 D MPV 9.4 Absolute Neuts (auto) 3.1 Neutrophils % 46.6 Lymphocytes % 40.9 H Monocytes % 8.2 Eosinophils % 3.6 Basophils % 0.7 Nucleated RBC % 0 D-Dimer Sodium 138 Potassium 4.4 Chloride 101 Carbon Dioxide 29 Anion Gap 8 BUN 13.5 Creatinine 0.6 Est GFR (CKD-EPI)AfAm 140.77 Est GFR (CKD-EPI)NonAf 121.46 POC Glucometer 78 Random Glucose 74 Calcium 9.1 Magnesium 2.3 Total Bilirubin 0.4 AST 66 H ALT 81 H Alkaline Phosphatase 224 H Total Protein 7.1 Albumin 2.9 L Stool Occult Blood COVID-19 ([facility]) 09/30/19 11:03 WBC RBC Hgb Hct MCV MCH MCHC RDW Plt Count MPV Absolute Neuts (auto) Neutrophils % Lymphocytes % Monocytes % Eosinophils % Basophils % Nucleated RBC % D-Dimer Sodium Potassium Chloride Carbon Dioxide Anion Gap BUN Creatinine Est GFR (CKD-EPI)AfAm Est GFR (CKD-EPI)NonAf POC Glucometer 82 Random Glucose Calcium Magnesium Total Bilirubin AST ALT Alkaline Phosphatase Total Protein Albumin Stool Occult Blood COVID-19 ([facility]) HOSPITAL COURSE: Date of Admission:09/30/19 Date of Discharge: 09/30/19 Minutes to complete discharge: 60 Discharge Summary Problems reviewed: Yes Reason For Visit: CONGESTIVE HEART FAILURE Current Active Problems Asymptomatic bacteriuria, (Acute) CHF (congestive heart failure) (Acute) Gestational diabetes mellitus (Acute) Hypertension, condition or complication (Acute) Iron deficiency anemia (Acute) Pleural effusion (Acute) cardiomyopathy (Acute) Prophylactic use of low molecular weight heparin for venous thromboembolism (Acute) Pulmonary vascular congestion (Acute) Shortness of breath on exertion (Acute) Transaminitis (Acute) Condition: Improved - Instructions Diet, Activity, Other Instructions: Mrs Glenda Santana: You came to [facility] on 09/28/2019 with shortness of breath. During your stay you were evaluated by a flow manager and camp dining room attendant. Here are our discharge instructions: Shortness of breath: Your breathing has resolved after we started you on Lasix (Furosemide). Lasix is a water pill that helps you not retain any water in your legs. You will continue this medication at home (Lasix 40mg) once per day. It is important that you see your primary care doctor on Thursday (you have an appointment) to make sure that your electrolytes remain normal. Your primary care doctor will decide how long you should remain on this medication You were evaluated by a camp dining room attendant and an echocardiogram was done. It is important that you follow up with the camp dining room attendant by calling their office for a follow up appointment. Urinary tract infection: Your urinalysis showed that you have a UTI. Continue taking Augmentin twice per day for a total of 5 days (started on 09/29/2019, you will complete it on 10/03/2019). You can have your urine studies repeated to make sure your UTI has cleared. Hypertension: You blood pressure was elevated when you presented to the emergency room. We have controlled your blood pressure with two medications: 1. Lisinopril 10mg once per day and 2. Metoprolol 12.5mg once per day. Continue taking these medications once per day. I have called in a wrist blood pressure cuff for your use at home. Please check your blood pressure BEFORE you take the Lisinopril and Metoprolol and recrod it in a book. Re check your blood pressure 6 hours after your take the medications and again record it in a book. Bring the resutls of your blood pressure reading to your primary care doctor. The blood pressure medications may need to be adjusted based on your blood pressures. Gestational diabetes: Continue to check your blood glucose twice per day at home Your Hgb A1c is 6.5%. Liver Function: we noted that you serum albumin and total protein is low, this may mean poor protein intake or protein loss. It is important that you follow up with [employer]. You can be referred by your primary care doctor with your appointment on Thursday. We have referred you to a gastroentrologist (Dr. Mock). Please call her for an appointment to make sure she takes your insurance. If you experience shortness of breath, please present to the nearest emergency room. Thank you for allowing us to care for you. Referrals: Roel Pérez MD [Staff Physician] - (camp dining room attendant. call for a follow up appointment. ) Pennie Mock DO [Staff Physician] - Ulices Montes [Primary Care Provider] - Disposition: HOME - Home Medications Comprehensive Discharge Medication List: Ambulatory Orders Acetaminophen [Pain Reliever] 500 mg PO QID PRN 09/29/19 Docusate Sodium [Colace] 100 mg PO 09/29/19 Ibuprofen 600 mg PO Q6H PRN 09/29/19 95/Iron Fum/Folic/Dha [ + Dha Combo Pack] 1 tab PO DAILY 09/29/19 Amox-Tr/K Cl [Augmentin 875-125mg Tablet -] 1 tab PO BID@0800,1730 #8 tablet 09/30/19 Blood Pressure Test Kit-Medium [Blood Pressure Monitor] 1 each MC DAILY #1 kit 09/30/19 Furosemide [Lasix] 40 mg PO DAILY #30 tablet 09/30/19 Lisinopril [Prinivil] 10 mg PO DAILY #120 tablet 09/30/19 Metoprolol Succinate [Toprol XL -] 12.5 mg PO DAILY #90 tab.sr.24h 09/30/19 Problem List - Problems (1) cardiomyopathy Assessment/Plan: BL LE non-pitting edema, vascular study (-) DVT cardiac workup negative patient to see GI specialist for possible poor hepatic synthetic function. Code(s): O90.3 - PERIPARTUM CARDIOMYOPATHY (2) Asymptomatic bacteriuria, Assessment/Plan: UA 3+ leuks continue augmentin PO x5 days Code(s): O99.89 - OTH DISEASES AND CONDITIONS COMPL PREG/CHLDBRTH; R82.71 - BACTERIURIA (3) Transaminitis Assessment/Plan: trending down monitor daily Abd US negative for acute hepatic pathology Code(s): R74.0 - NONSPEC ELEV OF LEVELS OF TRANSAMNS & LACTIC ACID DEHYDRGNSE (4) Iron deficiency anemia Assessment/Plan: folic acid with iron supplementation Code(s): D50.9 - IRON DEFICIENCY ANEMIA, UNSPECIFIED (5) Hypertension, condition or complication Assessment/Plan: discussed with Dr. Hess - pt does not have hx of HTN and does need feel pt is pre-eclamptic pt presented to ED with high BP controlled on lisinopril 10mg daily and toprol 12.5 mg daily monitor vital signs f/u with camp dining room attendant and PCP after DC to determine if pt needs to continue antihypertensives, continue for now Code(s): O16.5 - UNSPECIFIED MATERNAL HYPERTENSION, COMP THE PUERPERIUM (6) Gestational diabetes mellitus Assessment/Plan: hgb a1c 6.5 pt reports hx of gestational diabetes reports checking blood sugar twice at home daily check bgm ac/hs transplant registered nurse consult f/u after DC for repeat hgb a1c Code(s): O24.419 - GESTATIONAL DIABETES MELLITUS IN , UNSP CONTROL (7) Shortness of breath on exertion Assessment/Plan: d dimer ordered, and elevated at 9800. discussed with pulmonary and CTA was not recommended. Code(s): R06.02 - SHORTNESS OF BREATH (8) Prophylactic use of low molecular weight heparin for venous thromboembolism Code(s): Z79.01 - [facility] (CURRENT) USE OF ANTICOAGULANTS This patient is new to me today: No Emergency Visit: Yes ED Registration Date: 09/30/19 Care time: The patient presented to the Emergency Department on the above date and was hospitalized for further evaluation of their emergent condition. Critical Care patient: No - Discharge Referral Referred to [facility] No
== END 2019-09-30 14:19 | disposition home or self-care (01) ==
LOC: JER 15:57 → INTOOBSV 20:35 → JERBED 20:35 → UNDOADMOB 20:35 → JERBED 09-29 03:00 → J4S 09-29 03:00 → JERBED 09-30 09:55 → J4S 09-30 09:55
PROVIDERS: ADMIT Internal Medicine; ATTEND Nurse Practitioner Family
PROC: 3E023GC Introduction of Other Therapeutic Substance into Muscle, Percutaneous Approach (ICD-10-PCS; principal; 2019-09-30)
DX: O90.3 Peripartum cardiomyopathy (principal); O13.5 Gestational [pregnancy-induced] hypertension without significant proteinuria, complicating the puerperium; O16.5 Unspecified maternal hypertension, complicating the puerperium; R06.02 Shortness of breath; R09.89 Other specified symptoms and signs involving the circulatory and respiratory systems; D50.9 Iron deficiency anemia, unspecified; R74.0 Nonspecific elevation of levels of transaminase and lactic acid dehydrogenase [LDH]; Z79.01 Long term (current) use of anticoagulants; J90 Pleural effusion, not elsewhere classified; I50.9 Heart failure, unspecified; Z29.9 Encounter for prophylactic measures, unspecified
CPT/HCPCS: 36415; 71046-TC-FY; 76700-TC; 80053; 80061; 81003; 82272; 82565; 82728; 82962; 83036; 83540; 83550; 83690; 83721; 83735; 83880; 84100; 84156; 84443; 84484; 85025; 85045; 85379; 87086; 93005; 93010; 93306-TC; 93308; 93970-TC; 94761; 96372; 96374; 96376; 97116-GP; 97161-GP; 99285-25; G0378; U0003

== ENCOUNTER 2020-01-16 15:27 | Emergency (ER) | payer OTHER ==
[2020-01-16 15:43] VITALS: BP 130/99; PULSE 92; TEMP 97.9; BMI 32.1
[2020-01-16] MEDS ORDERED: IBUPROFEN 600 MG TABLET (FP) PO ONE ×2 (17:53→19:18)
[2020-01-16 18:28] LABS: THROAT:GRP A STREP ANTIGEN Positive (Negative)
[2020-01-16] MEDS ORDERED: PENICILLIN G BENZATHINE 1,200,000 UNIT/2 ML PFS IM ONE ×2 (18:57→19:19)
[2020-01-16] MEDS ORDERED: DEXAMETHASONE LIQUID 0.5 MG/5 ML PO ONE (18:57)
[2020-01-16] MEDS ORDERED: DEXAMETHASONE SOD PHOSPHATE 10 MG/1 ML VIAL ONE (19:18)
== END 2020-01-16 19:29 | disposition home or self-care (01) ==
LOC: JER 15:27
DX: J02.0 Streptococcal pharyngitis (principal)
CPT/HCPCS: 87804; 87880; 99284-25; C9803; U0003

== ENCOUNTER 2020-03-07 23:26 | Emergency (ER) | payer OTHER ==
[2020-03-08 00:05] VITALS: BP 127/79; PULSE 86; TEMP 98; BMI 30.4
[2020-03-08] MEDS ORDERED: KETOROLAC TROMETHAMINE 30 MG/1 ML VIAL IM ONE (00:06)
[2020-03-08] MEDS ORDERED: diazePAM 2 MG TABLET PO ONE (00:06)
[2020-03-08] MEDS ORDERED: diazePAM 5 MG TABLET ONE (00:35)
[2020-03-08] MEDS ORDERED: KETOROLAC TROMETHAMINE 30 MG/1 ML VIAL ONE (00:35)
== END 2020-03-08 01:11 | disposition home or self-care (01) ==
LOC: JER 23:26
PROC: 3E0233Z Introduction of Anti-inflammatory into Muscle, Percutaneous Approach (ICD-10-PCS; principal; 2020-03-08)
DX: M54.2 Cervicalgia (principal)
CPT/HCPCS: 99284-25

== ENCOUNTER 2020-03-19 22:24 | Emergency (ER) | payer OTHER ==
[2020-03-19 22:34] VITALS: BP 135/77; PULSE 89; TEMP 98.4; BMI 32.3
[2020-03-20] MEDS ORDERED: KETOROLAC TROMETHAMINE 30 MG/1 ML VIAL IM ONE (00:06)
[2020-03-20] MEDS ORDERED: LIDOCAINE 5% TOPICAL PATCH TP ONE (00:06)
[2020-03-20] MEDS ORDERED: KETOROLAC TROMETHAMINE 30 MG/1 ML VIAL ONE (00:24)
[2020-03-20] MEDS ORDERED: LIDOCAINE 5% TOPICAL PATCH ONE ×2 (00:24→00:25)
[2020-03-20] MEDS ORDERED: LIDOCAINE PATCH REMOVAL MC SCH (22:00)
== END 2020-03-20 01:55 | disposition home or self-care (01) ==
LOC: JER 22:24
DX: M62.838 Other muscle spasm (principal); L13.1 Subcorneal pustular dermatitis
CPT/HCPCS: 99284-25

== ENCOUNTER 2022-02-26 02:15 | Emergency (ER) | payer OTHER ==
[2022-02-26 02:21] VITALS: BP 131/87; PULSE 86; RESP 17; TEMP 98.1; BMI 28.2
[2022-02-26] MEDS ORDERED: PHENAZOPYRIDINE HCL 100 MG TABLET (FP) PO ONE (02:58)
[2022-02-26] MEDS ORDERED: PHENAZOPYRIDINE HCL 100 MG TABLET (FP) ONE (03:07)
[2022-02-26 03:26] LABS: EPI CELLS >36 /uL (0-25.1); HCG,QUALITATIVE URINE Negative; HYALINE CASTS 13 /uL (0-3.1); PH,URINE 5.5 (5.0-8.0); URINE APPEARANCE TURBID; URINE BACTERIA 1708 /uL (0-1359); URINE BILIRUBIN NEGATIVE (NEGATIVE); URINE COLOR RED; URINE GLUCOSE (UA) NEGATIVE (NEGATIVE); URINE KETONE TRACE (NEGATIVE); URINE LEUK ESTERASE 3+ (NEGATIVE); URINE NITRITE NEGATIVE (NEGATIVE); URINE PROTEIN 2+ (NEGATIVE); URINE WBC 6941 /uL (0-25.8)
[2022-02-26] MEDS ORDERED: CEPHALEXIN MONOHYDRATE 500 MG CAPSULE (UD) ONE (04:09)
[2022-02-26] MEDS: CEPHALEXIN MONOHYDRATE 500 MG CAPSULE (UD) PO ONE ×2 (04:09→05:53)
[2022-02-26] MEDS ORDERED: DOXYCYCLINE HYCLATE 100 MG CAPSULE PO ONE ×2 (04:38→05:41)
[2022-02-26] MEDS ORDERED: metroNIDAZOLE 250 MG TABLET PO ONE (04:40)
[2022-02-26 05:14] LABS: EPI CELLS 9 /uL (0-25.1); HYALINE CASTS 0 /uL (0-3.1); URINE APPEARANCE TURBID; URINE BILIRUBIN NEGATIVE (NEGATIVE); URINE COLOR DK YELLOW; URINE GLUCOSE (UA) NEGATIVE (NEGATIVE); URINE KETONE NEGATIVE (NEGATIVE); URINE LEUK ESTERASE 3+ (NEGATIVE); URINE NITRITE POSITIVE (NEGATIVE); URINE PROTEIN TRACE (NEGATIVE); URINE RBC 4052 /uL (0-23.9); URINE WBC 2040 /uL (0-25.8)
[2022-02-26] MEDS ORDERED: metroNIDAZOLE 250 MG TABLET ONE (05:40)
[2022-02-26] MEDS ORDERED: LIDOCAINE HCL/PF 1% SDV 5ML VIAL ONE (05:41)
[2022-02-26 07:58] LABS: URINE CRYSTALS FEW /hpf; URINE RBC 7391.9 /uL (0-23.9)
[2022-02-26 11:54] LABS: URINE BACTERIA 71 /uL (0-1359)
== END 2022-02-26 06:06 | disposition home or self-care (01) ==
LOC: JER 02:15
PROC: 3E023GC Introduction of Other Therapeutic Substance into Muscle, Percutaneous Approach (ICD-10-PCS; principal; 2022-02-26)
DX: N39.0 Urinary tract infection, site not specified (principal); N73.9 Female pelvic inflammatory disease, unspecified
CPT/HCPCS: 36415; 81003; 84703; 87086; 87186; 87491; 87591; 87661; 99284-25

== ENCOUNTER 2022-10-24 12:48 | Emergency (ER) | payer OTHER ==
[2022-10-24 13:03] VITALS: BP 119/82; PULSE 112; RESP 18; TEMP 98.3; BMI 29.7
[2022-10-24] MEDS ORDERED: ACETAMINOPHEN 500 MG TABLET (FP) PO ONE (13:16)
[2022-10-24] MEDS ORDERED: IBUPROFEN 600 MG TABLET (FP) PO ONE ×2 (13:16→13:19)
[2022-10-24] MEDS ORDERED: CYCLOBENZAPRINE HCL 10 MG TABLET (FP) PO ONE (13:16)
[2022-10-24] MEDS ORDERED: LIDOCAINE 5% TOPICAL PATCH TP ONE (13:16)
[2022-10-24] MEDS ORDERED: LIDOCAINE 5% TOPICAL PATCH ONE (13:19)
[2022-10-24] MEDS ORDERED: ACETAMINOPHEN 500 MG TABLET (FP) ONE (13:19)
[2022-10-24] MEDS ORDERED: CYCLOBENZAPRINE HCL 10 MG TABLET (FP) ONE (13:19)
[2022-10-24] MEDS ORDERED: LIDOCAINE PATCH REMOVAL MC SCH (22:00)
== END 2022-10-24 14:05 | disposition home or self-care (01) ==
LOC: JER 12:48
DX: M54.50 Low back pain, unspecified (principal); S39.012A Strain of muscle, fascia and tendon of lower back, initial encounter; X58.XXXA Exposure to other specified factors, initial encounter
CPT/HCPCS: 99283-25

== ENCOUNTER 2023-07-24 11:49 | Emergency (ER) | payer OTHER ==
[2023-07-24 12:09] VITALS: BP 117/82; PULSE 90; RESP 19; TEMP 98.2; BMI 29.0
[2023-07-24 12:47] LABS: HCG,QUALITATIVE URINE Positive
[2023-07-24 12:54] LABS: PH,URINE 5.5 (5.0-8.0); URINE APPEARANCE CLEAR; URINE BILIRUBIN NEGATIVE (NEGATIVE); URINE COLOR YELLOW; URINE GLUCOSE (UA) NEGATIVE (NEGATIVE); URINE KETONE NEGATIVE (NEGATIVE); URINE LEUK ESTERASE NEGATIVE (NEGATIVE); URINE NITRITE NEGATIVE (NEGATIVE); URINE PROTEIN NEGATIVE (NEGATIVE); URINE UROBILINOGEN 0.2 mg/dL (0.2-1.0)
[2023-07-24 13:15] LABS: BASO % 0.7 % (0-2.0); EOS % 2.2 % (0-4.5); HEMATOCRIT 38.3 % (32.4-45.2); HEMOGLOBIN 12.6 GM/dL (10.7-15.3); LYMPH % 59.5 % (8-40); MCH 29.7 pg (25.7-33.7); MCHC 32.7 g/dl (32.0-36.0); MEAN CELL VOLUME 90.6 fl (80-96); MEAN PLT VOLUME 8.5 fl (7.5-11.1); MONO % 6.7 % (3.8-10.2); NEUT % 30.9 % (42.8-82.8); PLATELET COUNT 328 10^3/uL (134-434); RBC 4.23 M/mm3 (3.60-5.2); RDW 14.1 % (11.6-15.6); WHITE BLOOD COUNT 3.9 K/mm3 (4.0-10.0)
[2023-07-24 13:45] LABS: POTASSIUM 3.9 mmol/L (3.5-5.1)
[2023-07-24 13:47] LABS: ALBUMIN 3.5 g/dl (3.4-5.0); BLOOD UREA NITROGEN 5.2 mg/dL (7-18); CALCIUM 8.8 mg/dL (8.5-10.1)
[2023-07-24 13:50] LABS: CREATININE 0.5 mg/dL (0.55-1.3)
[2023-07-24 13:52] LABS: BILIRUBIN,TOTAL 0.3 mg/dL (0.2-1); TOT PROT 6.7 g/dl (6.4-8.2)
== END 2023-07-24 17:50 | disposition home or self-care (01) ==
LOC: JER 11:49
DX: O20.9 Hemorrhage in early pregnancy, unspecified (principal); O26.891 Other specified pregnancy related conditions, first trimester; R10.30 Lower abdominal pain, unspecified; Z3A.01 Less than 8 weeks gestation of pregnancy; O99.891 Other specified diseases and conditions complicating pregnancy; R35.0 Frequency of micturition; R39.15 Urgency of urination
CPT/HCPCS: 36415; 76817-TC; 80053; 81003; 84702; 84703; 85025; 86850; 86900; 86901; 87086; 99284-25

== ENCOUNTER 2023-08-09 20:24 | Emergency (ER) | payer OTHER ==
[2023-08-09 20:28] VITALS: TEMP 98.8; BMI 29.0
[2023-08-09] MEDS ORDERED: ACETAMINOPHEN INJECTION 100 ML IVPB ONE (21:05)
[2023-08-09] MEDS: ACETAMINOPHEN 1000 MG/100 ML BAG IVPB ONE (21:15)
[2023-08-09 21:16] LABS: BASO % 0.6 % (0-2.0); EOS % 3.4 % (0-4.5); HEMATOCRIT 32.9 % (32.4-45.2); HEMOGLOBIN 10.8 GM/dL (10.7-15.3); LYMPH % 44.4 % (8-40); MCH 30.6 pg (25.7-33.7); MCHC 32.9 g/dl (32.0-36.0); MEAN CELL VOLUME 92.9 fl (80-96); MEAN PLT VOLUME 7.8 fl (7.5-11.1); MONO % 6.1 % (3.8-10.2); NEUT % 45.5 % (42.8-82.8); PLATELET COUNT 310 10^3/uL (134-434); RBC 3.54 M/mm3 (3.60-5.2); RDW 14.4 % (11.6-15.6)
[2023-08-09 21:23] LABS: INR 0.97 (0.83-1.09); PROTHROMBIN TIME (PATIENT) 11.2 SEC (9.7-13.0)
[2023-08-09 21:26] LABS: ACTIVATED PTT 30.1 SECONDS (25.2-36.5)
[2023-08-09] MEDS ORDERED: morphine SULFATE 4 MG/ML VIAL ONE (21:45)
[2023-08-09] MEDS: morphine CARPU-JECT 4 MG/1 ML DISP.SYRIN IVPUSH ONE (21:57)
[2023-08-09 21:58] VITALS: BP 124/80; PULSE 97; RESP 20
[2023-08-09 22:09] LABS: POTASSIUM 4.1 mmol/L (3.5-5.1)
[2023-08-09 22:11] LABS: BLOOD UREA NITROGEN 14.6 mg/dL (7-18); CALCIUM 8.1 mg/dL (8.5-10.1)
[2023-08-09 22:12] LABS: ALBUMIN 3.1 g/dl (3.4-5.0)
[2023-08-09 22:14] LABS: CREATININE 0.6 mg/dL (0.55-1.3)
[2023-08-09 22:16] LABS: BILIRUBIN,TOTAL 0.2 mg/dL (0.2-1); TOT PROT 6.1 g/dl (6.4-8.2)
[2023-08-10 01:24] LABS: PH,URINE 7.5 (5.0-8.0); URINE APPEARANCE TURBID; URINE BILIRUBIN NEGATIVE (NEGATIVE); URINE COLOR YELLOW; URINE GLUCOSE (UA) NEGATIVE (NEGATIVE); URINE KETONE NEGATIVE (NEGATIVE); URINE LEUK ESTERASE NEGATIVE (NEGATIVE); URINE NITRITE NEGATIVE (NEGATIVE); URINE PROTEIN NEGATIVE (NEGATIVE)
== END 2023-08-10 01:43 | disposition home or self-care (01) ==
LOC: JER 20:24
PROC: 3E033NZ Introduction of Analgesics, Hypnotics, Sedatives into Peripheral Vein, Percutaneous Approach (ICD-10-PCS; principal; 2023-08-09)
PROC: 3E033NZ Introduction of Analgesics, Hypnotics, Sedatives into Peripheral Vein, Percutaneous Approach (ICD-10-PCS; 2023-08-09)
DX: O26.891 Other specified pregnancy related conditions, first trimester (principal); R10.2 Pelvic and perineal pain; R10.30 Lower abdominal pain, unspecified; Z3A.00 Weeks of gestation of pregnancy not specified
CPT/HCPCS: 36415; 76817-TC; 80053; 81003; 84702; 85025; 85610; 85730; 86850; 86900; 86901; 87086; 99284-25; J0131

== ENCOUNTER 2023-08-11 18:46 | Inpatient (IN) | payer OTHER ==
[2023-08-11 18:54] VITALS: BMI 29.0
[2023-08-11 20:41] LABS: BASO % 0.6 % (0-2.0); EOS % 2.1 % (0-4.5); HEMATOCRIT 34.7 % (32.4-45.2); HEMOGLOBIN 11.6 GM/dL (10.7-15.3); LYMPH % 39.7 % (8-40); MCH 30.6 pg (25.7-33.7); MCHC 33.4 g/dl (32.0-36.0); MEAN CELL VOLUME 91.4 fl (80-96); MEAN PLT VOLUME 7.8 fl (7.5-11.1); NEUT % 51.6 % (42.8-82.8); PLATELET COUNT 370 10^3/uL (134-434); RDW 14.3 % (11.6-15.6); WHITE BLOOD COUNT 5.9 K/mm3 (4.0-10.0)
[2023-08-11] MEDS ORDERED: morphine SULFATE 4 MG/ML VIAL ONE (20:44)
[2023-08-11] MEDS: morphine CARPU-JECT 4 MG/1 ML DISP.SYRIN IVPUSH ONE (20:47)
[2023-08-11 20:50] LABS: INR 1.01 (0.83-1.09); PROTHROMBIN TIME (PATIENT) 11.4 SEC (9.7-13.0)
[2023-08-11 20:52] LABS: ACTIVATED PTT 31.2 SECONDS (25.2-36.5)
[2023-08-11 21:10] LABS: POTASSIUM 4.1 mmol/L (3.5-5.1)
[2023-08-11 21:12] LABS: CALCIUM 8.5 mg/dL (8.5-10.1)
[2023-08-11 21:13] LABS: ALBUMIN 3.6 g/dl (3.4-5.0); BLOOD UREA NITROGEN 10.7 mg/dL (7-18)
[2023-08-11 21:16] LABS: CREATININE 0.5 mg/dL (0.55-1.3)
[2023-08-11 21:17] LABS: BILIRUBIN,TOTAL 0.3 mg/dL (0.2-1)
[2023-08-11] MEDS ORDERED: CEFTRIAXONE 1 GM/50 ML BAG ONE (23:35)
[2023-08-11] MEDS ORDERED: metroNIDAZOLE 250 MG TABLET ONE (23:35)
[2023-08-11] MEDS ORDERED: DOXYCYCLINE HYCLATE 100 MG CAPSULE PO ONE (23:39)
[2023-08-11] MEDS: metroNIDAZOLE 250 MG TABLET PO ONE (23:47)
[2023-08-11] MEDS: DOXYCYCLINE HYCLATE 100 MG CAPSULE PO ONE (23:47)
[2023-08-11] MEDS: CEFTRIAXONE 1 GM in DEXTROSE 5%-WATER - 100 ML IVPB ONE (23:47)
[2023-08-12 00:47] LABS: BASO % 0.5 % (0-2.0); EOS % 2.3 % (0-4.5); HEMATOCRIT 32.8 % (32.4-45.2); HEMOGLOBIN 10.9 GM/dL (10.7-15.3); MCH 30.4 pg (25.7-33.7); MCHC 33.2 g/dl (32.0-36.0); MEAN CELL VOLUME 91.5 fl (80-96); MEAN PLT VOLUME 7.9 fl (7.5-11.1); NEUT % 46.2 % (42.8-82.8); PLATELET COUNT 348 10^3/uL (134-434); RBC 3.59 M/mm3 (3.60-5.2); RDW 14.9 % (11.6-15.6); WHITE BLOOD COUNT 6.3 K/mm3 (4.0-10.0)
[2023-08-12] MEDS ORDERED: morphine SULFATE 4 MG/ML VIAL ONE ×2 (01:07→05:45)
[2023-08-12] MEDS ORDERED: ONDANSETRON 4 MG/2 ML VIAL ONE ×2 (01:07→10:52)
[2023-08-12] MEDS: ONDANSETRON 4 MG/2 ML VIAL IVPUSH ONE (01:16)
[2023-08-12] MEDS: morphine CARPU-JECT 4 MG/1 ML DISP.SYRIN IVPUSH ONE (01:16)
[2023-08-12] MEDS: LACTATED RINGERS SOLUTION 1,000 ML IV SCH ×2 (05:30→12:35)
[2023-08-12] MEDS: morphine SULFATE 4 MG/ML VIAL IVPUSH PRN (05:50)
[2023-08-12 06:17] LABS: URINE APPEARANCE CLEAR; URINE BILIRUBIN NEGATIVE (NEGATIVE); URINE COLOR YELLOW; URINE GLUCOSE (UA) NEGATIVE (NEGATIVE); URINE KETONE NEGATIVE (NEGATIVE); URINE LEUK ESTERASE NEGATIVE (NEGATIVE); URINE NITRITE NEGATIVE (NEGATIVE); URINE PROTEIN NEGATIVE (NEGATIVE); URINE UROBILINOGEN 0.2 mg/dL (0.2-1.0)
[2023-08-12 07:40] LABS: BASO % 0.4 % (0-2.0); EOS % 1.8 % (0-4.5); HEMATOCRIT 31.1 % (32.4-45.2); HEMOGLOBIN 10.5 GM/dL (10.7-15.3); LYMPH % 44.2 % (8-40); MCH 31.1 pg (25.7-33.7); MCHC 33.8 g/dl (32.0-36.0); MEAN CELL VOLUME 92.1 fl (80-96); MEAN PLT VOLUME 8.1 fl (7.5-11.1); MONO % 7.6 % (3.8-10.2); PLATELET COUNT 314 10^3/uL (134-434); RBC 3.37 M/mm3 (3.60-5.2); RDW 14.6 % (11.6-15.6); WHITE BLOOD COUNT 4.9 K/mm3 (4.0-10.0)
[2023-08-12] MEDS ORDERED: SUCCINYLCHOLINE CHLORIDE 200 MG/10 ML SYRINGE ONE (08:26)
[2023-08-12] MEDS ORDERED: PROPOFOL 20 ML ONE (08:26)
[2023-08-12] MEDS ORDERED: ONDANSETRON 4 MG/2 ML VIAL IVPUSH PRN (08:39)
[2023-08-12] MEDS ORDERED: DEXAMETHASONE SOD PHOSPHATE 4 MG/1 ML VIAL ONE (09:14)
[2023-08-12] MEDS ORDERED: ROCURONIUM BROMIDE 50 MG/5 ML SYRINGE ONE (09:16)
[2023-08-12] MEDS: BUPIVACAINE HCL/PF 0.25% (2.5MG/ML) 10 ML VIAL IJ ONE (09:45)
[2023-08-12] MEDS ORDERED: ACETAMINOPHEN INJECTION 100 ML IVPB ONE (09:50)
[2023-08-12] MEDS ORDERED: BUPIVACAINE HCL/PF 0.25% (2.5MG/ML) 10 ML VIAL ONE (09:56)
[2023-08-12] MEDS ORDERED: NEOSTIGMINE METHYLSULFATE 0.5 MG/1 ML - 10 ML MDV ONE (10:51)
[2023-08-12] MEDS ORDERED: GLYCOPYRROLATE 0.2 MG/1 ML VIAL ONE (10:52)
[2023-08-12 18:11] VITALS: RESP 18
[2023-08-12] MEDS ORDERED: ONDANSETRON 4 MG/2 ML VIAL IM PRN (19:56)
[2023-08-12] MEDS ORDERED: ACETAMINOPHEN 325 MG TABLET (FP) PO PRN (19:56)
[2023-08-12] MEDS: IBUPROFEN 600 MG TABLET (FP) PO PRN (22:54)
[2023-08-13 06:21] VITALS: PULSE 103
[2023-08-13 08:52] LABS: BASO % 0.2 % (0-2.0); EOS % 0.6 % (0-4.5); HEMATOCRIT 29.6 % (32.4-45.2); LYMPH % 35.9 % (8-40); MCH 31.3 pg (25.7-33.7); MCHC 33.8 g/dl (32.0-36.0); MEAN CELL VOLUME 92.4 fl (80-96); MEAN PLT VOLUME 8.1 fl (7.5-11.1); MONO % 6.9 % (3.8-10.2); NEUT % 56.4 % (42.8-82.8); PLATELET COUNT 336 10^3/uL (134-434); RDW 14.7 % (11.6-15.6); WHITE BLOOD COUNT 7.4 K/mm3 (4.0-10.0)
[2023-08-13 11:27] VITALS: BP 113/63; TEMP 96.8
== END 2023-08-13 14:40 | disposition home or self-care (01) | DRG 545 ==
LOC: JER 18:46 → JERBED 08-12 01:04 → UNDOADMOB 08-12 01:04 → OBSVTOIN 08-12 01:04 → INTOOBSV 08-12 01:04 → JERBED 08-12 03:53 → J3W 08-12 03:53 → J2C 08-12 10:16 → J3W 08-12 10:16 → JASUSAT 08-12 11:47 → J5S 08-12 14:33 → JASUSAT 08-12 19:55
PROVIDERS: ADMIT Obstetrics & Gynecology; ATTEND Obstetrics & Gynecology Obstetrics
PROC: 10T24ZZ Resection of Products of Conception, Ectopic, Percutaneous Endoscopic Approach (ICD-10-PCS; principal; 2023-08-12 08:30)
PROC: 0UT64ZZ Resection of Left Fallopian Tube, Percutaneous Endoscopic Approach (ICD-10-PCS; 2023-08-12 08:30)
DX: O00.102 Left tubal pregnancy without intrauterine pregnancy (principal); K66.1 Hemoperitoneum; I10 Essential (primary) hypertension; I34.0 Nonrheumatic mitral (valve) insufficiency
CPT/HCPCS: 36415; 76817-TC; 80053; 81003; 84702; 85025; 85610; 85730; 86850; 86900; 86901; 87086; 88305-TC; 94760; 99284-25; 99285-25; J0131